=== PATIENT | female | born 1975 | race Two or more races ===

== ENCOUNTER 2020-07-28 12:56 | Emergency (ER) | payer MEDICAID, SELFPAY ==
[2020-07-28 13:28] VITALS: BP 125/67; PULSE 112; RESP 20; TEMP 37.7; O2SAT 98; BMI 23.3
[2020-07-28 13:36] VITALS: BP 125/67; PULSE 78; RESP 21; TEMP 37.7; O2SAT 98
--- NOTE | 2020-07-28 13:59 | ED_ITS ---
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 No vomiting, diarrhea, abdominal pain, cough, shortness of breath or chest pain Also c/o low back pain and voiding small amounts. Second COVID vaccine 3 days ago. Related Data Previous Rx's Medication Instructions Recorded nitrofurantoin monohyd/m-cryst 100 mg PO Q12H 7 Days #14 cap 07/28/20 [Macrobid] phenazopyridine [Pyridium] 200 mg PO TID #6 tab 07/28/20 Allergies Allergy/AdvReac Type Severity Reaction Status Date / Time Unable to Assess Allergy Verified 07/28/20 13:44 Review of Systems Review of Systems: Yes all other systems are reviewed and are negative Constitutional: Constitutional: Reports no additional constitutional complaints, Reports body ache(s), Denies chills, Reports fever(s), Denies headache(s) and Denies weakness Eyes: Eyes: Reports no additional eye complaints and Denies change in vision ENT: Reports system reviewed and no additional complaints, except as documented, Denies dizziness, Denies headache(s), Denies nasal congestion, Denies nasal discharge and Denies neck pain Cardiovascular: Cardiovascular: Reports no additional cardiovascular complaints, Denies chest pain, Denies leg edema and Denies dyspnea Respiratory: Respiratory: Reports no additional respiratory complaints, Denies cough and Denies dyspnea Gastrointestinal: Gastrointestinal: Reports no additional gastrointestinal complaints, Denies abdominal pain, Denies diarrhea, Denies nausea and Denies vomiting Genitourinary: Genitourinary: Reports no additional female genitourinary complaints and Denies urinary incontinence Musculoskeletal: Musculoskeletal: Reports no additional musculoskeletal complaints, Reports back pain, Denies arthralgias, Denies joint swelling, Denies neck pain, Denies numbness and Denies tingling Integumentary/Breasts: Skin/Breast: Reports system reviewed and no additional complaints, except as docu and Denies rash Neurologic: Reports system reviewed and no additional complaints, except as documented, Denies Abnormal speech present, Denies dizziness, Denies headache(s), Denies numbness, Denies tingling and Denies weakness PMFSH Past Medical History Attestation statement: The following information was validated with the patient. Source: old records reviewed and nursing notes reviewed Medical History No known health problems Social History Social History Alcohol intake: never Smoking Status: Never smoker Use of substances other than those prescribed or required for medical reasons: No Advance Directives: No Advance Directives Information Provided: No Physical Exam Vital Signs: Vital Signs: Last Vital Signs Temp 100 F 07/28/20 13:36 Pulse 78 07/28/20 13:36 Resp 21 H 07/28/20 13:36 BP 125/67 07/28/20 13:36 Pulse Ox 98 07/28/20 13:36 Body Mass Index 23.3 Const: General: cooperative, healthy appearing, comfortable and no acute distress Orientation/consciousness: patient oriented x3 Limitations: no limitations HENMT: Head: Yes normal to inspection Ears: hearing grossly normal bilatera lly and TM's normal bilaterally General nose exam: Normal external nose present Face and sinus: Yes normal facial exam Mouth: Normal oral and palatal mucosa present Throat: Yes posterior oropharynx normal, Yes tonsils normal and Yes uvula midline Eyes: General: appearance normal, both eyes and all related structures Pupils: Equal, round and reactive pupils present Neck: Neck: Yes normal visual inspection Chest: Chest palpation & inspection: normal inspection of the chest Resp: Effort & Inspection: normal respiratory effort Auscultation: clear to auscultation bilaterally Cardio: Rate: regular rate Rhythm: regular rhythm Peripheral pulses: Peripheral pulses 2+ throughout GI: Inspection: Yes normal to inspection Palpation (GI): Soft to palpation and nontender Auscultation: normal bowel sounds Back/Spine/Pelvis: Thoracic/Lumbar Spine: thoracic and lumbar spine normal to inspection Skin: General skin exam: no rashes or lesions noted Neuro: General: patient oriented x3, no focal motor deficits and normal sensation to monofilament Cranial nerves: Yes Equal, round and reactive pupils present Cognition (Neuro): normal cognition Speech: No Abnormal speech present Gait exam (Neuro): Normal gait present Motor exam (neuro): 5/5 motor strength present throughout Extrem: General: Yes normal to inspection Course Course Course Narrative: 45-year-old female here with subjective fevers, body aches, low back pain and voiding small amounts for several days. Of note, the patient did receive her 2nd COVID vaccine 3 days ago. Will need COVID screen, UA. 1500-COVID screen negative. UA consistent with UTI. No CVA tenderness, fever or systemic signs of infection. Will treat with course of antibiotics. Reviewed worrisome signs and symptoms when to return to the emergency department. Comfortable discharge home. Medical Decision Making Medical Records Medical records reviewed: Yes I reviewed the patient's medical records. Lab Data Lab results reviewed: Yes I reviewed the patient's lab results. Labs: Lab Results 07/28/20 07/28/20 07/28/20 Range/Units 14:15 14:15 14:15 Urine Color YELLOW Urine Appearance HAZY Urine pH 7.0 (5.0-8.0) Ur Specific [place] 1.010 (1.005-1.025) Urine Protein NEG (NEG-TRACE) MG/DL Urine Glucose (UA) NEG (NEG) MG/DL Urine Ketones NEG (NEG) MG/DL Urine Blood 2+ H (NEG) Urine Nitrite NEG (NEG) Ur Leukocyte Esterase 2+ H (NEG) Urine RBC 5-9 H (0) /HPF Urine WBC 30-49 H (0-4) /HPF Urine WBC Clumps NOTED Ur Squamous Epith Cells TRACE /LPF Urine Bacteria 1+ /LPF Urine Test NEGATIVE (NEGATIVE) COVID-19 (SHANNA) Negative (Negative) COVID-19 Clin Com See Note Discharge Plan Discharge Clinical Impression: UTI (urinary tract infection) Patient Disposition: Home, Self-Care Instructions: Urinary Tract Infection in Women (ED) Additional Instructions: Increase fluids, rest Your COVID screen was negative Prescriptions: New nitrofurantoin monohyd/m-cryst [Macrobid] 100 mg capsule 100 mg PO Q12H 7 Days Qty: 14 RF: 0 phenazopyridine [Pyridium] 200 mg tablet 200 mg PO TID Qty: 6 RF: 0 Referrals: Physician,Unknown [Primary Care Provider] - 2 days Interventions: ED Discharge Assessment Last Done: 07/28/20 15:41 Discharge Date/Time: 07/28/20 15:41 Print Language: Stateless
[2020-07-28 14:26] LABS: Glucose Urine UA NEG (NEG); Leukocyte Esterase Urine 2+ (NEG); Nitrite Urine NEG (NEG); UACC Culture Trigger YES; Urine Blood 2+ (NEG); Urine Ketones NEG (NEG); Urine Protein NEG (NEG-TRACE)
[2020-07-28 14:27] LABS: Appearance Urine HAZY; Color Urine YELLOW
[2020-07-28 14:28] LABS: UPreg QC Valid YES; Urine Pregnancy NEGATIVE (NEGATIVE)
[2020-07-28 14:34] LABS: Bacteria Urine 1+ /LPF; Squamous Epithelial Cell Urine TRACE /LPF; WBC Clumps Urine NOTED; WBC Urine 30-49 /HPF (0-4)
[2020-07-28 14:40] LABS: COVID-19 Test Negative (Negative)
== END 2020-07-28 15:41 | disposition home or self-care (01) ==
PROVIDERS: Nurse Practitioner Family; Emergency Provider Emergency Medicine Emergency Medical Services
DX: N39.0 Urinary tract infection, site not specified (principal); R50.9 Fever, unspecified; M79.10 Myalgia, unspecified site; R05 Cough; Z20.822 Contact with and (suspected) exposure to COVID-19; Z79.899 Other long term (current) drug therapy
CPT/HCPCS: 36415; 81001; 81003; 81025; 87086; 87088; 87186; 87635; 99284

== ENCOUNTER 2020-10-27 13:01 | Outpatient (REF) | payer MEDICAID, OTHER, SELFPAY ==
--- NOTE | ~2020-10-27 | MM_ITS ---
EXAMINATION: MM SCREENING DIGITAL BREAST TOMOSYNTHESIS, BILATERAL CLINICAL INFORMATION: Screening. Asymptomatic. Prior outside mammography from [facility] unavailable. Age 45. No known family history breast cancer. The lifetime risk of breast cancer based on the Tyrer-Cuzick Model is 10%. COMPARISON: None. TECHNIQUE: Digital breast tomosynthesis is performed in both the craniocaudal and mediolateral oblique views along with computer-aided detection (CAD). Synthesized 2D images are generated from the tomosynthesis. FINDINGS: The breasts are heterogeneously dense, which may obscure small masses (ACR BI-RADS breast composition Category c). There is a benign-appearing circumscribed nodule with smooth margins mid 12:30 o'clock right breast measuring 0.8 x 0.6 cm. As this exam represents new baseline, patient will be recalled for targeted ultrasound to further characterize. There are scattered bilateral benign-appearing punctate calcifications, greater in number on right. No focal grouping or pleomorphic types. There is no architectural abnormality. The axilla and skin contours are unremarkable. MM/MM tomosynthesis screening BI IMPRESSION: 1. Right: Circumscribed benign-appearing nodule mid 12:30 o'clock position. 2. Left: No mammographic evidence of malignancy. ASSESSMENT: BI-RADS 0: Incomplete - Need Additional Imaging Evaluation RECOMMENDATION: 1. Targeted ultrasound right breast. 2. Radiology department staff will contact the patient for additional imaging. This patient's information was entered into a reminder system with a target due date for their next mammogram.
== END 2020-10-27 13:02 | disposition home or self-care (01) ==
LOC: HO.MAMMO 13:01
PROVIDERS: PCP Family Medicine; Visit Provider Emergency Medicine
DX: Z12.31 Encounter for screening mammogram for malignant neoplasm of breast (principal)
CPT/HCPCS: 77063; 77067

== ENCOUNTER 2020-11-04 13:46 | Outpatient (REF) | payer MEDICAID, OTHER, SELFPAY ==
--- NOTE | ~2020-11-04 | US_ITS ---
EXAMINATION: US DIAGNOSTIC ULTRASOUND BREAST, RIGHT CLINICAL INFORMATION: Recall from screening for benign-appearing circumscribed nodule with smooth margins mid 12:30 o'clock right breast 0.8 x 0.6 cm. Prior outside mammography from [facility] unavailable. Age 45. TC score 10%. COMPARISON: Mammography 10/27/2020. TECHNIQUE: Ultrasound right breast is targeted to the upper breast using grayscale imaging and color Doppler without and with harmonics. FINDINGS: Targeted ultrasound fails to reveal an ultrasound correlate for the finding on mammography. There is no cystic or solid mass or architectural abnormality. No focal duct ectasia or abnormal color flow. Results are discussed with the patient at time of visit, using an pot holder binder. Patient recalls history of small cyst noted on outside exams. If patient is able to retrieve prior outside study, comparison will be made in an addendum report. Otherwise, will suggest short interval follow-up right mammography in 6 months to confirm stability of the probable benign circumscribed nodule. US/US breast RT limited IMPRESSION: No ultrasound correlate for benign-appearing circumscribed nodule on mammography. ASSESSMENT: BI-RADS 3: Probably Benign RECOMMENDATION: Diagnostic right mammography in 6 months. This patient's information was entered into a reminder system with a target due date for their next mammogram.
== END 2020-11-04 13:47 | disposition home or self-care (01) ==
LOC: HO.MAMMO 13:46
PROVIDERS: Visit Provider Emergency Medicine
DX: N63.15 Unspecified lump in the right breast, overlapping quadrants (principal)
CPT/HCPCS: 76642

== ENCOUNTER 2021-05-05 08:40 | Outpatient (REF) | payer MEDICAID, OTHER, SELFPAY ==
--- NOTE | ~2021-05-05 | XR_ITS ---
EXAMINATION: XR SHOULDER, LEFT CLINICAL INFORMATION: Left shoulder pain, swelling and mass. COMPARISON: None TECHNIQUE: AP external rotation, Grashey, scapular Y, and axillary views of the left shoulder. FINDINGS: The glenohumeral joint space and the AC joint space is maintained normal. No visible acute fracture, dislocation or subluxation seen. The soft tissues are normal. XR/XR shoulder LT min 2V IMPRESSION: Unremarkable left shoulder exam
== END 2021-05-05 08:41 | disposition home or self-care (01) ==
LOC: HO.XRAY 08:40
PROVIDERS: Absent Provider Nurse Practitioner Family; PCP Nurse Practitioner Family; Visit Provider Internal Medicine
DX: M25.512 Pain in left shoulder (principal); R22.32 Localized swelling, mass and lump, left upper limb
CPT/HCPCS: 73030

== ENCOUNTER 2021-05-09 10:15 | Outpatient (REF) | payer MEDICAID, OTHER, SELFPAY ==
--- NOTE | ~2021-05-09 | MM_ITS ---
EXAMINATION: MM DIAGNOSTIC DIGITAL BREAST TOMOSYNTHESIS, RIGHT CLINICAL INFORMATION: Short interval six-month follow-up probable benign circumscribed nodule mid 12:30 o'clock right breast. No ultrasound correlate. The lifetime risk of breast cancer based on the Tyrer-Cuzick Model is 10%. COMPARISON: Mammography: 10/27/2020, targeted right breast ultrasound 11/04/2020; Outside mammography copied on paper 12/15/2019 and outside ultrasound copied on paper 12/26/2019 ([facility] TECHNIQUE: Digital breast tomosynthesis is performed in both the craniocaudal and mediolateral oblique views along with computer-aided detection (CAD). Synthesized 2D images are generated from the tomosynthesis. FINDINGS: The breasts are heterogeneously dense, which may obscure small masses (ACR BI-RADS breast composition Category c). Parenchymal pattern is similar to prior mammography. There is no interval mass or architectural abnormality or abnormal calcifications. The circumscribed nodule mid 12:30 o'clock position is stable. In retrospect, the circumscribed nodule is also seen without apparent change on outside paper copy right [facility] mammography 12/15/2019. The right breast nodule with be reassessed again at time of annual bilateral exam, due in 6 months. Results are provided to the patient at time of visit by the technologist using an crew caller. MM/MM tomosynthesis diagnostic RT IMPRESSION: No significant changes from prior exam. Circumscribed nodule mid 12:30 o'clock position is stable from prior study and appears similar to outside copy mammography 12/15/2019. ASSESSMENT: BI-RADS 3: Probably Benign RECOMMENDATION: Diagnostic mammography at time of annual bilateral exam, due in 6 months. This patient's information was entered into a reminder system with a target due date for their next mammogram.
== END 2021-05-09 10:16 | disposition home or self-care (01) ==
LOC: HO.MAMMO 10:15
PROVIDERS: PCP Internal Medicine; Visit Provider Family Medicine
DX: N63.12 Unspecified lump in the right breast, upper inner quadrant (principal)
CPT/HCPCS: 77061; 77065

== ENCOUNTER 2021-11-08 13:09 | Outpatient (REF) | payer OTHER, SELFPAY ==
--- NOTE | ~2021-11-08 | MM_ITS ---
EXAMINATION: MM DIAGNOSTIC DIGITAL BREAST TOMOSYNTHESIS, BILATERAL CLINICAL INFORMATION: Due for yearly. Also follow-up probable benign circumscribed nodule mid 12:30 o'clock right breast. No ultrasound correlate. The lifetime risk of breast cancer based on the Tyrer-Cuzick Model is 11%. COMPARISON: Mammography: 05/09/2021, 10/27/2020 (BI-RADS 0); ultrasound right breast 11/04/2020 TECHNIQUE: Digital breast tomosynthesis is performed in both the craniocaudal and mediolateral oblique views along with computer-aided detection (CAD). Synthesized 2D images are generated from the tomosynthesis. FINDINGS: The breasts are heterogeneously dense, which may obscure small masses (ACR BI-RADS breast composition Category c). Parenchymal pattern is similar to prior studies. There is no interval mass or architectural abnormality or developing density. There are scattered punctate calcifications similar in number and distribution. Dermal lesion again seen overlying mid upper left breast, previously marked with skin marker. The smooth oval nodule mid 12:00 right breast is stable and will be reassessed again at next bilateral annual mammography, due in one year. Results are provided to the patient at time of visit by the technologist. MM/MM tomosynthesis diagnostic BI IMPRESSION: -No significant changes from prior studies. -Smooth oval nodule right breast, stable. ASSESSMENT: BI-RADS 3: Probably Benign RECOMMENDATION: Diagnostic mammography at time of next annual exam, due in 12 months. This patient's information was entered into a reminder system with a target due date for their next mammogram.
== END 2021-11-08 13:10 | disposition home or self-care (01) ==
LOC: HO.MAMMO 13:09
PROVIDERS: Visit Provider Family Medicine
DX: N63.15 Unspecified lump in the right breast, overlapping quadrants (principal)
CPT/HCPCS: 77062; 77066

== ENCOUNTER 2022-05-18 18:29 | Emergency (ER) | payer OTHER, SELFPAY ==
--- NOTE | ~2022-05-18 | XR_ITS ---
EXAMINATION: XR CHEST CLINICAL INFORMATION: Cough. COMPARISON: None TECHNIQUE: Frontal portable view of the chest was obtained. 9:02 PM FINDINGS: No significant abnormality is noted involving the heart, lungs, mediastinum, bony thorax or soft tissues. XR/XR chest 1V IMPRESSION: Unremarkable examination.
[2022-05-18 19:05] VITALS: BP 157/90; PULSE 106; O2SAT 98; BMI 26.2
[2022-05-18 19:11] VITALS: BP 141/84; PULSE 86; RESP 18; TEMP 37.2; O2SAT 98
--- NOTE | 2022-05-18 19:58 | ED_ITS ---
HPI - General Adult General Chief complaint: General Medical Stated complaint: TINLY/NUMB/WEAK ALL EXT X45 MIN PER EMS Time Seen by Provider: 05/18/22 19:33 Source: patient Mode of arrival: ambulatory Limitations: no limitations History of Present Illness HPI narrative: Patient been coughing for last 3 weeks with chills cough is mostly dry earlier today patient was coughing and had severe headache at 6 PM while coughing. 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 no urinary complaints does have chills no fever patient denies any urine symptoms no flank pain or abdominal pain Related Data Previous Rx's Medication Instructions Recorded nitrofurantoin 100 mg PO Q12H 7 days #14 caps 07/28/20 monohydrate/macrocrystals 100 mg capsule (Macrobid) phenazopyridine 200 mg tablet 200 mg PO TID 6 doses #6 tabs 07/28/20 (Pyridium) albuterol sulfate 90 mcg/actuation 2 puff inhalation Q4-6H PRN 05/18/22 aerosol inhaler (ProAir HFA) shortness of breath or wheezing #8.5 grams benzonatate 200 mg capsule 200 mg PO TID PRN cough #30 caps 05/18/22 cefuroxime axetil 500 mg tablet 500 mg PO BID #20 tabs 05/18/22 prednisone 20 mg tablet 40 mg PO DAILY #10 tabs 05/18/22 Allergies Allergy/AdvReac Type Severity Reaction Status Date / Time Unable to Assess Allergy Verified 07/28/20 13:44 Review of Systems Review of Systems: Constitutional : No Weight loss, No Fever, No Chills ENT/Mouth : No sore throat, No Rhinorrhea Eyes: No Eye Pain, No Swelling Cardiovascular : No Chest Pain, no palpitations Respiratory : ++Cough, No Sputum, no shortness of breath Gastrointestinal : no Nausea, No Vomiting, No Diarrhea, No abdominal Pain, no black stools Genitourinary : No Dysuria, No Urinary Frequency Musculoskeletal : No joint pain, No Myalgias, No Joint Swelling Skin : No Skin Lesions, No rash Neuro : No Weakness, No Numbness, No Dizziness, No Headache Psych : No Anxiety/Panic, No Depression Heme/Lymph: No Bruising, No Lymphadenopathy Endocrine : No Polyuria, No Polydipsia All other systems reviewed and are negative Yes all other systems are reviewed and are negative [facility] Past Medical History Medical History No known health problems Social History Social History Alcohol intake: never Advance Directives: No Advance Directives Information Provided: No Physical Exam ED Vital Signs: Vital Signs - 24 hr 05/18/22 19:11 05/18/22 21:05 05/18/22 21:15 Temperature 99.0 F Pulse Rate 86 90 85 Respiratory Rate 18 16 16 Blood Pressure 141/84 H 151/89 H Pulse Oximetry 98 96 Oxygen Delivery Method Room Air Room Air BMI result Body Mass Index 26.2 Appearance: Alert. Oriented X3. No acute distress. Eyes: PERRLA, No Nystagmus ENT: Pharynx normal. Oral Mucosa moist Neck: Normal inspection. Neck supple. CVS: Normal heart rate and rhythm. Pulses normal. Respiratory: No respiratory distress. Equal air entry bilateral, occasional rhonchi prolonged expiration with frequent dry cough Abdomen: Soft and nontender. Bowel sounds are present, no mass palpable, no CVA tenderness Skin: Skin warm and dry. Normal skin color. Normal skin turgor. Extremities: No lower extremity edema. No calf tenderness Neuro: Oriented X 3. No motor deficit. No sensory deficit.No cerebellar signs , cranial nerves II-XII intact Medications Administered Discontinued Medications Generic Name Dose Route Start Last Admin Trade Name Freq PRN Reason Stop Dose Admin Cefuroxime Axetil 500 mg 05/18/22 20:55 05/18/22 21:44 Cefuroxime Axetil 500 Mg Tablet PO 05/18/22 20:56 500 mg ONCE ONE Administration Albuterol Sulfate 5 mg/ 0 mg 05/18/22 20:55 05/18/22 21:05 Ipratropium [place] 0.5 mg INHALE 05/18/22 20:56 1 each ONCE ONE Administration Guaifenesin/Codeine Phosphate 10 ml 05/18/22 20:55 05/18/22 21:44 Guaifen/Codeine Sf 200/20/10ml 10 Ml Liquid PO 05/18/22 20:56 10 ml ONCE ONE Administration Prednisone 40 mg 05/18/22 20:55 05/18/22 21:44 Prednisone 20 Mg Tablet PO 05/18/22 20:56 40 mg ONCE ONE Administration Medical Decision Making Medical Decision Making [facility] Narrative: Patient with dry cough chest x-ray negative for any acute infiltrate urine shows nitrite positive with WBCs patient denied any urinary symptoms headache is improved likely from the post-tussive headache. Discharge patient home on p rednisone Ceftin and albuterol inhaler Differential Diagnosis Pneumonia/COVID/flu/influenza Lab Data [facility] Lab Attestation statement: I reviewed the patient's lab results. Labs: Lab Results 05/18/22 05/18/22 05/18/22 Range/Units 20:31 21:13 21:13 Urine Color Yellow Urine Appearance Clear Urine pH 6.0 (5.0-9.0) Ur Specific [place] <= 1.005 (1.005-1.025) Urine Protein Negative (Neg-Trace) mg/dL Urine Glucose (UA) Negative (Negative) mg/dL Urine Ketones Negative (Negative) mg/dL Urine Blood Large (3+) H (Negative) Urine Nitrite Positive H (Negative) Ur Leukocyte Esterase Negative (Negative) Urine RBC 0-2 (0-2) /HPF Urine WBC 0-5 (0-5) /HPF Ur Squamous Epith Cells 0-2 (0-2) /HPF Urine Bacteria 4+ (None Seen) Hyaline Casts 0-2 (0-2) /LPF COVID-19 (SHANNA) Negative (Negative) COVID-19 Clin Com See Note Influenza Type A (KRISTOPHER) Negative (Negative) Influenza Type B (KRISTOPHER) Negative (Negative) Influenza A & B Note See Note Discharge Plan Discharge Clinical Impression: Acute bronchitis, UTI (urinary tract infection) Patient Disposition: Home, Self-Care Instructions: Urinary Tract Infection in Women (ED), Acute Bronchitis (ED) Additional Instructions: Drink plenty of fluids Take antibiotics, prednisone, inhaler as prescribed Cough drops as prescribed Follow with PCP if not better Prescriptions: New benzonatate 200 mg capsule 200 mg PO TID PRN (Reason: cough) Qty: 30 0RF prednisone 20 mg tablet 40 mg PO DAILY Qty: 10 0RF cefuroxime axetil 500 mg tablet 500 mg PO BID Qty: 20 0RF albuterol sulfate [ProAir HFA] 90 mcg/actuation HFA aerosol inhaler 2 puff inhalation Q4-6H PRN (Reason: shortness of breath or wheezing) Qty: 8.5 0RF No Action nitrofurantoin monohyd/m-cryst [Macrobid] 100 mg capsule 100 mg PO Q12H 7 Days Qty: 14 0RF Rx Instructions: must administer with a meal/food phenazopyridine [Pyridium] 200 mg tablet 200 mg PO TID Qty: 6 0RF Interventions: ED Discharge Assessment Last Done: 05/18/22 22:45 Discharge Date/Time: 05/18/22 22:46
[2022-05-18 20:43] LABS: Appearance Urine Clear; Color Urine Yellow; Glucose Urine UA Negative (Negative); Leukocyte Esterase Urine Negative (Negative); Nitrite Urine Positive (Negative); Specific Gravity - Urine <= 1.005 (1.005-1.025); UMIC TRIGGER UACC YES; Urine Blood Large (3+) (Negative); Urine Ketones Negative (Negative); Urine Protein Negative (Neg-Trace)
[2022-05-18 20:56] LABS: Bacteria Urine 4+ (None Seen); Hyaline Casts Urine 0-2 /LPF (0-2); RBC Urine 0-2 /HPF (0-2); Squamous Epithelial Cell Urine 0-2 /HPF (0-2); UACC Culture Trigger YES; WBC Urine 0-5 /HPF (0-5)
[2022-05-18 21:05] VITALS: PULSE 90; RESP 16; O2SAT 98
[2022-05-18 21:15] VITALS: BP 151/89; PULSE 85; RESP 16; O2SAT 96
[2022-05-18 21:34] LABS: COVID-19 Test Negative (Negative); IDNOW Serial# 6674DD1D
[2022-05-18 21:37] LABS: IDNOW Serial# 55D5AD1C; Influenza A Negative (Negative); Influenza B2 Negative (Negative)
[2022-05-18] MEDS: predniSONE 20 MG TABLET 40 MG PO (21:44)
[2022-05-18] MEDS: guaiFEN/Codeine SF 200/20/10ML 10 ML LIQUID PO (21:44)
== END 2022-05-18 22:46 | disposition home or self-care (01) ==
PROVIDERS: Emergency Provider Internal Medicine; PCP Registered Nurse
DX: J20.9 Acute bronchitis, unspecified (principal); N39.0 Urinary tract infection, site not specified; R05.9 Cough, unspecified; R51.9 Headache, unspecified; Z20.828 Contact with and (suspected) exposure to other viral communicable diseases; Z20.822 Contact with and (suspected) exposure to COVID-19; Z79.899 Other long term (current) drug therapy
CPT/HCPCS: 71045; 81001; 87086; 87088; 87186; 87502; 87635; 94640; 99284

== ENCOUNTER 2022-05-23 16:26 | Emergency (ER) | payer OTHER, SELFPAY ==
--- NOTE | ~2022-05-23 | CT_ITS ---
EXAMINATION: CT HEAD WITHOUT CONTRAST CLINICAL INFORMATION: Headache. Hypertension. COMPARISON: None available. TECHNIQUE: Contiguous axial imaging was performed from the skull base to vertex without intravenous administration of contrast. This CT examination was performed using dose optimization techniques as appropriate, variously including the following: *Automated exposure control. *Adjustment of mA and/or kV according to patient size (this includes techniques or standardized protocols for targeted exams where dose is matched to indication/reason for exam; i.e. extremities or head). *Use of iterative reconstruction technique. DLP: 608 mGy-cm FINDINGS: There is no evidence of acute intracranial hemorrhage or edematous territorial infarction. Real-white matter differentiation is preserved. There is no abnormal attenuation within the brain parenchyma. The ventricles are normal in morphology and size. No evidence for obstructive hydrocephalus. No abnormal mass effect or midline shift. No extra-axial fluid collections. No acute soft tissue or osseous abnormalities. The mastoid air cells and visualized paranasal sinuses are clear. CT/CT head/brain wo IV con IMPRESSION: No evidence of acute intracranial hemorrhage or edematous territorial infarction.
--- NOTE | ~2022-05-23 | XR_ITS ---
EXAMINATION: XR CHEST CLINICAL INFORMATION: Cough. COMPARISON: 05/18/2022 chest radiograph. TECHNIQUE: Frontal view of the chest was obtained. FINDINGS: No significant abnormality is noted involving the heart, lungs, mediastinum, bony thorax or soft tissues. XR/XR chest 1V IMPRESSION: No acute cardiopulmonary process.
[2022-05-23 16:32] VITALS: BP 142/83; BP 172/90; PULSE 100; PULSE 95; RESP 18; TEMP 37.2; O2SAT 94; O2SAT 98; BMI 26.2
--- NOTE | 2022-05-23 16:32 | ED.GENADULT ---
HPI - General Adult General Chief complaint: Weakness <RUBY Gan - Last Filed: 05/23/22 16:40> Stated complaint: weakness <RUBY Gan - Last Filed: 05/23/22 16:40> Time Seen by Provider: 05/23/22 21:57 <RUBY Gan - Last Filed: 05/23/22 16:40> Source: patient <Darrick Childers MD - Last Filed: 05/23/22 23:21> Mode of arrival: ambulatory <Darrick Childers MD - Last Filed: 05/23/22 23:21> Limitations: no limitations <Darrick Childers MD - Last Filed: 05/23/22 23:21> History of Present Illness HPI narrative: Patient was seen here 4 days ago for cough bronchitis at the time patient's blood pressure was elevated comes here again as today when they checked the blood pressure was elevated to 200/90 , on arrival was 172/90 repeat blood pressure was 146/88 patient worried and having the headache patient's mother had aneurysm Patient is still coughing but is much better now <Darrick Childers MD - Last Filed: 05/23/22 23:21> Related Data Home medications: Previous Rx's Medication Instructions Recorded nitrofurantoin 100 mg PO Q12H 7 days #14 caps 07/28/20 monohydrate/macrocrystals 100 mg capsule (Macrobid) phenazopyridine 200 mg tablet 200 mg PO TID 6 doses #6 tabs 07/28/20 (Pyridium) albuterol sulfate 90 mcg/actuation 2 puff inhalation Q4-6H PRN 05/18/22 aerosol inhaler (ProAir HFA) shortness of breath or wheezing #8.5 grams benzonatate 200 mg capsule 200 mg PO TID PRN cough #30 caps 05/18/22 cefuroxime axetil 500 mg tablet 500 mg PO BID #20 tabs 05/18/22 prednisone 20 mg tablet 40 mg PO DAILY #10 tabs 05/18/22 amlodipine 2.5 mg tablet 2.5 mg PO DAILY #30 tabs 05/23/22 <RUBY Gan - Last Filed: 05/23/22 16:40> Allergies/adverse reactions: Allergies Allergy/AdvReac Type Severity Reaction Status Date / Time No Known Allergies Allergy Verified 05/23/22 16:37 <RUBY Gan - Last Filed: 05/23/22 16:40> Review of Systems Review of Systems: Constitutional : No Weight loss, No Fever, No Chills ENT/Mouth : No sore throat, No Rhinorrhea Eyes: No Eye Pain, No Swelling Cardiovascular : No Chest Pain, no palpitations Respiratory : ++ Cough, No Sputum, no shortness of breath Gastrointestinal : no Nausea, No Vomiting, No Diarrhea, No abdominal Pain, no black stools Genitourinary : No Dysuria, No Urinary Frequency Musculoskeletal : No joint pain, No Myalgias, No Joint Swelling Skin : No Skin Lesions, No rash Neuro : No Weakness, No Numbness, No Dizziness, + Headache Psych : No Anxiety/Panic, No Depression Heme/Lymph: No Bruising, No Lymphadenopathy Endocrine : No Polyuria, No Polydipsia All other systems reviewed and are negative <Darrick Childers MD - Last Filed: 05/23/22 23:21> Yes all other systems are reviewed and are negative <Darrick Childers MD - Last Filed: 05/23/22 23:21> ON LICENSE OF [facility] Past Medical History Medical History: Medical History No known health problems <RUBY Gan - Last Filed: 05/23/22 16:40> Social History Social History: Social History Alcohol intake: never Advance Directives: No Advance Directives Information Provided: Yes <RUBY Gan - Last Filed: 05/23/22 16:40> Physical Exam ED Vital Signs: Vital Signs - 24 hr 05/23/22 16:32 05/23/22 18:08 05/23/22 22:09 Temperature 98.9 F 97.3 F Pulse Rate 95 95 94 Respiratory Rate 18 18 16 Blood Pressure 172/90 H 146/88 H 151/68 H Pulse Oximetry 94 97 97 Oxygen Delivery Method Room Air Room Air Room Air 05/23/22 23:03 Temperature Pulse Rate 82 Respiratory Rate 16 Blood Pressure 156/81 H Pulse Oximetry 97 Oxygen Delivery Method Room Air BMI result Body Mass Index 26.2 <RUBY Gan - Last Filed: 05/23/22 16:40> Vital Signs - 24 hr 05/23/22 16:32 05/23/22 18:08 05/23/22 22:09 Temperature 98.9 F 97.3 F Pulse Rate 95 95 94 Respiratory Rate 18 18 16 Blood Pressure 172/90 H 146/88 H 151/68 H Pulse Oximetry 94 97 97 Oxygen Delivery Method Room Air Room Air Room Air 05/23/22 23:03 Temperature Pulse Rate 82 Respiratory Rate 16 Blood Pressure 156/81 H Pulse Oximetry 97 Oxygen Delivery Method Room Air BMI result Body Mass Index 26.2 <Darrick Childers MD - Last Filed: 05/23/22 23:21> Appearance: Alert. Oriented X3. No acute distress. Eyes: PERRLA, No Nystagmus ENT: Pharynx normal. Oral Mucosa moist Neck: Normal inspection. Neck supple. CVS: Normal heart rate and rhythm. Pulses normal. Respiratory: No respiratory distress. Equal air entry bilateral, no wheezing/rales/rhonchi Abdomen: Soft and nontender. Bowel sounds are present, no mass palpable, no CVA tenderness Skin: Skin warm and dry. Normal skin color. Normal skin turgor. Extremities: No lower extremity edema. No calf tenderness Neuro: Oriented X 3. No motor deficit. No sensory deficit.No cerebellar signs , cranial nerves II-XII intact <Darrick Childers MD - Last Filed: 05/23/22 23:21> Course Course Course Narrative: 47-year-old F w/no sig PMHx presenting to ED c/o cough, generalized fatigue/weakness x4 days & intermittent WILKINS x today. sating 97% on RA Recently seen our facility on 05/18 diagnosed bronchitis discharged on Prednisone, Ceftin, and Albuterol inhaler, presenting to the ED today EKG, Labs, UA, CXR, COVID/FLU ordered <RUBY Gan - Last Filed: 05/23/22 16:40> Medications Administered Discontinued Medications Generic Name Dose Route Start Last Admin Trade Name Freq PRN Reason Stop Dose Admin Amlodipine Besylate 2.5 mg 05/23/22 22:10 05/23/22 22:19 Amlodipine Besylate 2.5 Mg Tablet PO 05/23/22 22:11 2.5 mg ONCE ONE Administration Protocol <RUBY Gan - Last Filed: 05/23/22 16:40> Medications Administered Discontinued Medications Generic Name Dose Route Start Last Admin Trade Name Tommie PRN Reason Stop Dose Admin Amlodipine Besylate 2.5 mg 05/23/22 22:10 05/23/22 22:19 Amlodipine Besylate 2.5 Mg Tablet PO 05/23/22 22:11 2.5 mg ONCE ONE Administration Protocol <Darrick Childers MD - Last Filed: 05/23/22 23:21> Medical Decision Making Medical Decision Making MDM Narrative: Patient with fluctuation of blood pressure in the ER also patient broke which was between 160/90 and 140/88 patient worried about it would like to start on blood pressure medication will start her on amlodipine 2.5 mg which was good for the migraine headaches patient will be seeing her PCP next week CT scan of the head is negative for acute blood pressure 145/83 patient feeling better will discharge patient home advised to follow with PCP <Darrick Childers MD - Last Filed: 05/23/22 23:21> Lab Data [facility] Lab Attestation statement: I reviewed the patient's lab results. <Darrick Childers MD - Last Filed: 05/23/22 23:21> Result Diagrams: 05/23/22 17:55 05/23/22 17:55 <RUBY Gan - Last Filed: 05/23/22 16:40> Labs: Lab Results 05/23/22 05/23/22 05/23/22 Range/Units 17:55 17:55 17:55 WBC (4.8-10.8) X10*3/uL RBC (4.20-5.50) X10*6/uL Hgb (12.0-16.0) g/dl Hct (37.0-47.0) % MCV (80.0-98.0) fL MCH (27.0-33.0) pg MCHC (31.0-35.0) g/dl RDW (11.0-16.0) % Plt Count (160-400) X10*3/uL MPV (9.4-12.3) fL Immature Gran % (Auto) (0.0-0.4) % Neut % (Auto) (45-73) % Lymph % (Auto) (20-40) % Cache % (Auto) (2-11) % Eos % (Auto) (0-4) % Baso % (Auto) (0-2) % Lymph # (Auto) (1.2-4.9) X10*3/uL Cache # (Auto) (0.1-1.2) X10*3/uL Eos # (Auto) (0.0-0.4) X10*3/uL Baso # (Auto) (0.0-0.2) X10*3/uL Abs Immat Gran (auto) (0.00-0.03) X10*3/uL Absolute Neuts (auto) (2.0-8.3) x10*3/uL Absolute Nucleated RBC (0.0-0.012) X10*3/uL Nucleated RBC % (auto) (0.0-0.2) /100WBC Sodium 140 (135-145) mmol/L Potassium 4.2 (3.3-5.1) mmol/L Chloride 107 (96-108) mmol/L Carbon Dioxide 22 (22-29) mmol/L Anion Gap 15 (12-20) BUN 11 (9-16) mg/dL Creatinine 0.81 (0.5-1.4) mg/dL Estim Creat Clear Calc 86.1 Estimated GFR > 60 Random Glucose 181 H (60-115) mg/dL Calcium 9.0 (8.4-10.2) mg/dL Magnesium 2.1 (1.6-2.6) mg/dL Total Bilirubin 0.4 (0.0-1.0) mg/dL Direct Bilirubin < 0.2 (0.0-0.5) mg/dL AST 18 (5-31) U/L ALT 16 (0-31) U/L Alkaline Phosphatase 61 (39-117) U/L Troponin I High Sens (<3.5-17.0) ng/L Total Protein 7.6 (6.5-8.0) g/dL Albumin 4.1 (3.5-5.0) g/dL Urine Color Urine Appearance Urine pH (5.0-9.0) Ur Specific [place] (1.005-1.025) Urine Protein (Neg-Trace) mg/dL Urine Glucose (UA) (Negative) mg/dL Urine Ketones (Negative) mg/dL Urine Blood (Negative) Urine Nitrite (Negative) Ur Leukocyte Esterase (Negative) Urine RBC (0-2) /HPF Urine WBC (0-5) /HPF Ur Squamous Epith Cells (0-2) /HPF Urine Bacteria (None Seen) Hyaline Casts (0-2) /LPF COVID-19 (SHANNA) Negative (Negative) COVID-19 Clin Com See Note Influenza Type A (KRISTOPHER) Negative (Negative) Influenza Type B (KRISTOPHER) Negative (Negative) Influenza A & B Note See Note 05/23/22 05/23/22 05/23/22 Range/Units 17:55 17:55 18:18 WBC 7.2 (4.8-10.8) X10*3/uL RBC 4.36 (4.20-5.50) X10*6/uL Hgb 13.2 (12.0-16.0) g/dl Hct 37.4 (37.0-47.0) % MCV 85.8 (80.0-98.0) fL MCH 30.3 (27.0-33.0) pg MCHC 35.3 H (31.0-35.0) g/dl RDW 13.1 (11.0-16.0) % Plt Count 372 (160-400) X10*3/uL MPV 9.9 (9.4-12.3) fL Immature Gran % (Auto) 1.1 H (0.0-0.4) % Neut % (Auto) 85.1 H (45-73) % Lymph % (Auto) 11.6 L (20-40) % Cache % (Auto) 2.1 (2-11) % Eos % (Auto) 0.0 (0-4) % Baso % (Auto) 0.1 (0-2) % Lymph # (Auto) 0.8 L (1.2-4.9) X10*3/uL Cache # (Auto) 0.2 (0.1-1.2) X10*3/uL Eos # (Auto) 0.0 (0.0-0.4) X10*3/uL Baso # (Auto) 0.0 (0.0-0.2) X10*3/uL Abs Immat Gran (auto) 0.08 H (0.00-0.03) X10*3/uL Absolute Neuts (auto) 6.1 (2.0-8.3) x10*3/uL Absolute Nucleated RBC 0.000 (0.0-0.012) X10*3/uL Nucleated RBC % (auto) 0.0 (0.0-0.2) /100WBC Sodium (135-145) mmol/L Potassium (3.3-5.1) mmol/L Chloride (96-108) mmol/L Carbon Dioxide (22-29) mmol/L Anion Gap (12-20) BUN (9-16) mg/dL Creatinine (0.5-1.4) mg/dL Estim Creat Clear Calc Estimated GFR Random Glucose (60-115) mg/dL Calcium (8.4-10.2) mg/dL Magnesium (1.6-2.6) mg/dL Total Bilirubin (0.0-1.0) mg/dL Direct Bilirubin (0.0-0.5) mg/dL AST (5-31) U/L ALT (0-31) U/L Alkaline Phosphatase (39-117) U/L Troponin I High Sens < 3.5 (<3.5-17.0) ng/L Total Protein (6.5-8.0) g/dL Albumin (3.5-5.0) g/dL Urine Color Yellow Urine Appearance Clear Urine pH 8.5 (5.0-9.0) Ur Specific [place] 1.010 (1.005-1.025) Urine Protein Negative (Neg-Trace) mg/dL Urine Glucose (UA) 100 H (Negative) mg/dL Urine Ketones Negative (Negative) mg/dL Urine Blood Trace H (Negative) Urine Nitrite Negative (Negative) Ur Leukocyte Esterase Negative (Negative) Urine RBC 0-2 (0-2) /HPF Urine WBC 0-5 (0-5) /HPF Ur Squamous Epith Cells 0-2 (0-2) /HPF Urine Bacteria None Seen (None Seen) Hyaline Casts 0-2 (0-2) /LPF COVID-19 (SHANNA) (Negative) COVID-19 Clin Com Influenza Type A (KRISTOPHER) (Negative) Influenza Type B (KRISTOPHER) (Negative) Influenza A & B Note <RUBY Gan - Last Filed: 05/23/22 16:40> Lab Results 05/23/22 05/23/22 05/23/22 Range/Units 17:55 17:55 17:55 WBC (4.8-10.8) X10*3/uL RBC (4.20-5.50) X10*6/uL Hgb (12.0-16.0) g/dl Hct (37.0-47.0) % MCV (80.0-98.0) fL MCH (27.0-33.0) pg MCHC (31.0-35.0) g/dl RDW (11.0-16.0) % Plt Count (160-400) X10*3/uL MPV (9.4-12.3) fL Immature Gran % (Auto) (0.0-0.4) % Neut % (Auto) (45-73) % Lymph % (Auto) (20-40) % Cache % (Auto) (2-11) % Eos % (Auto) (0-4) % Baso % (Auto) (0-2) % Lymph # (Auto) (1.2-4.9) X10*3/uL Cache # (Auto) (0.1-1.2) X10*3/uL Eos # (Auto) (0.0-0.4) X10*3/uL Baso # (Auto) (0.0-0.2) X10*3/uL Abs Immat Gran (auto) (0.00-0.03) X10*3/uL Absolute Neuts (auto) (2.0-8.3) x10*3/uL Absolute Nucleated RBC (0.0-0.012) X10*3/uL Nucleated RBC % (auto) (0.0-0.2) /100WBC Sodium 140 (135-145) mmol/L Potassium 4.2 (3.3-5.1) mmol/L Chloride 107 (96-108) mmol/L Carbon Dioxide 22 (22-29) mmol/L Anion Gap 15 (12-20) BUN 11 (9-16) mg/dL Creatinine 0.81 (0.5-1.4) mg/dL Estim Creat Clear Calc 86.1 Estimated GFR > 60 Random Glucose 181 H (60-115) mg/dL Calcium 9.0 (8.4-10.2) mg/dL Magnesium 2.1 (1.6-2.6) mg/dL Total Bilirubin 0.4 (0.0-1.0) mg/dL Direct Bilirubin < 0.2 (0.0-0.5) mg/dL AST 18 (5-31) U/L ALT 16 (0-31) U/L Alkaline Phosphatase 61 (39-117) U/L Troponin I High Sens (<3.5-17.0) ng/L Total Protein 7.6 (6.5-8.0) g/dL Albumin 4.1 (3.5-5.0) g/dL Urine Color Urine Appearance Urine pH (5.0-9.0) Ur Specific [place] (1.005-1.025) Urine Protein (Neg-Trace) mg/dL Urine Glucose (UA) (Negative) mg/dL Urine Ketones (Negative) mg/dL Urine Blood (Negative) Urine Nitrite (Negative) Ur Leukocyte Esterase (Negative) Urine RBC (0-2) /HPF Urine WBC (0-5) /HPF Ur Squamous Epith Cells (0-2) /HPF Urine Bacteria (None Seen) Hyaline Casts (0-2) /LPF COVID-19 (SHANNA) Negative (Negative) COVID-19 Clin Com See Note Influenza Type A (KRISTOPHER) Negative (Negative) Influenza Type B (KRISTOPHER) Negative (Negative) Influenza A & B Note See Note 05/23/22 05/23/22 05/23/22 Range/Units 17:55 17:55 18:18 WBC 7.2 (4.8-10.8) X10*3/uL RBC 4.36 (4.20-5.50) X10*6/uL Hgb 13.2 (12.0-16.0) g/dl Hct 37.4 (37.0-47.0) % MCV 85.8 (80.0-98.0) fL MCH 30.3 (27.0-33.0) pg MCHC 35.3 H (31.0-35.0) g/dl RDW 13.1 (11.0-16.0) % Plt Count 372 (160-400) X10*3/uL MPV 9.9 (9.4-12.3) fL Immature Gran % (Auto) 1.1 H (0.0-0.4) % Neut % (Auto) 85.1 H (45-73) % Lymph % (Auto) 11.6 L (20-40) % Cache % (Auto) 2.1 (2-11) % Eos % (Auto) 0.0 (0-4) % Baso % (Auto) 0.1 (0-2) % Lymph # (Auto) 0.8 L (1.2-4.9) X10*3/uL Cache # (Auto) 0.2 (0.1-1.2) X10*3/uL Eos # (Auto) 0.0 (0.0-0.4) X10*3/uL Baso # (Auto) 0.0 (0.0-0.2) X10*3/uL Abs Immat Gran (auto) 0.08 H (0.00-0.03) X10*3/uL Absolute Neuts (auto) 6.1 (2.0-8.3) x10*3/uL Absolute Nucleated RBC 0.000 (0.0-0.012) X10*3/uL Nucleated RBC % (auto) 0.0 (0.0-0.2) /100WBC Sodium (135-145) mmol/L Potassium (3.3-5.1) mmol/L Chloride (96-108) mmol/L Carbon Dioxide (22-29) mmol/L Anion Gap (12-20) BUN (9-16) mg/dL Creatinine (0.5-1.4) mg/dL Estim Creat Clear Calc Estimated GFR Random Glucose (60-115) mg/dL Calcium (8.4-10.2) mg/dL Magnesium (1.6-2.6) mg/dL Total Bilirubin (0.0-1.0) mg/dL Direct Bilirubin (0.0-0.5) mg/dL AST (5-31) U/L ALT (0-31) U/L Alkaline Phosphatase (39-117) U/L Troponin I High Sens < 3.5 (<3.5-17.0) ng/L Total Protein (6.5-8.0) g/dL Albumin (3.5-5.0) g/dL Urine Color Yellow Urine Appearance Clear Urine pH 8.5 (5.0-9.0) Ur Specific [place] 1.010 (1.005-1.025) Urine Protein Negative (Neg-Trace) mg/dL Urine Glucose (UA) 100 H (Negative) mg/dL Urine Ketones Negative (Negative) mg/dL Urine Blood Trace H (Negative) Urine Nitrite Negative (Negative) Ur Leukocyte Esterase Negative (Negative) Urine RBC 0-2 (0-2) /HPF Urine WBC 0-5 (0-5) /HPF Ur Squamous Epith Cells 0-2 (0-2) /HPF Urine Bacteria None Seen (None Seen) Hyaline Casts 0-2 (0-2) /LPF COVID-19 (SHANNA) (Negative) COVID-19 Clin Com Influenza Type A (KRISTOPHER) (Negative) Influenza Type B (KRISTOPHER) (Negative) Influenza A & B Note <Darrick Childers MD - Last Filed: 05/23/22 23:21> Discharge Plan Discharge Clinical Impression: Hypertension <RUBY Gan - Last Filed: 05/23/22 16:40> Patient Disposition: Home, Self-Care <RUBY Gan - Last Filed: 05/23/22 16:40> Instructions: Hypertension (ED) <RUBY Gan - Last Filed: 05/23/22 16:40> Additional Instructions: Decrease salt intake Take blood pressure medication as prescribed Normal blood pressure should be less than 135/85 and you have mild hypertension Follow-up with your PCP Disminuir la ingesta de alex [place] los medicamentos para la presi?n arterial seg?n lo prescrito La presi?n arterial normal debe ser inferior a 135/85 y tiene hipertensi?n leve Seguimiento con nelson PCP <RUBY Gan - Last Filed: 05/23/22 16:40> Prescriptions: New amlodipine 2.5 mg tablet 2.5 mg PO DAILY Qty: 30 0RF No Action nitrofurantoin monohyd/m-cryst [Macrobid] 100 mg capsule 100 mg PO Q12H 7 Days Qty: 14 0RF Rx Instructions: must administer with a meal/food phenazopyridine [Pyridium] 200 mg tablet 200 mg PO TID Qty: 6 0RF benzonatate 200 mg capsule 200 mg PO TID PRN (Reason: cough) Qty: 30 0RF prednisone 20 mg tablet 40 mg PO DAILY Qty: 10 0RF cefuroxime axetil 500 mg tablet 500 mg PO BID Qty: 20 0RF albuterol sulfate [ProAir HFA] 90 mcg/actuation HFA aerosol inhaler 2 puff inhalation Q4-6H PRN (Reason: shortness of breath or wheezing) Qty: 8.5 0RF <RUBY Gan - Last Filed: 05/23/22 16:40> Print Language: Trinidadian <RUBY Gan - Last Filed: 05/23/22 16:40>
--- NOTE | 2022-05-23 16:37 | ECG_ITS ---
Test Reason : weakness Blood Pressure : / mmHG Vent. Rate : 098 BPM Atrial Rate : 098 BPM P-R Int : 118 ms QRS Dur : 092 ms QT Int : 342 ms P-R-T Axes : 065 043 061 degrees QTc Int : 436 ms Normal sinus rhythm Minimal voltage criteria for LVH, may be normal variant ( Sokolow-Alonso ) Borderline ECG No previous ECGs available Referred By: Tia Kuhn Electronically Signed By:Triston Greene
[2022-05-23 18:00] LABS: MANUAL DIFF FLAG NO
[2022-05-23 18:08] VITALS: BP 146/88; PULSE 95; RESP 18; TEMP 36.3; O2SAT 97
[2022-05-23 18:13] LABS: Basophils Percent Auto 0.1 % (0-2); Hematocrit 37.4 % (37.0-47.0); Hemoglobin 13.2 g/dl (12.0-16.0); Imm Gran Abs Auto 0.08 X10*3/uL (0.00-0.03); Imm Gran Pct Auto 1.1 % (0.0-0.4); Lymphocytes Absolute Auto 0.8 X10*3/uL (1.2-4.9); Lymphocytes Percent Auto 11.6 % (20-40); Mean Corpuscular HGB Conc 35.3 g/dl (31.0-35.0); Mean Corpuscular Hemoglobin 30.3 pg (27.0-33.0); Mean Corpuscular Volume 85.8 fL (80.0-98.0); Mean Platelet Volume 9.9 fL (9.4-12.3); Monocytes Absolute Auto 0.2 X10*3/uL (0.1-1.2); Monocytes Percent Auto 2.1 % (2-11); Neutrophils Absolute Auto 6.1 x10*3/uL (2.0-8.3); Neutrophils Percent Auto 85.1 % (45-73); Platelet Count 372 X10*3/uL (160-400); Red Blood Count 4.36 X10*6/uL (4.20-5.50); Red Cell Distribution Width 13.1 % (11.0-16.0); White Blood Count 7.2 X10*3/uL (4.8-10.8)
[2022-05-23 18:16] LABS: Alanine Aminotransferase 16 U/L (0-31); Albumin Level 4.1 g/dL (3.5-5.0); Alkaline Phosphatase 61 U/L (39-117); Anion Gap 15 (12-20); Aspartate Amino Transferase 18 U/L (5-31); Bilirubin Direct < 0.2 mg/dL (0.0-0.5); Bilirubin Total 0.4 mg/dL (0.0-1.0); Blood Urea Nitrogen 11 mg/dL (9-16); Carbon Dioxide 22 mmol/L (22-29); Chloride 107 mmol/L (96-108); Creatinine Clr Calc Pharmacy 86.1; Estimated Glomerular Filt Rate > 60; Glucose Random 181 mg/dL (60-115); Magnesium 2.1 mg/dL (1.6-2.6); Potassium 4.2 mmol/L (3.3-5.1); Sodium 140 mmol/L (135-145); Total Protein 7.6 g/dL (6.5-8.0)
[2022-05-23 18:25] LABS: COVID-19 Test Negative (Negative); IDNOW Serial# 55D5AD1C; IDNOW Serial# 9DB6401D; Influenza A Negative (Negative); Influenza B2 Negative (Negative); Troponin-I High Sensitivity < 3.5 ng/L (<3.5-17.0)
[2022-05-23 18:30] LABS: Appearance Urine Clear; Color Urine Yellow; Glucose Urine UA 100 mg/dL (Negative); Leukocyte Esterase Urine Negative (Negative); Nitrite Urine Negative (Negative); PH 8.5 (5.0-9.0); UMIC TRIGGER UACC YES; Urine Blood Trace (Negative); Urine Ketones Negative (Negative); Urine Protein Negative (Neg-Trace)
[2022-05-23 18:32] LABS: Bacteria Urine None Seen (None Seen); Hyaline Casts Urine 0-2 /LPF (0-2); RBC Urine 0-2 /HPF (0-2); Squamous Epithelial Cell Urine 0-2 /HPF (0-2); WBC Urine 0-5 /HPF (0-5)
[2022-05-23 22:09] VITALS: BP 151/68; PULSE 94; RESP 16; O2SAT 97
[2022-05-23] MEDS: amLODIPine Besylate 2.5 MG TABLET PO (22:19)
[2022-05-23 23:03] VITALS: BP 156/81; PULSE 82; RESP 16; O2SAT 97
== END 2022-05-23 23:37 | disposition home or self-care (01) ==
PROVIDERS: Physician Assistant; Emergency Provider Internal Medicine
DX: I10 Essential (primary) hypertension (principal); R53.1 Weakness; Z20.822 Contact with and (suspected) exposure to COVID-19; R51.9 Headache, unspecified
CPT/HCPCS: 36415; 70450; 71045; 80048; 80076; 81001; 83735; 84484; 85025; 87502; 87635; 93005; 99284

== ENCOUNTER 2022-08-10 11:16 | Outpatient (REF) | payer OTHER, SELFPAY ==
--- NOTE | ~2022-08-10 | US_ITS ---
EXAMINATION: US PELVIS CLINICAL INFORMATION: Bleeding COMPARISON: None available. TECHNIQUE: Ultrasound of the pelvis is performed using both transabdominal and transvaginal transducers along with Doppler. Transvaginal imaging is performed due to inadequate visualization transabdominally. Exam is limited. FINDINGS: The uterus is anteverted and measures 8.7 x 4.2 x 3.9 cm in dimension. Endometrium does not appear thickened. There is complex hypoechoic fluid seen within the endometrial cavity. No focal uterine lesion. The ovaries are not seen. No ascites in the pelvis. US/US pelvic and transvaginal IMPRESSION: Limited exam. The endometrium does not appear thickened. Hypoechoic complex fluid seen within the endometrial cavity. Ovaries not seen.
== END 2022-08-10 11:17 | disposition home or self-care (01) ==
LOC: HO.US 11:16
PROVIDERS: Visit Provider Advanced Practice Midwife
DX: N93.0 Postcoital and contact bleeding (principal)
CPT/HCPCS: 76830; 76856

== ENCOUNTER 2022-10-26 09:20 | Outpatient (AMB) | payer OTHER, SELFPAY ==
--- NOTE | 2022-10-26 09:24 | MHC.OFFVIS ---
Intake Vital Signs 10/26/22 09:28 Height 5 ft 5 in Weight 167 lb BMI 27.8 BP 120/80 Intake Visit Reasons: Postcoital Bleeding/PCP Referral Drafter [employer] Required: Yes Drafter [employer] Engineering Language: Manager Web Name: Jordyn Ellsworth KIA Information Interpreted: non-clinical & clinical Building Maintenance Repairer: Building Maintenance Repairer Present (Jordyn) Accompanied by: Significant Other Allergies No Known Allergies Allergy (Verified 10/26/22 09:31) Is last menstrual period known: No (No menses since July) HPI HPI Comments History of Present Illness Details Presenting referred from PCP regarding an episode of postcoital bleeding that occurred few months ago, since then it resolved. In addition the patient has been experiencing amenorrhea last 3 months associated with hot flashes. Pelvic ultrasound done in 09/01 showed the following: The uterus is anteverted and measures 8.7 x 4.2 x 3.9 cm in dimension. Endometrium does not appear thickened.? There is complex hypoechoic fluid seen within the endometrial cavity. No focal uterine lesion. The ovaries are not seen. No ascites in the pelvis. Last co testing was many years ago, last mammogram was in 12/01 583, the recommendation was to repeat in 12 months [facility] Medical History (Updated 10/26/22 @ 09:57 by Jovanni Byrd MD) No known health problems Surgical History (Updated 10/26/22 @ 09:32 by KIA Costa) Hx of section Social History Alcohol intake: never Female Reproductive History Menstrual Age of Menarche: 10 Duration of menses: 3-5 days control method: none Total pregnancies: 3 Full term: 2 Number of Living Children: 2 Ab spontaneous: 1 Date of last pap smear: 10/07/20 (negative) Date of Mammogram: 11/08/21 Review of Systems Const All systems reviewed & are unremarkable except as noted in HPI and below Card Reports as per HPI Resp Reports as per HPI GI Reports as per HPI and Reports no additional complaints Reports as per HPI Physical Exam Vital Signs: Last Vital Signs BP 120/80 10/26/22 09:28 BMI result Body Mass Index 27.8 Const General: cooperative, healthy appearing and comfortable Chest Chest palpation & inspection: normal inspection of the chest and normal palpation of entire chest wall Breast/axilla inspection: normal inspection of the breasts and normal inspection of the axillae Breast/axilla palpation: normal palpation of the breasts, normal palpation of the axillae and no axillary lymphadenopathy Resp Effort & Inspection: normal respiratory effort Auscultation: clear to auscultation bilaterally Percussion: percussion normal Cardio Palpation: normal PMI Rate: regular rate Rhythm: regular rhythm Heart sounds: no murmurs and no rubs Peripheral pulses: Peripheral pulses 2+ throughout GI Inspection: Yes normal to inspection Palpation (GI): Soft to palpation, nontender, no guarding, not rigid and No hepatosplenomegaly present Percussion: Yes normal to percussion Auscultation: normal bowel sounds Rectal Exam - Female: deferred General: Yes bladder normal to palpation External Female Exam: No lesion Speculum Exam - Vagina: normal appearance of the vagina, normal palpation, normal vaginal discharge and not erythematous Speculum Exam - Cervix: normal appearance of the cervix, normal palpation and Other cervical findings present (Small endocervical polyp) Bimanual exam- vagina & uterus: normal bimanual exam, normal palpation, uterine size normal, bladder normal to palpation, consistency normal and normal palpation Bimanual Exam- Adnexa, other: normal adnexae, no masses and no tenderness Office Procedures [employer] S[employer]IOR OFFICER Biopsy Before the procedure was started, discussed with the patient the procedure technique, alternatives & all the risks associated with the procedure including but not limited to: bleeding , infection, uterine perforation, injury to bladder, vessels, bowels, possible need for transfusion with all its risks, and others. All questions were answered, the patient verbalized understanding and signed the consent. Urine test done in the office was negative Using a long Allie Clamp the endocervical polyp was grasped and twisted around till it came off, hemostasis was secured using pressure. The patient tolerated the procedure well. Instructions were given to the patient to call if bleeding, temp>100.4 occur. The patient verbalized understanding and agreed with the plan. This note was generated with a voice recognition program. Some errors may have been overlooked during the review of this note. Sometimes these errors may affect the content or meaning of a given sentence. 53151-Tyoffs of Cervix Procedure code (CPT) selection complete Results AMB Test Urine AMB Test Urine Negative Last Edit by KIA Costa on 10/26/22 09:45 AMB Urinalysis, Automated UA Leukoctes 0 Soraida/uL Last Edit by Gonsalo Albarrandonald RMA on 10/26/22 09:59 UA Nitrite Negative Last Edit by Gonsalo Albarrandro, RMA on 10/26/22 09:59 UA Urobilinogen 0 mg/dL Last Edit by Gonsalo Albarrandro, RMA on 10/26/22 09:59 UA Protein 0 mg/dL Last Edit by Rupalbello Job, RMA on 10/26/22 09:59 UA pH 7.5 Last Edit by Gonsalo Albarrandro, RMA on 10/26/22 09:59 UA Blood 0 Mihai/uL Last Edit by Gonsalo Albarrandro, A on 10/26/22 09:59 UA Specific [place] 1.010 Last Edit by Gonsalo Albarrandonald A on 10/26/22 09:59 UA Ketone Negative Last Edit by Gonsalo Job, A on 10/26/22 09:59 UA Bilirubin 0 mg/dL Last Edit by Gonsalo Albarrandonald RMA on 10/26/22 09:59 UA Glucose 0 mg/dL Last Edit by Rupalbello Job, A on 10/26/22 09:59 Results Reviewed Results Reviewed: Laboratory Last Values Tst Clinic Negative 10/26/22 09:44 Assessment & Plan Assessment & Plan (1) Postcoital bleeding: Comment: With endometrial echogenic fluid by ultrasound Code(s): N93.0 - Postcoital and contact bleeding Plan: GC and chlamydia taken, co testing done, recommended ECC was EMB next visit rule out endometrial/endocervical pathology. Instruction given to patient to schedule a 2 week appointment for ECC/EMB (2) Amenorrhea: Code(s): N91.2 - Amenorrhea, unspecified Plan: UPT done in the office was negative, TSH, prolactin, hCG, FSH/LH ordered, instructions given the patient to schedule a follow-up appointment. (3) Endocervical polyp: Code(s): N84.1 - Polyp of cervix uteri Plan: Discussed with the patient the finding on pelvic exam small endocervical polyp, polypectomy done, see procedure note. Orders: Orders AMB HCG Urine Test Today Z32.02 - Encounter for test, result negative AMB Urinalysis Automated Today N91.2 - Amenorrhea, unspecified AMB [employer] S[employer]IOR OFFICER Biopsy Today N84.1 - Polyp of cervix uteri MM screening mammo BI Today Z12.31 - Encounter for screening mammogram for malignant neoplasm of breast Coding Level of Care Code New Pt Level 3 (30464) Diagnoses Postcoital bleeding N93.0 Amenorrhea N91.2 Endocervical polyp N84.1 CPT Codes AIR [employer]CE S[employer]IOR OFFICER Biopsy - CPT: 01740-Ogtqpd of Cervix ([id number])
[2022-10-26 09:28] VITALS: BP 120/80; BMI 27.8
== END 2022-10-26 10:01 | disposition home or self-care (01) ==
LOC: HO.HWS 09:21
PROVIDERS: PCP Registered Nurse; Visit Provider Obstetrics & Gynecology
DX: N93.0 Postcoital and contact bleeding (principal); N91.2 Amenorrhea, unspecified; N84.1 Polyp of cervix uteri; Z32.02 Encounter for pregnancy test, result negative
CPT/HCPCS: 57500; 99203

== ENCOUNTER 2022-10-26 09:20 | Outpatient (REF) | payer OTHER, SELFPAY ==
[2022-10-30 20:34] LABS: HPV mRNA E6/E7 rflx Not Detected (Not Detected)
== END 2022-10-26 09:21 | disposition home or self-care (01) ==
LOC: HO.LNP 09:20
PROVIDERS: PCP Registered Nurse; Visit Provider Obstetrics & Gynecology
DX: Z12.4 Encounter for screening for malignant neoplasm of cervix (principal); Z11.51 Encounter for screening for human papillomavirus (HPV); N93.0 Postcoital and contact bleeding; N92.1 Excessive and frequent menstruation with irregular cycle; N84.1 Polyp of cervix uteri
CPT/HCPCS: 57500; 81003; 81025; 87624; 88142; 88305; 99202

== ENCOUNTER 2022-10-26 10:20 | Outpatient (REF) | payer OTHER, SELFPAY ==
[2022-10-26 12:39] LABS: HCG Quantitative < 2 mIU/mL; TSH reflex Free T4 1.24 uIU/mL (0.32-4.0)
[2022-10-26 16:23] LABS: CT PCR NOT DETECTED (Not Detect.); NG PCR NOT DETECTED (Not Detect.)
[2022-10-27 08:08] LABS: Follicle Stimulating Hormone 9.4 mIU/mL; Lutenizing Hormone 6.3 mIU/mL; Prolactin 6.8 ng/mL
== END 2022-10-26 10:21 | disposition home or self-care (01) ==
LOC: HO.LAB 10:20
PROVIDERS: PCP Physician Assistant; Visit Provider Obstetrics & Gynecology
DX: N91.2 Amenorrhea, unspecified (principal); N84.1 Polyp of cervix uteri; N93.0 Postcoital and contact bleeding
CPT/HCPCS: 0353U; 36415; 83001; 83002; 84146; 84443; 84702

== ENCOUNTER → 2022-11-15 09:30 | Outpatient (BNV) | payer OTHER, SELFPAY | PROVIDERS: Absent Provider Obstetrics & Gynecology; PCP Registered Nurse; Visit Provider Radiology Diagnostic Radiology | DX: N63.12 Unspecified lump in the right breast, upper inner quadrant (principal) | CPT/HCPCS: 77062; 77066 ==

== ENCOUNTER 2022-11-15 09:40 | Outpatient (REF) | payer OTHER, SELFPAY ==
--- NOTE | ~2022-11-15 | MM_ITS ---
EXAMINATION: MM DIAGNOSTIC DIGITAL BREAST TOMOSYNTHESIS, BILATERAL CLINICAL INFORMATION: 6 month follow-up for right breast oval nodule, 12:30 axis, middle one third, seen on prior studies and probably benign. This has been followed since 10/27/2020, and today's exam will establish two-year stability. Patient also due for bilateral screening. COMPARISON: Mammography: 11/08/2021, 05/09/2021, 10/27/2020. TECHNIQUE: Digital breast tomosynthesis is performed in both the craniocaudal and mediolateral oblique views along with computer-aided detection (CAD). Synthesized 2D images are generated from the tomosynthesis. FINDINGS: The breasts are heterogeneously dense, which may obscure small masses (ACR BI-RADS breast composition Category c). In the 12:30 o'clock position right breast, seen both on the CC and MLO projections middle one third, is a circumscribed unchanged 7 mm nodule which previously did not have ultrasound correlate. This is unchanged from multiple prior exams and establishes two-year stability, indicating the lesion is benign. No further follow-up warranted. There are otherwise scattered bilateral parenchymal calcifications without suspicious grouping or pleomorphism. No developing mass, architectural distortion, or other suspicious abnormality. No skin abnormalities. No axillary pathology. MM/MM tomosynthesis diagnostic BI IMPRESSION: There are no significant changes from prior study. Stable 7 mm circumscribed nodule 12:30 o'clock axis right breast middle one third. This has been stable over 2 years and is considered benign. No further follow-up recommended. Otherwise, no additional findings suspicious for malignancy. Stable benign findings. Recommend the patient return to routine annual screening. ASSESSMENT: BI-RADS BI-RADS 2 - Benign Findings RECOMMENDATION: 1 year F/U Results were provided to the patient at time of visit by the technologist. This patient's information was entered into a reminder system with a target due date for their next mammogram.
== END 2022-11-15 09:41 | disposition home or self-care (01) ==
LOC: HO.MAMMO 09:40
PROVIDERS: Absent Provider Obstetrics & Gynecology; PCP Registered Nurse; Visit Provider Registered Nurse
DX: N63.12 Unspecified lump in the right breast, upper inner quadrant (principal)
CPT/HCPCS: 77062; 77066

== ENCOUNTER 2023-06-19 08:03 | Outpatient (REF) | payer OTHER, SELFPAY ==
--- NOTE | ~2023-06-19 | XR_ITS ---
EXAMINATION: XR HAND, RIGHT CLINICAL INFORMATION: Pain at distal third metacarpal of right hand after fall while COMPARISON: None available. TECHNIQUE: PA, lateral, and oblique views of the right hand. FINDINGS: The bones and soft tissues are normal. No fracture. Alignment is anatomic. Joint spaces are maintained. No erosions or soft tissue calcifications. XR/XR hand RT min 3V IMPRESSION: Normal right hand.
[2023-06-19 08:56] LABS: Basophils Percent Auto 0.7 % (0-2); Eosinophils Absolute Auto 0.1 X10*3/uL (0.0-0.4); Eosinophils Percent Auto 2.6 % (0-4); Hematocrit 34.4 % (37.0-47.0); Hemoglobin 11.5 g/dl (12.0-16.0); Lymphocytes Absolute Auto 1.4 X10*3/uL (1.2-4.9); Lymphocytes Percent Auto 50.9 % (20-40); MANUAL DIFF FLAG SCAN; Mean Corpuscular HGB Conc 33.4 g/dl (31.0-35.0); Mean Corpuscular Hemoglobin 29.3 pg (27.0-33.0); Mean Corpuscular Volume 87.8 fL (80.0-98.0); Mean Platelet Volume 9.8 fL (9.4-12.3); Monocytes Absolute Auto 0.4 X10*3/uL (0.1-1.2); Monocytes Percent Auto 13.1 % (2-11); Neutrophils Absolute Auto 0.9 x10*3/uL (2.0-8.3); Neutrophils Percent Auto 32.7 % (45-73); Platelet Count 290 X10*3/uL (160-400); Red Blood Count 3.92 X10*6/uL (4.20-5.50); Red Cell Distribution Width 14.3 % (11.0-16.0); SCAN SMEAR FLAG 1; White Blood Count 2.7 X10*3/uL (4.8-10.8)
[2023-06-19 09:00] LABS: Estimated Average Glucose 108 mg/dL; Hemoglobin A1c % 5.4 % (<6.0)
[2023-06-19 09:34] LABS: Creatinine Urine 74.85 mg/dL; Microalbum/Creatinine Ratio Ur 14.6 ug/mg cr (<30)
[2023-06-19 09:46] LABS: Alanine Aminotransferase 13 U/L (0-31); Albumin Level 3.9 g/dL (3.5-5.0); Alkaline Phosphatase 87 U/L (39-117); Anion Gap 10 (12-20); Aspartate Amino Transferase 16 U/L (5-31); Bilirubin Total 0.6 mg/dL (0.0-1.0); Blood Urea Nitrogen 14 mg/dL (9-16); Calcium 8.8 mg/dL (8.4-10.2); Carbon Dioxide 27 mmol/L (22-29); Chloride 112 mmol/L (96-108); Cholesterol 208 mg/dL (<200); Estimated Glomerular Filt Rate > 60; Glucose Random 97 mg/dL (60-115); HDL Cholesterol 67 mg/dL (>40); LDL Cholesterol Calculated 129 mg/dL (<100); Sodium 145 mmol/L (135-145); Triglycerides 60 mg/dL (<150)
[2023-06-19 10:03] LABS: HIV AB/AG Nonreactive (Nonreactive); HIV Num 1 0.04 S/CO (0.00-0.99)
[2023-06-19 11:08] LABS: SLIDE REVIEW VERIFIED
[2023-06-20 10:23] LABS: RPR Rapid Plasma Reagin NON-REACTIVE (NON-REACTIVE)
[2023-06-21 13:48] LABS: HCV Log PCR <1.18 NOT DETECTED Log IU/mL (NOT DETECTED); HepC Viral Load <15 NOT DETECTED IU/mL (NOT DETECTED)
== END 2023-06-19 08:04 | disposition home or self-care (01) ==
LOC: HO.XRAY 08:03
PROVIDERS: PCP Registered Nurse; Visit Provider Registered Nurse
DX: Z00.00 Encounter for general adult medical examination without abnormal findings (principal); M79.641 Pain in right hand; I10 Essential (primary) hypertension
CPT/HCPCS: 36415; 73130; 80053; 80061; 82043; 82570; 83036; 84443; 85025; 86592; 87389; 87522

== ENCOUNTER 2023-07-02 07:34 | Outpatient (REF) | payer OTHER, SELFPAY ==
[2023-07-02 07:40] LABS: MANUAL DIFF FLAG NO
[2023-07-02 08:01] LABS: Basophils Percent Auto 0.6 % (0-2); Eosinophils Absolute Auto 0.1 X10*3/uL (0.0-0.4); Eosinophils Percent Auto 2.3 % (0-4); Hematocrit 35.8 % (37.0-47.0); Hemoglobin 12.1 g/dl (12.0-16.0); Imm Gran Abs Auto 0.01 X10*3/uL (0.00-0.03); Imm Gran Pct Auto 0.3 % (0.0-0.4); Immature Retic Fraction 12.6 % (3.0-15.9); Lymphocytes Absolute Auto 1.5 X10*3/uL (1.2-4.9); Lymphocytes Percent Auto 41.7 % (20-40); Mean Corpuscular HGB Conc 33.8 g/dl (31.0-35.0); Mean Corpuscular Hemoglobin 29.5 pg (27.0-33.0); Mean Corpuscular Volume 87.3 fL (80.0-98.0); Mean Platelet Volume 9.7 fL (9.4-12.3); Monocytes Absolute Auto 0.5 X10*3/uL (0.1-1.2); Monocytes Percent Auto 14.1 % (2-11); Neutrophils Absolute Auto 1.4 x10*3/uL (2.0-8.3); Platelet Count 282 X10*3/uL (160-400); Red Cell Distribution Width 14.5 % (11.0-16.0); Retic HGB Equivalent 31.2 pg (30.0-35.0); Reticulocyte Percent 1.4 % (0.5-1.8); Reticulocytes Absolute 0.058 X10*6/uL (0.026-0.095); White Blood Count 3.5 X10*3/uL (4.8-10.8)
== END 2023-07-02 07:35 | disposition home or self-care (01) ==
LOC: HO.LAB 07:34
PROVIDERS: PCP Registered Nurse; Visit Provider Registered Nurse
DX: D72.819 Decreased white blood cell count, unspecified (principal)
CPT/HCPCS: 36415; 85025; 85045

== ENCOUNTER 2023-07-09 10:20 | Emergency (ER) | payer OTHER, SELFPAY ==
[2023-07-09 10:31] VITALS: BP 168/75; PULSE 81; RESP 16; TEMP 37; O2SAT 98; BMI 27.0
[2023-07-09 11:04] LABS: MANUAL DIFF FLAG NO
[2023-07-09 11:08] LABS: Basophils Percent Auto 0.4 % (0-2); Eosinophils Percent Auto 0.6 % (0-4); Hematocrit 36.1 % (37.0-47.0); Hemoglobin 12.4 g/dl (12.0-16.0); Imm Gran Abs Auto 0.01 X10*3/uL (0.00-0.03); Imm Gran Pct Auto 0.2 % (0.0-0.4); Lymphocytes Absolute Auto 1.4 X10*3/uL (1.2-4.9); Lymphocytes Percent Auto 26.6 % (20-40); Mean Corpuscular HGB Conc 34.3 g/dl (31.0-35.0); Mean Corpuscular Volume 87.4 fL (80.0-98.0); Mean Platelet Volume 9.4 fL (9.4-12.3); Monocytes Absolute Auto 0.6 X10*3/uL (0.1-1.2); Monocytes Percent Auto 11.4 % (2-11); Neutrophils Absolute Auto 3.2 x10*3/uL (2.0-8.3); Neutrophils Percent Auto 60.8 % (45-73); Platelet Count 266 X10*3/uL (160-400); Red Blood Count 4.13 X10*6/uL (4.20-5.50); Red Cell Distribution Width 14.6 % (11.0-16.0); White Blood Count 5.3 X10*3/uL (4.8-10.8)
[2023-07-09 11:31] LABS: Alanine Aminotransferase 14 U/L (0-31); Albumin Level 4.1 g/dL (3.5-5.0); Alkaline Phosphatase 106 U/L (39-117); Anion Gap 9 (12-20); Aspartate Amino Transferase 19 U/L (5-31); Bilirubin Total 0.8 mg/dL (0.0-1.0); Blood Urea Nitrogen 9 mg/dL (9-16); Calcium 9.4 mg/dL (8.4-10.2); Carbon Dioxide 30 mmol/L (22-29); Chloride 106 mmol/L (96-108); Creatinine Clr Calc Pharmacy 102.8; Estimated Glomerular Filt Rate > 60; Glucose Random 102 mg/dL (60-115); Potassium 4.5 mmol/L (3.3-5.1); Sodium 140 mmol/L (135-145); Total Protein 7.8 g/dL (6.5-8.0)
[2023-07-09 13:55] LABS: HCG Quantitative < 2 mIU/mL
[2023-07-09 14:21] VITALS: BP 156/76; PULSE 84; RESP 16; TEMP 36; O2SAT 99
--- NOTE | 2023-07-09 14:21 | ED_ITS ---
HPI - Female Genitourinary General Chief complaint: Urogenital-Female Stated complaint: Flank pain sent by urgent care Time Seen by Provider: 07/09/23 17:40 Source: patient Mode of arrival: ambulatory History of Present Illness HPI Narrative: 48-year-old female without significant past medical history reports that she has been having left flank pain with subjective fevers, chills and nausea for 2 days but denies any history of kidney stones and denies any urinary pain/burning/frequency. Related Data Previous Rx's ?Medication ?Instructions ?Recorded albuterol sulfate 90 mcg/actuation 2 puff inhalation Q4-6H PRN 05/18/22 aerosol inhaler (ProAir HFA) shortness of breath or wheezing #8.5 grams benzonatate 200 mg capsule 200 mg PO TID PRN cough #30 caps 05/18/22 cefuroxime axetil 500 mg tablet 500 mg PO BID #20 tabs 05/18/22 amlodipine 2.5 mg tablet 2.5 mg PO DAILY #30 tabs 05/23/22 cefdinir 300 mg capsule 300 mg PO BID 7 days #14 caps 07/09/23 ondansetron 4 mg disintegrating 4 mg PO Q8H PRN nausea and 07/09/23 tablet vomiting 4 days #7 tabs Allergies Allergy/AdvReac Type Severity Reaction Status Date / Time No Known Allergies Allergy Verified 07/09/23 10:34 Review of Systems 2 Review of Systems: Pertinent positives and negatives as stated in HPI [facility] Past Medical History Source: nursing notes reviewed Medical History No known health problems Surgical History Hx of section Social History Social History Alcohol intake: never Smoked in Last 30 Days: No Use of substances other than those prescribed or required for medical reasons: No Advance Directives: No Advance Directives Information Provided: Yes Do you have a plan to hurt others: No Plan Patient : No Physical Exam 2 Vital Signs: Vital Signs: Last Vital Signs Temp 98.5 F 07/09/23 19:02 Pulse 88 07/09/23 19:02 Resp 18 07/09/23 19:02 BP 180/75 H 07/09/23 19:02 Pulse Ox 98 07/09/23 19:02 O2 Del Method Room Air 07/09/23 19:02 BMI result Body Mass Index 27.0 VITAL SIGNS: Reviewed. GENERAL: Well developed, well nourished, in no acute distress. HEAD: Normocephalic/atraumatic EYES: PERRLA, EOMI LUNGS: Normal breath sounds. No adventitious sounds or accessory muscle use. SpO2<98> CARDIOVASCULAR: Regular rate and rhythm without noted murmurs ABDOMEN: Soft, non-tender, non-distended with bowel sounds, CVA tenderness on the left MUSCULOSKELETAL: No tenderness, deformities, or effusions noted on gross inspection. EXTREMITIES: No cyanosis, clubbing or edema. SKIN: Inspection of the skin reveals no rashes NEUROLOGIC: Alert and oriented x 4. Strength and sensation to light touch were grossly intact x 4. Course Course Course Narrative: This is an RME: Additional HPI, ROS, PE not included below will be deferred to primary provider. 48 year old female hx of amenorrhea, postcital bleeding, presents w/ left sided flank pain, fevers, chills, nausea and clooudy dark urine X 2 days. States last time this happened it was kidney inflammation . She does not have a history of kidney stones. No sick contacts. Denies diarrhea, cp, sob, headache, vision changes, dizizness, weakness. Plan- labs, UA Medications Administered Discontinued Medications Generic Name Dose Route Start Last Admin Trade Name Freq PRN Reason Stop Dose Admin Acetaminophen 975 mg 07/09/23 18:21 07/09/23 18:28 Acetaminophen 325 Mg Tablet PO 07/09/23 18:22 975 mg ONCE ONE Administration Cefuroxime Axetil 500 mg 07/09/23 18:37 07/09/23 18:53 Cefuroxime Axetil 500 Mg Tablet PO 07/09/23 18:38 500 mg ONCE ONE Administration Ibuprofen 400 mg 07/09/23 18:21 07/09/23 18:28 Ibuprofen 400 Mg Tablet PO 07/09/23 18:22 400 mg ONCE ONE Administration Ondansetron HCl 4 mg 07/09/23 18:21 07/09/23 18:29 Ondansetron Odt 4 Mg Tab.Rapdis TRANSLINGU 07/09/23 18:22 4 mg ONCE ONE Administration Medical Decision Making Medical Decision Making [facility] Narrative: 48-year-old female with history and clinical presentation, DDX: Pyelonephritis, renal colic, UTI, musculoskeletal. I reviewed all investigations and hematologic indices are negative for leukocytosis/left shift/anemia/thrombocytopenia. Chemistry indices negative for ZION/electrolyte or liver enzyme derangements. Urinalysis grossly positive for nitrites/leukocyte esterase and WBCs as well as bacteria. Beta hCG is undetectable. My interpretation is that patient has pyelonephritis but is tolerating oral intake, she received combination analgesics as well as initial antibiotics and is otherwise discharged home. Differential Diagnosis Differential Diagnoses: The differential diagnosis associated with the presentation includes Please see the discussion above Admission/Observation Consideration of admission/observation: Escalation of care including admission/observation considered Please see the discussion above Lab Data [facility] Lab Attestation statement: I reviewed the patient's lab results. Please see the discussion above 07/09/23 10:59 07/09/23 10:59 Labs: Lab Results 07/09/23 07/09/23 Range/Units 10:59 17:52 WBC 5.3 (4.8-10.8) X10*3/uL RBC 4.13 L (4.20-5.50) X10*6/uL Hgb 12.4 (12.0-16.0) g/dl Hct 36.1 L (37.0-47.0) % MCV 87.4 (80.0-98.0) fL MCH 30.0 (27.0-33.0) pg MCHC 34.3 (31.0-35.0) g/dl RDW 14.6 (11.0-16.0) % Plt Count 266 (160-400) X10*3/uL MPV 9.4 (9.4-12.3) fL Immature Gran % (Auto) 0.2 (0.0-0.4) % Neut % (Auto) 60.8 (45-73) % Lymph % (Auto) 26.6 (20-40) % [place] % (Auto) 11.4 H (2-11) % Eos % (Auto) 0.6 (0-4) % Baso % (Auto) 0.4 (0-2) % Lymph # (Auto) 1.4 (1.2-4.9) X10*3/uL [place] # (Auto) 0.6 (0.1-1.2) X10*3/uL Eos # (Auto) 0.0 (0.0-0.4) X10*3/uL Baso # (Auto) 0.0 (0.0-0.2) X10*3/uL Abs Immat Gran (auto) 0.01 (0.00-0.03) X10*3/uL Absolute Neuts (auto) 3.2 (2.0-8.3) x10*3/uL Absolute Nucleated RBC 0.000 (0.0-0.012) X10*3/uL Nucleated RBC % (auto) 0.0 (0.0-0.2) /100WBC Sodium 140 (135-145) mmol/L Potassium 4.5 (3.3-5.1) mmol/L Chloride 106 (96-108) mmol/L Carbon Dioxide 30 H (22-29) mmol/L Anion Gap 9 L (12-20) BUN 9 (9-16) mg/dL Creatinine 0.68 (0.5-1.4) mg/dL Estim Creat Clear Calc 102.8 Estimated GFR > 60 Random Glucose 102 (60-115) mg/dL Calcium 9.4 D (8.4-10.2) mg/dL Total Bilirubin 0.8 (0.0-1.0) mg/dL AST 19 (5-31) U/L ALT 14 (0-31) U/L Alkaline Phosphatase 106 (39-117) U/L Total Protein 7.8 (6.5-8.0) g/dL Albumin 4.1 (3.5-5.0) g/dL Beta HCG, Quant < 2 mIU/mL Urine Color Yellow Urine Appearance Clear Urine pH 7.5 (5.0-9.0) Ur Specific [place] 1.010 (1.005-1.025) Urine Protein Negative (Neg-Trace) mg/dL Urine Glucose (UA) Negative (Negative) mg/dL Urine Ketones Negative (Negative) mg/dL Urine Blood Trace H (Negative) Urine Nitrite Positive H (Negative) Ur Leukocyte Esterase Small (1+) H (Negative) Urine RBC 6-10 H (0-2) /HPF Urine WBC 11-20 H (0-5) /HPF Ur Squamous Epith Cells 0-2 (0-2) /HPF Urine Bacteria 4+ (None Seen) Hyaline Casts 0-2 (0-2) /LPF External Record Review External record reviewed: Outpatient record and Prior outpatient labs Critical Care Time Critical Care Time Critical Care Time: Yes Total Critical Care Time: 30 Attestation: I personally attest to this time spent taking care of the patient. Discharge Plan Discharge Clinical Impression: Pyelonephritis Patient Disposition: Home, Self-Care Instructions: Kidney Infection (ED) Additional Instructions: 1. Utilize Tylenol/ibuprofen as needed for pain control. 2. Complete the entire course of antibiotics. Return to the ER for any worsening symptoms. Prescriptions: New cefdinir 300 mg capsule 300 mg PO BID 7 Days Qty: 14 0RF ondansetron 4 mg tablet,disintegrating 4 mg PO Q8H PRN (Reason: nausea and vomiting) 4 Days Qty: 7 0RF No Action amlodipine 2.5 mg tablet 2.5 mg PO DAILY Qty: 30 0RF benzonatate 200 mg capsule 200 mg PO TID PRN (Reason: cough) Qty: 30 0RF cefuroxime axetil 500 mg tablet 500 mg PO BID Qty: 20 0RF albuterol sulfate [ProAir HFA] 90 mcg/actuation HFA aerosol inhaler 2 puff inhalation Q4-6H PRN (Reason: shortness of breath or wheezing) Qty: 8.5 0RF Referrals: Shu Hurtado FNP [Primary Care Provider] - Stand Alone Forms: Work/School Release Interventions: ED Discharge Assessment Last Done: 07/09/23 19:02 Discharge Date/Time: 07/09/23 19:03 Print Language: Dutch
[2023-07-09 17:57] VITALS: BP 180/75; PULSE 88; RESP 18; TEMP 36.9; O2SAT 96
[2023-07-09 18:23] LABS: Appearance Urine Clear; Color Urine Yellow; Glucose Urine UA Negative (Negative); Leukocyte Esterase Urine Small (1+) (Negative); Nitrite Urine Positive (Negative); PH 7.5 (5.0-9.0); UMIC TRIGGER UACC YES; Urine Blood Trace (Negative); Urine Ketones Negative (Negative); Urine Protein Negative (Neg-Trace)
[2023-07-09 18:28] LABS: Bacteria Urine 4+ (None Seen); Hyaline Casts Urine 0-2 /LPF (0-2); Squamous Epithelial Cell Urine 0-2 /HPF (0-2); UACC Culture Trigger YES
[2023-07-09] MEDS: Acetaminophen 325 MG TABLET 975 MG PO (18:28)
[2023-07-09] MEDS: Ibuprofen 400 MG TABLET PO (18:28)
[2023-07-09] MEDS: Ondansetron ODT 4 MG TAB.RAPDIS TRANSLINGU (18:29)
[2023-07-09] MEDS: cefuroxime axetiL 500 MG TABLET PO (18:53)
[2023-07-09 19:02] VITALS: BP 180/75; PULSE 88; RESP 18; TEMP 36.9; O2SAT 98
== END 2023-07-09 19:03 | disposition home or self-care (01) ==
PROVIDERS: Physician Assistant; Emergency Provider Student in an Organized Health Care Education/Training Program; PCP Registered Nurse
DX: N12 Tubulo-interstitial nephritis, not specified as acute or chronic (principal); R10.9 Unspecified abdominal pain; R50.9 Fever, unspecified; R11.0 Nausea; Z79.899 Other long term (current) drug therapy
CPT/HCPCS: 36415; 80053; 81001; 84702; 85025; 87086; 87088; 87186; 99283; 99284

== ENCOUNTER 2023-07-12 09:45 | Outpatient (REF) | payer OTHER, SELFPAY | END 2023-07-12 09:46 | disposition home or self-care (01) | LOC: HO.LAB 09:45 | PROVIDERS: PCP Registered Nurse; Visit Provider Registered Nurse | DX: D72.819 Decreased white blood cell count, unspecified (principal) | CPT/HCPCS: 36415 ==

== ENCOUNTER → 2023-08-15 07:54 | Outpatient (BNV) | payer OTHER, SELFPAY | PROVIDERS: PCP Registered Nurse; Visit Provider Internal Medicine | DX: D72.819 Decreased white blood cell count, unspecified (principal) | CPT/HCPCS: 99204 ==

== ENCOUNTER 2023-10-23 11:18 | Outpatient (REF) | payer OTHER, SELFPAY | END 2023-10-23 11:19 | disposition home or self-care (01) | LOC: HO.CHCLNP 11:18 | PROVIDERS: Visit Provider Registered Nurse | DX: R14.0 Abdominal distension (gaseous) (principal) | CPT/HCPCS: 87338 ==

== ENCOUNTER 2023-11-19 08:52 | Outpatient (REF) | payer OTHER, SELFPAY ==
--- NOTE | ~2023-11-19 | MM_ITS ---
EXAMINATION: MM SCREENING DIGITAL BREAST TOMOSYNTHESIS, BILATERAL CLINICAL INFORMATION: Screening. Asymptomatic. COMPARISON: Mammography: Comparison is made with available priors TECHNIQUE: Digital breast mammography with tomosynthesis is performed in both the craniocaudal and mediolateral oblique views along with computer-aided detection (CAD). FINDINGS: The breasts are heterogeneously dense, which may obscure small masses (ACR BI-RADS breast composition Category c). There are no significant masses, abnormal calcifications, or other abnormalities. MM/MM tomosynthesis screening BI IMPRESSION: No mammographic evidence of malignancy. ASSESSMENT: BI-RADS BI-RADS 1 - Negative RECOMMENDATION: Routine annual mammography screening. 1 year F/U This examination should not preclude the clinical evaluation of a suspicious palpable abnormality. This patient's information was entered into a reminder system with a target due date for their next mammogram. Electronically signed by: Bea Castellano DO 12/03/2023 05:52 PM EDT
== END 2023-11-19 08:53 | disposition home or self-care (01) ==
LOC: HO.MAMMO 08:52
PROVIDERS: PCP Registered Nurse; Visit Provider Registered Nurse
DX: Z12.31 Encounter for screening mammogram for malignant neoplasm of breast (principal)
CPT/HCPCS: 77063; 77067

== ENCOUNTER → 2023-11-19 09:15 | Outpatient (BNV) | payer OTHER, SELFPAY | PROVIDERS: PCP Registered Nurse; Visit Provider Internal Medicine | DX: Z12.31 Encounter for screening mammogram for malignant neoplasm of breast (principal) | CPT/HCPCS: 77063; 77067 ==

== ENCOUNTER 2023-12-20 08:58 | Outpatient (REF) | payer OTHER, SELFPAY | END 2023-12-20 08:59 | disposition home or self-care (01) | LOC: HO.CHCLNP 08:58 | PROVIDERS: Visit Provider Registered Nurse | DX: A04.8 Other specified bacterial intestinal infections (principal) | CPT/HCPCS: 87338 ==

== ENCOUNTER 2024-02-28 10:38 | Outpatient (REF) | payer OTHER, SELFPAY ==
[2024-02-28 14:26] LABS: MANUAL DIFF FLAG NO
[2024-02-28 14:38] LABS: Basophils Percent Auto 0.9 % (0-2); Eosinophils Absolute Auto 0.1 X10*3/uL (0.0-0.4); Eosinophils Percent Auto 2.2 % (0-4); Hematocrit 36.9 % (37.0-47.0); Hemoglobin 12.4 g/dl (12.0-16.0); Imm Gran Abs Auto 0.01 X10*3/uL (0.00-0.03); Imm Gran Pct Auto 0.3 % (0.0-0.4); Lymphocytes Absolute Auto 1.4 X10*3/uL (1.2-4.9); Lymphocytes Percent Auto 44.8 % (20-40); Mean Corpuscular HGB Conc 33.6 g/dl (31.0-35.0); Mean Corpuscular Volume 89.3 fL (80.0-98.0); Mean Platelet Volume 10.7 fL (9.4-12.3); Monocytes Absolute Auto 0.4 X10*3/uL (0.1-1.2); Monocytes Percent Auto 12.6 % (2-11); Neutrophils Absolute Auto 1.2 x10*3/uL (2.0-8.3); Neutrophils Percent Auto 39.2 % (45-73); Platelet Count 293 X10*3/uL (160-400); Red Blood Count 4.13 X10*6/uL (4.20-5.50); Red Cell Distribution Width 14.5 % (11.0-16.0); White Blood Count 3.2 X10*3/uL (4.8-10.8)
[2024-02-28 14:47] LABS: Estimated Average Glucose 105 mg/dL; Hemoglobin A1C 108.9756 umol/L; Hemoglobin A1c % 5.3 % (<6.0); Total Hemoglobin (HGBA1C) 3196.7103 umol/L
[2024-02-28 14:59] LABS: Alanine Aminotransferase 21 U/L (0-31); Albumin Level 4.1 g/dL (3.5-5.0); Alkaline Phosphatase 79 U/L (39-117); Anion Gap 7 (12-20); Aspartate Amino Transferase 24 U/L (5-31); Bilirubin Total 0.5 mg/dL (0.0-1.0); Blood Urea Nitrogen 12 mg/dL (9-16); Carbon Dioxide 28 mmol/L (22-29); Chloride 111 mmol/L (96-108); Cholesterol 234 mg/dL (<200); Estimated Glomerular Filt Rate > 60; Glucose Random 89 mg/dL (60-115); HDL Cholesterol 83 mg/dL (>40); LDL Cholesterol Calculated 137 mg/dL (<100); Potassium 4.3 mmol/L (3.3-5.1); Sodium 142 mmol/L (135-145); Total Protein 7.6 g/dL (6.5-8.0); Triglycerides 73 mg/dL (<150)
[2024-02-28 15:16] LABS: TSH reflex Free T4 1.18 uIU/mL (0.32-4.0)
[2024-02-28 17:31] LABS: CT PCR NOT DETECTED (Not Detect.); NG PCR NOT DETECTED (Not Detect.)
[2024-02-29 03:35] LABS: HIV AB/AG Nonreactive (Nonreactive); HIV Num 1 0.05 S/CO (0.00-0.99)
[2024-02-29 17:03] LABS: RPR Rapid Plasma Reagin NON-REACTIVE (NON-REACTIVE)
[2024-03-01 18:44] LABS: HCV Log PCR <1.18 NOT DETECTED Log IU/mL (NOT DETECTED); HepC Viral Load <15 NOT DETECTED IU/mL (NOT DETECTED)
== END 2024-02-28 10:39 | disposition home or self-care (01) ==
LOC: HO.CHCLDS 10:38
PROVIDERS: Visit Provider Registered Nurse
DX: Z00.00 Encounter for general adult medical examination without abnormal findings (principal)
CPT/HCPCS: 36415; 80053; 80061; 83036; 84443; 85025; 86592; 87389; 87491; 87522; 87591

== ENCOUNTER 2024-04-08 08:48 | Outpatient (REF) | payer OTHER, SELFPAY ==
--- NOTE | ~2024-04-08 | XR_ITS ---
CLINICAL HISTORY: M25.519 - Pain in unspecified shoulder 3 view left shoulder Comparison: CR/SR - XR SHOULDER LT MIN 2V - 05/05/21 09:06 EST Findings: Bones intact. No dislocations. Periarticular osteophyte formation at the acromioclavicular and glenohumeral joints, indicating osteoarthritis. No erosions. No radiopaque foreign body. IMPRESSION: 1. No acute findings This document has been electronically signed by: Luis Miguel Miranda MD on 04/08/2024 15:32:36
== END 2024-04-08 08:49 | disposition home or self-care (01) ==
LOC: HO.HOSX 08:48
PROVIDERS: Visit Provider Physician Assistant
DX: M25.512 Pain in left shoulder (principal); M54.12 Radiculopathy, cervical region; M75.52 Bursitis of left shoulder
CPT/HCPCS: 73030; 99202

== ENCOUNTER 2024-04-08 09:43 | Outpatient (AMB) | payer OTHER, SELFPAY ==
--- NOTE | 2024-04-08 09:57 | MHC.OFFVIS ---
Vital Signs 04/08/24 10:11 Height 5 ft 5 in Weight 166 lb BMI 27.6 Intake Visit Reasons: New Pt - left shoulder pain Intake Note: Nati is a 49 year old right hand dominant female who presents today as a new patient for a evaluation of her left shoulder pain. Patient reports ongoing pain for more than 3 years. No known injury. She states that her pain is located through out her shoulder that travels up her neck as well as to her shoulder blade. Patient mentions that her pain is worse when she is pushing, pulling, lifting/carrying objects. Limited ROM. Discomfort with sleeping. Finds little relief with acetaminophen. No other tx. Yardage Control Operator Forming Required: Yes Yardage Control Operator Forming Services: Yardage Control Operator Forming Present Yardage Control Operator Forming Name: Diya [id number], Adrian [id number] Allergies No Known Allergies Allergy (Verified 04/08/24 10:00) HPI HPI New Pt - left shoulder pain: Details: Ms. Fierro is a 49-year-old right-hand dominant female who presents to the office today for evaluation of left shoulder pain. She reports that she has had ongoing left shoulder pain for the past 3 years. No acute injury or trauma. She reports that the pain is located through the shoulder and radiates up to her neck and into her shoulder blade. She also reports numbness and tingling that goes from the shoulder to the digits in her left hand. She reports limited range of motion and difficulty with overhead motion. She has tried Tylenol with mild relief. [facility] Medical History No known health problems Surgical History Hx of section Social History (Updated 04/08/24 @ 10:00 by KIA Mccurdy) Alcohol intake: never Patient Tobacco Use Status: Never used Tobacco Current occupational status: employed Current occupation: [employer], right Female Reproductive History Menstrual Age of Menarche: 10 Review of Systems Const All systems reviewed & are unremarkable except as noted in HPI and below Physical Exam Vital Signs: BMI result Body Mass Index 27.6 Const General: cooperative, healthy appearing and no acute distress Resp Effort & Inspection: normal respiratory effort and able to speak in complete sentences Cardio Rate: regular rate Peripheral pulses: Peripheral pulses 2+ throughout Skin Lesions: no lesions Rashes: no rashes Extrem Other: Left shoulder inflammation over the lateral bursa. Able to perform 90 degrees of forward flexion and abduction. Able to perform external rotation to end range. Able to reach to back pocket. 4/5 strength with empty can. Increase in left shoulder pain with rotation of the head to the right. NVI. Assessment & Plan Assessment & Plan (1) Bursitis of shoulder, left: Code(s): M75.52 - Bursitis of left shoulder Category: Medical (2) Cervical radiculopathy: Code(s): M54.12 - Radiculopathy, cervical region Category: Medical Plan Ms. Fierro is a 49-year-old right-hand dominant female who presents to the office today for evaluation of left shoulder pain. She reports that she has had ongoing left shoulder pain for the past 3 years. No acute injury or trauma. She reports that the pain is located through the shoulder and radiates up to her neck and into her shoulder blade. She also reports numbness and tingling that goes from the shoulder to the digits in her left hand. She reports limited range of motion and difficulty with overhead motion. She has tried Tylenol with mild relief. On physical exam the patient does have swelling over the bursa. However, the majority of her symptoms appear to be related to cervical radiculopathy. I have recommended a follow-up with Dr. Conway and a referral to physical therapy. Follow up with Orthopedics will be p.r.n., sooner if needed. X-rays of the left shoulder were obtained in the office today and are available for review and are negative for any acute fracture dislocation. Orders: Orders XR shoulder LT min 2V Today M25.519 - Pain in unspecified shoulder Coding Level of Care Code New Pt Level 4 (26609) Diagnoses Bursitis of shoulder, left M75.52 Cervical radiculopathy M54.12
[2024-04-08 10:11] VITALS: BMI 27.6
--- OUTSIDE RECORDS SUMMARY | 2024-04-08 10:23 | XMS_ITS | Encounter Summary ---
Author Organization [employer] Address [address] [facility] [address] [place] [address] Care Team Providers Care Appraiser Land Name Role Phone AlyssaShu campbell BLOSSOM Primary Care Provider [phone] Hina Santos MD Unavailable Jovanni Byrd MD Unavailable Reason for Visit * Reason Onset Date Comments Results 03/14/2024 Encounter Details Date Type Department Care Team (Late st Contact Info) Description 03/14/2024 Telephone [facility] MED & PEDS [address] [place] [address] Quita Fontana, BRET Results Social History Tobacco Use Types Packs/Day Years Used Date Smoking Tobacco: Never Passive Smoke Exposure: Never Smokeless Tobacco: Never Alcohol Use Standard Drinks/Week Comments Defer 0 (1 standard drink = 0.6 oz pur e alcohol) Socially Depression Answer Date Recorded Patient Health Questionnaire-9 Score 5 02/25/2024 Patient Health Questionnaire-9 Score 5 02/25/2024 Last PHQ-9: Questionnaire Data Not on file 1 04/27/2023 Housing Stability Answer Date Recorded What is your housing situation today? I have lorrie garcia 02/19/[address] you li ve. Do you have problems with any of the following? None of the above 02/19/2024 Food Insecurity Answer Date Recorded Within the past 12 months, y ou worried that your food would run out before you got money to buy more: Never True 02/19/2024 Within the past 12 months,th e food you bought just didn't last and you didn't have enough money to get more: Never True 12/2023 Transportation Answer Date Recorded In the past 12 months, has l ack of transportation kept you from medical appts, meetings, work or from getting things needed for daily living? No 02/19/2024 Utilities Answer Date Recorded In the past 12 months, has t he electric, gas, oil or water company threatened to shut off services in your home? No 02/19/2024 Depression Answer Date Recorded Patient Health Questionnaire-2 Score 2 02/25/2024 Internet Access Answer Date Recorded Internet Access Q1 Yes 02/19/2024 Internet Access Q2 Not on file 02/19/2024 Comments No Sex and Gender Information Value Date Recorded Sex Assigned at Female 01/09/2022 10:38 AM EDT Legal Sex Female 10:38 AM EDT Gender Identity Female 01/09/2022 10:38 AM EDT Sexual Orientation Straight 09/25/2023 11 :12 AM EDT documented as of this encounter Miscellaneous Notes * Telephone Encounter - Quita Fontana RN - 03/14/2024 9:32 AM EST TC placed to pt with BLS slasher Caroline #[id number] to inform of most recent blood work results below. Pt agreeable to this information and the recommendations given to improve cholesterol levels. Pt advised about the process and procedure for dropping off nail clippings at [facility]. Pt agreeable to thisplan and will call back as needed. ----- Message from Shu Hurtado sent at 03/13/2024 9:59 AM EST ----- Please call to review labs & ask about toe nail sample: Labs: - Kidney and liver function normal. Thyroid and blood sugar testing normal. - WBC count low, chronic, stable. Recommend continue to follow with Heme/Onc specialist at [facility]. - LDL bad cholesterol levels cont to be elevated. Goal less than 100, and her level as 137. Please advise continued lifestyle interventions including goal physical activity 150 mins per week, nutritious food with good fiber and vegetable intake. - STI testing negative Please also ask if she has had a chance to drop off sample of toe nail clipping to [facility]? (She originally brought to the [facility] in [facility] and they did not accept. Sample should go to the [facility] Mas (Jimy if available) to be sent to [facility]. Order form pre-filled out. Thanks!) Thank you! documented in this encounter Plan of Treatment Not on file documented as of this encounter Visit Diagnoses Not on filedocumented in this encounter Additional Health Concerns Assessment Noted Time PHQ-9 Depression Total Score: 5 02/25/20 24 3:31 PM EST documented as of this encounter Care Teams Appraiser Land Relationship Specialty Start Date End Date Shu Hurtado FNP [address] [place] [id number] PCP - General Family Medicine 11/05/21 Hina Santos MD [address] [place] [phone] Hematology and Oncology 03/09/24 Jovanni Byrd MD [address] [place] [phone] Obstetrics and Gynecology 03/09/24 documented as of this encounter
--- OUTSIDE RECORDS SUMMARY | 2024-04-08 10:23 | XMS_ITS | Encounter Summary ---
Author Organization [employer] Address [address] [facility] [address] [place] [address] Care Team Providers Care Emergency Room Technician Name Role Phone Shu Hurtado Primary Care Provider [phone] Hina Santos MD Unavailable [phone] Jovanni Byrd MD Unavailable Reason for Visit * Reason Comments Med Change Request Encounter Details Date Type Department Care Team ([facility] Contact Info) Description 02/25/2024 Refill [facility] CHC MED & PEDS [address] [place], [place] [id number] Shu Hurtado FNP [address] [place], [place] [phone] Social History Tobacco Use Types Packs/Day Years [...] AM EDT documented as of this encounter Plan of Treatment Not on file documented as of this encounter Visit Diagnoses Not on filedocumented in this encounter Additional Health Concerns Assessment Noted Time PHQ-9 Depression Total Score: 5 02/25/20 24 3:31 PM EST documented as of this encounter Care Teams Emergency Room Technician Relationship Specialty Start Date End Date Shu Hurtado FNP [address] [place] [address] PCP - General Family Medicine 11/05/21 Hina Santos MD [address] [place] [phone] Hematology and Oncology 03/09/24 Jovanni Byrd MD [address] [place] [phone] Obstetrics and Gynecology 03/09/24 documented as of this encounter
--- OUTSIDE RECORDS SUMMARY | 2024-04-08 10:23 | XMS_ITS | Clinical Summary ---
Author Organization [employer] Address [address] [place] [address] Care Team Providers Care Title One Teacher Name Role Phone AlyssaShu campbell BLOSSOM Primary Care Provider [phone] Hina Santos MD Unavailable [phone] Jovanni Byrd MD Unavailable Allergies Active Allergy Reactions Criticality Noted Date Comments Calcium Channel Blockers Swelling 09/01/2022 Pedal Edema Medications ibuprofen 600 MG tabletIndication s:Routine health maintenance Take 1 tablet (600 mg) by mouth every 8 (eight) hours if needed for headaches or moderate pain. 100 tablet 3 4 02/25/20 25 Active magnesium oxide (Mag-Ox) 400 mg tabletIndication s:Sleep difficulties Take 1 tablet (400 mg) by mouth at bedtime. 90 tablet 1 4 Active Menthol-Methyl Salicylate (Muscle Rub) 10-15 % creamIndications :Pain and swelling of left shoulder Apply thin layer by topical route 2-3 times daily as needed for muscle pain. 85 g 4 Active Ciclopirox 8 % kitIndications:O nychauxis Apply to affected toenail(s) in combination with weekly nail trimming and periodic nail debridement. Remove with alcohol every 7 days; continue therapy until nail clearance (maximum duration: 48 weeks) 35 mL 2 4 Active Active Problems Problem Noted Date Diagnosed Date Other neutropenia 09/21/2023 Overview (09/21/2023): Lab Results Component Value Date WBC 5.3 07/09/2023 WBC 3.5 (L) 07/02/2023 WBC 2.7 (L) 06/19/2023 NEUTABSAUTO 3.2 07/09/2023 NEUTABSAUTO 1.4 (L) 07/02/2023 NEUTABSAUTO 0.9 (L) 06/19/2023 Assessment & Plan (03/09/2024 10:25 PM EST): -Initial referral after two low readings. Following with [facility] Heme/Onc. Consult in August 2023 with suspicion of leukopenia r/t UTI or viral infection. Plan to monitor in 6 months. Assessment & Plan (09/21/2023 3:33 PM EDT): -Initial referral after two low readings. Following with [facility] Heme/Onc. Consult in August 2023 with suspicion of leukopenia r/t UTI or viral infection. Plan to monitor in 6 months. PCB (post coital bleeding) 03/16/2023 Overview (06/17/2023): 10/26/22: [facility] [employer]. Byrd - visit for post-coital bleeding. Biopsy of the endocervical polyp. Pathology: Cervix, polyp, biopsy: Small fragment of squamous mucosa within normal limits; negative for a squamous intraepithelial lesion. Assessment & Plan (03/09/2024 10:24 PM EST): Denies PCB since, follow up with [facility] [employer] as scheduled Assessment & Plan (06/17/2023 10:54 AM EDT): Denies PCB since, follow up with [facility] [employer] as scheduled Primary hypertension 07/19/2022 Assessment & Plan (03/09/2024 10:25 PM EST): Well controlled Currently off medication Previous tx - amlodipine lead to lower extremity edema Continue with low salt diet and daily physical activity ED precautions reviewed Assessment & Plan (06/17/2023 10:53 AM EDT): Currently off medication Previous tx - amlodipine lead to lower extremity edema Experiencing flare of stress in life, as well as intermittent WILKINS over the past week, which may be contributing to increased BP in office Initial BP: 154/92, repeat 146/90 Plan: record home BP x 2 weeks, follow up for RN visit for BP check. Plan to start olmesartan 5mg daily if BP above goal Continue with low salt diet and daily physical activity ED precautions reviewed Assessment & Plan (11/09/2022 2:12 PM EDT): ?? Currently well controlled off medication (Previous tx - amlodipine lead to lower extremity edema) ?? Continue with low salt diet and daily physical activity ?? ED precautions reviewed Assessment & Plan (07/20/2022 7:36 AM EDT): ?? BP well controlled on current regimen, asymptomatic ?? Continue amlodipine 5mg daily ?? Continue with low salt diet and daily physical activity ?? ED precautions reviewed Routine health maintenance 05/29/2022 Overview (03/09/2024): Last PE: 02/25/24 Pap: 10/30 nilm hpv-, repeat 11/04 Mammo: 11/19/23: Mammo BIRADS 1 Colon cancer: Cologuard (per records, received Oct 2021, pt reports sent back to company (Last year ?2022) and was told results were normal. Referral to GI for colonoscopy placed 09/21/23 Assessment & Plan (06/17/2023 11:16 AM EDT): Lab work due July 2023, ordered now to be completed next month Breast lump 10/18/2021 Overview (06/17/2023): Diagnotic mammo on 11/15/22: no significant changes from prior study. Stable 7 mm circumscribed nodule 12:30 o'clock axis right breast middle one third. Stable over 2 years and is considered benign. Return to routine annual screening. Hyperlipidemia 05/23/2021 Encounters Date Type Department Care Team Description 03/14/2024 Telephone [facility] [address] [place] [address] Shu Hurtado FNP 03/14/2024 Telephone [facility] [address] [place] [address] Quita Fontana, RN Results 02/25/2024 1:15 PM EST Office Visit [facility] [address] [place] [address] Shu Hurtado FNP Physical exam (Primary Dx); Routine health maintenance; Pain and swelling of left shoulder; Onychauxis; PCB (post coital bleeding); Primary hypertension; Other neutropenia (CMS/HCC); Sleep difficulties 02/25/2024 Refill [facility] [address] [place] [address] Shu Hurtado FNP 02/25/2024 Travel 02/21/2024 Telephone [facility] [address] [place] [address] Gucci German [place] Chart Prep 02/19/2024 Patient Outreach [facility] [address] [place] [address] Shu Hurtado FNP Pre-visit Planning (SDOH negative, Tobacco screening negative. ) 02/14/2024 11:00 AM EST Office Visit [facility] AD[facility] [address] [place] [address] Samara Corrales DDS from Last 3 Months Immunizations Name Administration Dates Next Due DTaP 03/30/2020 Influenza Injectable Quadriv alant Preservative Free IIV4 MDCK 02/02/2021 Influenza injectable quadrivalent preservative f ree 12/30/2021,03/30/2020 MMR 03/30/2020 Tdap 02/07/2021 Varicella 03/30/2020 Family History Medical History Relation Name Comments Hypertension Father Cerebral aneurysm Mother Hypertension Mother Kidney failure Mother diabetes mellitus Mother Hypertension Sister Relation Name Status Comments Father Mother Sister Social History Tobacco Use Types Packs/Day Years Used Date Smoking Tobacco: Never Passive Smoke Exposure: Never Smokeless Tobacco: Never Tobacco Cessation:Counseling Given: Not Answered Alcohol Use Standard Drinks/Week Comments Defer 0 [...] Orientation Straight 09/25/2023 11 :12 AM EDT Last Filed Vital Signs Vital Sign Reading Time Taken Comments Blood Pressure 133/80 02/25/2024 1:27 PM EST Pulse 73 02/25/2024 1:27 PM EST Temperature 36.7 ??C (98 ??F) 02/25/2024 1:27 PM EST Respiratory Rate 20 02/25/2024 1:27 PM EST Oxygen Saturation 96% 02/25/2024 1:27 PM EST Inhaled Oxygen Concentration - - Weight 73 kg (161 lb) 02/25/2024 1:27 PM EST Height 165.1 cm (5' 5 ) 02/25/2024 1:27 PM EST Body Mass Index 26.79 02/25/2024 1:27 PM EST Plan of Treatment Health Maintenance Due Date Last Done Comments CT Colonography 1975 Colonoscopy 1975 Colorectal Cancer Screening 1975 FIT DNA/Cologuard 1975 FIT 1975 FOBT 1975 Sigmoidoscopy 1975 Pneumococcal Vaccine: Pediatrics (0 to 5 Years) and At-Risk Patients (6 to 64 Years) (1 of 2 - PCV) 01/20/1982 Family Planning (PISQ) 01/20/1991 Hepatitis B Vaccines (1 of 3 - 19+ 3-dose series) 01/20/1995 Zoster Vaccines (1 of 2) 05/25/2020 COVID-19 Vaccine ( - season) 2023 02/07/2021, 07/25/2020, 07/04/2020 Influenza Vaccine (#1) 2023 , 02/02/2021, 03/30/2020 Dental Oral Exam 06/20/2024 12/20/2023 Dental Prophylaxis 06/20/2024 12/20/2023 Mammogram 11/18/2024 11/19/2023, 09/0 08/2022, 11/08/2021, Additional history exists Tobacco Screening 12/19/2024 12/20/2023 Dental X-Ray: Bitewings 12/20/2024 12/20/2023 Alcohol/Substance Use Screening 02/24/2025 02/25/2024 Depression Screening 02/24/2025 02/25/2024, 02/25/20 24 SDOH Screening 02/24/2025 02/25/2024 Dental X-Ray: Full Mouth 12/20/2026 12/20/2023 Cervical Cancer Screening 10/27/2027 HPV/Cotest 10/27/2027 10/07/2020 Pap Smear 10/27/2027 10/26/2022, 10/07/2020 Lipid Panel 02/27/2029 02/28/2024, 04/0 11/2023, 07/14/2022, Additional history exists DTaP/Tdap/Td Vaccines (3 - Td or Tdap) 02/07/2031 02/07/2021, 03/30/2020 RSV Patients and Patients Aged 60 years or older (1 - 1-dose 75+ series) 01/20/2051 HIV Screening Completed 02/28/2024, 04/0 11/2023, 07/14/2022, Additional history exists Hepatitis C Screening Completed 02/28/2024 , 06/19/2023, 07/14/2022, Additional history exists HIB Vaccines Aged Out No longer eligi ble based on patient's age to complete this topic HPV Vaccines Aged Out No longer eligi ble based on patient's age to complete this topic Hepatitis A Vaccines Aged Out No long er eligible based on patient's age to complete this topic IPV Vaccines Aged Out No longer eligi ble based on patient's age to complete this topic Meningococcal Vaccine Aged Out No eunice shirley eligible based on patient's age to complete this topic RSV under 20 months Aged Out No longe r eligible based on patient's age to complete this topic Rotavirus Vaccines Aged Out No longer eligible based on patient's age to complete this topic Procedures Procedure Name Priority Date/Time Associated Diagnosis Comments CHLAMYDIA/N. GONORRHOEAE RNA, TMA, UROGENITAL Routine 02/28/2024 10:46 AM EST Routine health maintenance HIV 1/2 ANTIGEN/ANTIBODY, FOURTH GENERATION W/RFL Routine 02/28/2024 10:40 AM EST Routine health maintenance RPR (MONITOR) W/REFL TITER Routine 02/28/2024 10:40 AM EST Routine health maintenance HEPATITIS C VIRAL RNA, QUANTITATIVE, REAL-TIME PCR Routine 02/28/2024 10:40 AM EST Routine health maintenance CBC WITH AUTO DIFFERENTIAL Routine 02/28/2024 10:40 AM EST Routine health maintenance COMPREHENSIVE METABOLIC PANEL Routine 02/28/2024 10:40 AM EST Routine health maintenance TSH W/REFLEX TO FT4 Routine 02/28/2024 1 0:40 AM EST Routine health maintenance HEMOGLOBIN A1C Routine 02/28/2024 10:40 AM EST Routine health maintenance LIPID PANEL, STANDARD Routine 02/28/2024 10:40 AM EST Routine health maintenance 31 O RESTORATIVE - RESIN-BASED COMPOSITE RESTORATIONS - DIRECT - RESIN-BASED COMPOSITE - ONE SURFACE, POSTERIOR Routine 02/14/2024 11:00 AM EST 18 O RESTORATIVE - RESIN-BASED COMPOSITE RESTORATIONS - DIRECT - RESIN-BASED COMPOSITE - ONE SURFACE, POSTERIOR Routine 02/14/2024 11:00 AM EST PROPHYLAXIS - ADULT Routine 12/20/2023 9 :00 AM EDT DIAGNOSTIC - DIAGNOSTIC IMAGING - INTRAORAL - COMPREHENSIVE SERIES OF RADIOGRAPHIC IMAGES Routine 12/20/2023 9:00 AM EDT COMPREHENSIVE ORAL EVALUATION - NEW OR ESTABLISHED PATIENT Routine 12/20/2023 9:00 AM EDT BI MAMMOGRAM SCREENING TOMOSYNTHESIS BILATERAL Routine 11/19/2023 8:55 AM EDT PAP SMEAR Routine 10/26/2022 10:10 AM EDT HPV MRNA E6/E7 Routine 10/07/2020 9:23 AM EDT from Last 3 Months or Most Recently Relevant to Health Maintenance Results * Chlamydia/N. Gonorrhoeae RNA, TMA, Urogenitial (02/28/2024 10:46 AM EST) CT PCR NOT DETECTED Not Detect. [facility] Comment:A not detected test result does not exclude the possibilityof infection because test results can be affected byimproper specimen collection, concurrent antibiotic therapy,or the number of organisms in the specimen which may bebelow the sensitivity of the test. As with many diagnostictests, results from the Xpert CT/NG assay should beinterpreted in conjunction with other laboratory andclinical data available to the clinician.Xpert CT/NG performance has not been evaluated in patientsless than 14 years of age. The assay should not be used forthe evaluationof suspected sexual abuse or for other medico-legalindications. Additional testing is recommended in anycircumstance when false positive or false negative resultscould lead to adverse medical, social or psychologicalconsequences. NG PCR NOT DETECTED Not Detect. [facility] Comment:A not detected test result does not exclude the possibilityof infection because test results can be affected byimproper specimen collection, concurrent antibiotic therapy,or the number of organisms in the specimen which may bebelow the sensitivity of the test. As with many diagnostictests, results from the Xpert CT/NG assay should beinterpreted in conjunction with other laboratory andclinical data available to the clinician.Xpert CT/NG performance has not been evaluated in patientsless than 14 years of age. The assay should not be used forthe evaluationof suspected sexual abuse or for other medico-legalindications. Additional testing is recommended in anycircumstance when false positive or false negative resultscould lead to adverse medical, social or psychologicalconsequences. Urine, Random 02/28/2024 10: 46 AM EST 02/28/2024 2:14 PM EST Narrative [facility] - 02/28/2024 5:32 PM EST Urine Shu [employer] [facility] MICROBIOLOGY - GENERAL ORD ERABLES Final Result Performing Organization Address [facility] Co de Phone Number [facility] [address] [place] [phone] * TSH with Reflex to Free T4 (02/28/2024 10:40 AM EST) Pathologist [facility] TSH reflex Free T4 1.18 0.32 - 4.0 uIU/mL [facility] Blood 02/28/2024 10:4 0 AM EST 02/28/2024 2:28 PM EST [facility] BLOOD ORDERABLES Final Res ult Performing Organization Address [facility] Co de Phone Number [facility] [address] [place] [phone] * Hepatitis C Viral RNA, Quantitative, Real-Time PCR (02/28/2024 10:40 AM EST) Pathologist [facility] Hepatitis C Viral Load <15 NOT DETECTED NOT DETECTED IU/mL [facility] HCV Log PCR <1.18 NOT DETECTED NOT DETECTED Log IU/mL [facility] Comment:For additional infor mation, please refer [email or web address]/[email or web address](This link is being provided for informational/educational purposes only.)THIS TEST WAS PERFORMED AT:[facility] [place] [phone] JUAN MD Blood 02/28/2024 10:4 0 AM EST 02/28/2024 2:22 PM EST Shu Hurtado MACHINE TOOL OPERATOR LAB BLOOD ORDERABLES Final Res ult [facility] [address] [place] [phone] * (ABNORMAL) CBC auto differential (02/28/2024 10:40 AM EST) White Blood Count 3.2(L) 4.8 - 10.8 X10*3/uL [facility] Red Blood Count 4.13(L) 4.20 - 5.50 X10*6/uL [facility] Hemoglobin 12.4 12.0 - 16.0 g/dl [facility] Hematocrit 36.9(L) 37.0 - 47.0 % [facility] Mean Corpuscular Volume 89.3 80.0 - 98.0 fL [facility] Mean Corpuscular Hemoglobin 30.0 27.0 - 33.0 pg [facility] Mean Corpuscular HGB Conc 33.6 31.0 - 35.0 g/dl [facility] Red Cell Distribution Width 14.5 11.0 - 16.0 % [facility] Platelet Count 293 160 - 400 X10*3/uL [facility] Mean Platelet Volume 10.7 9.4 - 12.3 fL [facility] Neutrophils Percent Auto 39.2(L) 45 - 73 % [facility] Imm Gran Pct Auto 0.3 0.0 - 0.4 % [facility] Lymphocytes Percent Auto 44.8(H) 20 - 40 % [facility] Monocytes Percent Auto 12.6(H) 2 - 11 % [facility] Eosinophils Percent Auto 2.2 0 - 4 % [facility] Basophils Percent Auto 0.9 0 - 2 % [facility] NRBC Pct Auto 0.0 0.0 - 0.2 /100WBC [facility] Neutrophils Absolute Auto 1.2(L) 2.0 - 8.3 x10*3/uL [facility] Imm Gran Abs Auto 0.01 0.00 - 0.03 X10*3/uL [facility] Lymphocytes Absolute Auto 1.4 1.2 - 4.9 X10*3/uL [facility] Monocytes Absolute Auto 0.4 0.1 - 1.2 X10*3/uL [facility] Eosinophils Absolute Auto 0.1 0.0 - 0.4 X10*3/uL [facility] Basophils Absolute Auto 0.0 0.0 - 0.2 X10*3/uL [facility] NRBC Abs Auto 0.000 0.0 - 0.012 X10*3/uL [facility] Blood Venous blood specimen / Unknown 02/28/2024 10:40 AM EST 02/28/2024 2:22 PM EST us Shu Hurtado [facility] BLOOD ORDERABLES Final Res ult [facility] [address] [place] [phone] * RPR (Monitor) with Reflex to??Titer (02/28/2024 10:40 AM EST) RPR (Monitor) w/Refl Titer NON-REACTI VE NON-REACT RICCARDO [facility] Comment:THIS TEST WAS PERFOR MED AT:[facility] [place] [phone] JUAN MD Rapid Plasma Reagin Ab Titer TNP [facility] Blood Venous blood specimen / Unknown 02/28/2024 10:40 AM EST 02/28/2024 2:22 PM EST Shu Hurtado [facility] BLOOD ORDERABLES Final Res ult Performing Organization Address [facility] Co de Phone Number [facility] [address] [place] [phone] * HIV-1/2 Antigen and Antibodies, Fourth Generation, with Reflexes (02/28/2024 10:40 AM EST) HIV AB/AG Nonreactive Nonreactive [facility] Comment:HIV-1 p24 Ag and/or HIV-1/HIV-2 Ab not detected.A test result that is nonreactive does not exclude thepossibility of exposure to or infection with HIV-1 and/orHIV-2. Nonreactive results in this assay for individualswith prior exposure to HIV-1 and/or HIV-2 may be due toantigen and antibody levels that are below the limit ofdetection of this assay.[employer] HIV Ag/Ab Combo assay result andsupplemental assay results should be interpreted inconjunction with the patient's clinical presentation,history and other laboratory results. If the results areinconsistent with clinical evidence, additional testing issuggested to confirm the result. Blood Venous blood specimen / Unknown 02/28/2024 10:40 AM EST 02/28/2024 2:28 PM EST us Shu Hurtado [facility] BLOOD ORDERABLES Final Res ult Performing Organization Address [facility] Co de Phone Number [facility] [address] [place] [phone] * Hemoglobin A1c (02/28/2024 10:40 AM EST) Hemoglobin A1c 5.3 <6.0 % [facility] Comment:Hemoglobin A1C Refer ence Range Adults: 4.8 - 6.0 % Non diabetic: < 6.0 % Goal: < 7.0 %Additional Action Suggested: > 8.0 %Note: Hemoglobin A1c results are invalid for patients with abnormal amounts of HbF. Blood transfusions may impact the HbA1c concentration in the patient sample. Estimated Average Glucose 105 mg/dL [facility] Comment:eAG = Estimated ave rage glucose which is %A1C expressed asaverage glucose, using the formula of the P3Q-RimawhqPmkplqv Glucose study (ADAG), Diabetes Care, Vol.31,#8,Oct. 2007 Blood Venous blood specimen / Unknown 02/28/2024 10:40 AM EST 02/28/2024 2:22 PM EST Shu Bryant [facility] BLOOD ORDERABLES Final Res ult [facility] [address] [place] [address] [phone] * (ABNORMAL) Lipid Panel, Standard (02/28/2024 10:40 AM EST) Triglycerides 73 <150 mg/dL [facility] Comment:Desirable Triglyceri de: less than 150 mg/dLBorderline High Triglyceride 150-199 mg/dLHigh Triglyceride: 200-499 mg/dLVery High Triglyceride: greater than or equal to 5OO mg/dL Cholesterol 234(H) <200 mg/dL [facility] Comment:Desirable Cholestero l: less than 200 mg/dLBorderline High Cholesterol: 200-239 mg/dLHigh Cholesterol: greater than 239 mg/dL LDL Cholesterol Calculated 137(H) <100 mg/dL [facility] Comment:Desirable LDL: less than 100 mg/dLNear Optimal/Above Optimal LDL: 110- 129 mg/dLBorderline High LDL: 130-159 mg/dLHigh LDL: 160-189 mg/dLVery High LDL: greater than or equal to 190 mg/dL HDL Cholesterol 83 >40 mg/dL [facility] Comment:Desirable HDL: great er than 40 mg/dL Note: This HDL assay may give artificially low results in patients with liver disease. Blood Venous blood specimen / Unknown 02/28/2024 10:40 AM EST 02/28/2024 2:28 PM EST Shu Hurtado [facility] BLOOD ORDERABLES Final Res ult Performing Organization Address City/[facility]/ZIP Co de Phone Number [facility] [address] [place] [phone] * (ABNORMAL) Comprehensive Metabolic Panel (02/28/2024 10:40 AM EST) Sodium 142 135 - 145 mmol/L [facility] Potassium 4.3 3.3 - 5.1 mmol/L [facility] Chloride 111(H) 96 - 108 mmol/L [facility] Carbon Dioxide 28 22 - 29 mmol/L [facility] Anion Gap 7(L) 12 - 20 [facility] Urea Nitrogen (BUN) 12 9 - 16 mg/dL [facility] Creatinine, Serum 0.71 0.5 - 1.4 mg/dL [facility] Estimated Glomerular Filt Rate >60 [facility] Comment:Chronic Kidney Disea se: Estimated GFR < 60 mL/min/1.97t8Xxddix Kidney Disease: Estimated GFR < 15 mL/min/1.73m2 Glucose 89 60 - 115 mg/dL [facility] Calcium 9.0 8.4 - 10.2 mg/dL [facility] Bilirubin, Total 0.5 0.0 - 1.0 mg/dL [facility] Aspartate Amino Transferase 24 5 - 31 U/L [facility] Alanine Aminotransferase 21 0 - 31 U/L [facility] Total Protein 7.6 6.5 - 8.0 g/dL [facility] Albumin Level 4.1 3.5 - 5.0 g/dL [facility] Alkaline Phosphatase 79 39 - 117 U/L [facility] Blood Venous blood specimen / Unknown 02/28/2024 10:40 AM EST 02/28/2024 2:28 PM EST Shu Hurtado MACHINE TOOL OPERATOR LAB BLOOD ORDERABLES Final Res ult Performing Organization Address [facility]/ZIP Co de Phone Number [facility] [address] [place] [phone] * BI Mammogram Screening Tomosynthesis Bilateral (11/19/2023 8:55 AM EDT) Anatomical Region Laterality Modality Breast Bilateral Mammography 11/19/2023 8:55 AM EDT Narrative 12/03/2023 5:55 PM EDT ? [facility] ? [address] ?[place], [place] [id number] ? Mammography Report ? Signed ? Patient: Vadim,Nati ?MR#: [id number] ?? 003 ? : 1975 ?Acct:[id number] ? Age/Sex: 48 / F ?ADM Date: 11/19/23 ? Loc: HO.MAMMO ? Attending Dr: Shu Hurtado MACHINE TOOL OPERATOR ? Ordering Physician: Shu Hurtado MACHINE TOOL OPERATOR ?Results: 1Negat ?? riccardo ? Date of Service: 11/19/23 ?Follow Up: 1 Year From Orig ?? inal Mammogram ? Procedure(s): MM tomosynthesis screening BI ?? Accession Number(s): [id number] ? cc: Shu Hurtado MACHINE TOOL OPERATOR ? EXAMINATION: ?? MM SCREENING DIGITAL BREAST TOMOSYNTHESIS, BILATERAL ? CLINICAL INFORMATION: ? Screening. Asymptomatic. ? COMPARISON: ?? Mammography: Comparison is made with available priors ? TECHNIQUE: ?? Digital breast mammography with tomosynthesis is performed in both the ?? craniocaudal and mediolateral oblique views along with computer-aided ?? detection (CAD). ? FINDINGS: ?? The breasts are heterogeneously dense, which may obscure small masses ?? (ACR BI-RADS breast composition Category c). ? There are no significant masses, abnormal calcifications, or other ?? abnormalities. ? MM/MM tomosynthesis screening BI ?? IMPRESSION: ?? No mammographic evidence of malignancy. ? ASSESSMENT: ? BI-RADS BI-RADS 1 - Negative ? RECOMMENDATION: ?? Routine annual mammography screening. ? 1 year F/U ? This examination should not preclude the clinical evaluation of a ?? suspicious palpable abnormality. ? This patient's information was entered into a reminder system with a ?? target due date for their next mammogram. ? Electronically signed by: ??Bea Castellano DO ??12/03/2023 05:52 PM EDT ? Dictated By: ?Bea Castellano DO ? Signed By: ?<Electronically signed by Bea Castellano, DO in OV> ? 12/03/23 1752 ? DD/ 0855 ? TD/TT: 11/19/23 0915 ? Grease And Tallow Pumper: ? Procedure Note David Gonzales - 12/03/2023 [facility] [address] [place] [address] Mammography Report Signed Patient: Suzanne Fierro#: [id number] 003 : 1975Acct:[id number] Age/Sex: 48 / FADM Date: 11/19/23 Loc: HO.MAMMO Attending Dr: Shu Hurtado MACHINE TOOL OPERATOR Ordering Physician: Shu Hurtado FNPResults: 1Negat riccardo Date of Service: 11/19/23Follow Up: 1 Year From Orig inal Mammogram Procedure(s): MM tomosynthesis screening BI Accession Number(s): [id number] cc: Shu Hurtado EXAMINATION: MM SCREENING DIGITAL BREAST TOMOSYNTHESIS, BILATERAL CLINICAL INFORMATION: Screening. Asymptomatic. COMPARISON: Mammography: Comparison is made with available priors TECHNIQUE: Digital breast mammography with tomosynthesis is performed in both the craniocaudal and mediolateral oblique views along with computer-aided detection (CAD). FINDINGS: The breasts are heterogeneously dense, which may obscure small masses (ACR BI-RADS breast composition Category c). There are no significant masses, abnormal calcifications, or other abnormalities. MM/MM tomosynthesis screening BI IMPRESSION: No mammographic evidence of malignancy. ASSESSMENT: BI-RADS BI-RADS 1 - Negative RECOMMENDATION: Routine annual mammography screening. 1 year F/U This examination should not preclude the clinical evaluation of a suspicious palpable abnormality. This patient's information was entered into a reminder system with a target due date for their next mammogram. Electronically signed by: Bea Castellano DO 12/03/2023 05:52 PM EDT Dictated By: Bea Castellano DO Signed By: <Electronically signed by Bea Castellano DO in OV> 12/03/23 1752 DD/ 0855 TD/TT: 11/19/23 0915 Grease And Tallow Pumper: Shu Hurtado MACHINE TOOL OPERATOR IMG BI PROCEDURES Final Result * Pap Smear (10/26/2022 10:10 AM EDT) 10/26/2022 10:1 0 AM EDT 10/27/2022 9:00 AM EDT [facility] - 11/14/2022 9:40 AM EDT ----- ------- Name: Nati Fierro ?Age/Sex: 47/F ? : 1975 Unit#: [id number] ?? Attend Dr: Jovanni Byrd MD ?Re10/26/22 ?Status: DEP REF ? Location: HO.LNP ?Disch: ? ----- ------- SPEC : [id number] ?RECD: 10/27/22 ? STATUS: ??SOUT ? REQ NUM: [id number] ? CHET: 10/26/22-1010 ? SUBM DR: Jovanni Byrd MD ? ENTERED: ??10/27/22 ?SP TYPE: Pap Smr ?OTHR DR: Shu Hurtado MACHINE TOOL OPERATOR ? ORDERED: ??Pap Smear ? Interpretation ?? Satisfactory for evaluation. ?? Negative for intraepithelial lesion or malignancy. ?HPV mRNA E6/E7: ?NOT DETECTED ? This assay detects E6/E7 viral messenger RNA (mRNA) from 14 high-risk HPV types (16, 18, ?? 31, 33, 35, 39, 45, 51, 52, 56, 58, 59, 66, 68) ?? HPV testing performed by [facility], [place], [place]. ??See reference laboratory ?? pion of the EMR for entire report. ?Clinical Information LMP:Postmenopausal Previous PAP test:Unknown date/findings Other history:Polyp of the cervix uteri, amenorrhea unspecified, postcoital and contact bleeding ? Material Received ?? ThinPrep-Cervical Copies To: ?? Shu Hurtado MACHINE TOOL OPERATOR ?? [address] ?? [place] [address] ?? [phone] ?? Jovanni Byrd MD ?? [address] [facility] [address] [facility] ?? [place] [address] ?? [phone] ----- ------- Signed (signature on file) MARIA LUISA Cee ([facility]) 11/14/22 0940 ? ----- ------- ? END OF REPORT ? [facility] External Provider LAB CYT OLOGY ORDERABLES Final Result [facility] [address] [facility] [place] [phone] [phone] * HPV mRNA E6/E7 (10/07/2020 9:23 AM EDT) HPV nRNA E6/E7 Not Detected Not Detected [facility] Comment: Methodology: Hat Parts Cutter Machine-Mediated Amplification This assay detects E6/E7 viral messenger RNA (mRNA) from 14 high-risk HPV types (16,18,31,33,35,39,45,51,52,56,58,59,66,68). ? The analytical performance characteristics of this assay have been determined by [facility]. The modifications have not been cleared or approved by the FDA. This assay has been validated pursuant to the CLIA regulations and is used for clinical purposes. ?? For additional information, please refer to http://education.[employer]/faq/AUZ455p4 (This link if provided for information/ educational purposes only.) 10/07/2020 9:23 AM EDT us Susy Espinoza MD LAB BLOOD ORDERABLES Final Re sult [facility] [address] from Last 3 Months or Most Recently Relevant to Health Maintenance Insurance [facility] [place] [id number] [place] AD[place] DENTAL - HSN FULL (MEDICAID) Care Teams Title One Teacher Relationship Specialty Start Date End Date Shu Hurtado FNP [address] [place] [address] PCP - General Family Medicine 11/05/21 Hina Santos MD [address] [place] [address] Hematology and Oncology 03/09/24 Jovanni Byrd MD [address] [place] [address] Obstetrics and Gynecology 03/09/24
--- OUTSIDE RECORDS SUMMARY | 2024-04-08 10:23 | XMS_ITS | Encounter Summary ---
Author Organization [employer] Address [address] [facility] [address] [place] [address] Care Team Providers Care Fishing Tackle Repairer Name Role Phone Shu Hurtado Primary Care Provider [phone] Hina Santos MD Unavailable [phone] Jovanni Byrd MD Unavailable Encounter Details Date Type Department Care Team ([facility] st Contact Info) Description 03/14/2024 Telephone [facility] [address] [place] [address] Shu Hurtado FNP [address] [place], [place] [id number] Social History Tobacco Use Types Packs/Day Years [...] documented as of this encounter Care Teams Fishing Tackle Repairer Relationship Specialty Start Date End Date Shu Hurtado FNP [address] [place] [address] PCP - General Family Medicine 11/05/21 Hina Santos MD [address] [place] [address] Hematology and Oncology 03/09/24 Jovanni Byrd MD [address] [place] [address] Obstetrics and Gynecology 03/09/24 documented as of this encounter
--- OUTSIDE RECORDS SUMMARY | 2024-04-08 10:23 | XMS_ITS | Encounter Summary ---
Author Organization [employer] Address [address] [place] [address] [place] [address] Care Team Providers Care Manager Export Name Role Phone Shu Hurtado Primary Care Provider Hina Santos MD Unavailable [phone] Jovanni Byrd MD Unavailable Encounter Details Date Type Department Care Team (Late st Contact Info) Description 02/14/2022 Abstract [facility] [address] [place] [address] ProviderSamanta MD Social History Tobacco Use Types Packs/Day Years Used Date Smoking Tobacco: Never Assessed Comments Unknown Sex and Gender Information Value Date Recorded Sex Assigned at Female 01/09/2022 10:38 AM EDT Legal Sex Female 10:38 AM EDT Gender Identity Female 01/09/2022 10:38 AM EDT Sexual Orientation Straight 09/25/2023 11 :12 AM EDT documented as of this encounter Plan of Treatment Not on file documented as of this encounter Visit Diagnoses Not on filedocumented in this encounter Care Teams Manager Export Relationship Specialty Start Date End Date Shu Hurtado FNP [address] [place] [address] PCP - General Family Medicine 11/05/21 Hina Santos MD [address] [place] [address] Hematology and Oncology 03/09/24 Jovanni Byrd MD [address] [place] [address] Obstetrics and Gynecology 03/09/24 documented as of this encounter
== END 2024-04-08 10:27 | disposition home or self-care (01) ==
PROVIDERS: PCP Registered Nurse; Visit Provider Physician Assistant
DX: M75.52 Bursitis of left shoulder (principal); M54.12 Radiculopathy, cervical region
CPT/HCPCS: 99204

== ENCOUNTER → 2024-04-08 09:48 | Outpatient (BNV) | payer OTHER, SELFPAY | PROVIDERS: Visit Provider Radiology Diagnostic Radiology | DX: M25.512 Pain in left shoulder (principal) | CPT/HCPCS: 73030 ==

== ENCOUNTER → 2024-04-10 10:48 | Outpatient (BNVA) | payer OTHER, SELFPAY | PROVIDERS: PCP Registered Nurse; Visit Provider Physical Medicine & Rehabilitation | DX: G56.22 Lesion of ulnar nerve, left upper limb (principal); M75.52 Bursitis of left shoulder; M19.012 Primary osteoarthritis, left shoulder; D17.22 Benign lipomatous neoplasm of skin and subcutaneous tissue of left arm | CPT/HCPCS: 99202 ==

== ENCOUNTER 2024-04-24 09:33 | Outpatient (AMB) | payer OTHER, SELFPAY ==
--- NOTE | 2024-04-24 09:44 | A.OFFVIS_ITS ---
Vital Signs 3 04/24/24 09:46 Height 5 ft 5 in Weight 162 lb 8 oz BMI 27.0 BP 135/68 Blood Pressure Location Lt brachial Position Sitting Pulse 72 Intake Visit Reasons: Lipoma~ Lt shoulder Intake Note: Patient is seen in office for evaluation of a mass of the left shoulder. Pt c/o: onset 2 yrs ago, has increase in size, denies redness, discharge, or any concerns regarding the lump ref. Dr Watts:04/10/24 Planer Chain Offbearer Required: Yes Planer Chain Offbearer Language: Automobile Assembly Supervisor Services: Planer Chain Offbearer Present Planer Chain Offbearer Name: Ernestina ADAM Information Interpreted: non-clinical & clinical Sprinkler Installer: Sprinkler Installer Present Accompanied by: Family/Other Allergies No Known Allergies Allergy (Verified 04/24/24 09:45) Medication List - Last Reconciled 04/24/24 by Kwadwo Ortiz MD ibuprofen mg PO BID PRN HPI Comments Details: 49-year-old female patient presenting for evaluation of a soft tissue mass located on the left shoulder. This has been present for several years and has gradually increased in size. She denies any pain associated with the lump but does have some shoulder pain medial to this as well as pain extending down the left arm. She denies previous surgery or trauma in this location. She would like to have the lump removed if possible. [facility] Medical History No known health problems Surgical History Hx of section Social History Alcohol intake: never Patient Tobacco Use Status: Never used Tobacco Current occupational status: employed Current occupation: [employer] right Female Reproductive History Menstrual Age of Menarche: 10 Review of Systems Const All systems reviewed & are unremarkable except as noted in HPI and below Denies chills, Denies fever(s), Denies headache(s), Denies poor appetite and Denies weakness ENT Denies headache(s) Card Denies chest pain, Denies irregular heart rhythm, Denies palpitations and Denies dyspnea Resp Denies cough, Denies excessive phlegm production and Denies dyspnea GI Denies abdominal pain, Denies bloating, Denies change in bowel habits, Denies constipation, Denies heartburn, Denies diarrhea, Denies nausea and Denies vomiting Denies urinary frequency Musc Denies back pain, Denies muscle weakness and Denies numbness Skin/Breast Denies changing lesions and Denies unusual bruising Neuro Denies headache(s), Denies numbness, Denies paresthesias and Denies weakness Psych Denies anxiety and Denies depression Endo Denies palpitations Efe/Lymph Denies lymphadenopathy Physical Exam Const General: cooperative and no acute distress Nutritional Appearance: well nourished Orientation/consciousness: patient oriented x3 Limitations: no limitations HEENT Head: Yes normocephalic and Yes atraumatic Ears: hearing grossly normal bilaterally Resp Effort & Inspection: normal respiratory effort, no audible wheezes, no cough and no respiratory distress Cardio Jugular venous distension: no JVD GI Inspection: Yes normal to inspection Skin Other: Warm, dry, no rash Neuro General: patient oriented x3 Extrem General: Yes no clubbing, cyanosis or edema Shoulder/upper arm images: 2 1. 7 cm soft tissue mass located over the deltoid left shoulder, mobile within the subcutaneous tissue suggestive of a subcutaneous lipoma. Assessment & Plan Assessment & Plan (1) Lipoma of left shoulder: Code(s): D17.22 - Benign lipomatous neoplasm of skin and subcutaneous tissue of left arm Category: Medical Plan 49-year-old female patient with a soft tissue mass located over the left shoulder suggestive of a lipoma. The lesion measures approximately 7 cm in diameter in his mobile within the subcutaneous tissue. I recommended an excision of this lipoma under anesthesia as a short-stay surgery and after discussion of the procedure, risks, and alternatives, she consents to excision of the left shoulder lipoma. Coding Level of Care Code New Pt Level 4 (16368) Diagnoses Lipoma of left shoulder D17.22
[2024-04-24 09:46] VITALS: BP 135/68; PULSE 72; BMI 27.0
--- OUTSIDE RECORDS SUMMARY | 2024-04-24 10:03 | XMS_ITS | Clinical Summary ---
Author Organization [employer] Address [address] [facility] 7t [place] [address] Care Team Providers Care Manager [place] Name Role Phone AlyssaShu campbell [place] Primary Care Provider [phone] Hina Santos MD Unavailable [phone] Jovanni Byrd MD Unavailable Allergies Active [...] referral after two low readings. Following with [facility] Heme/Onc. Consult in August 2023 with suspicion of leukopenia r/t UTI or viral infection. Plan to monitor in 6 months. Assessment & Plan (09/21/2023 3:33 PM EDT): -Initial referral after two low readings. Following with [facility] Heme/Onc. Consult in August 2023 with suspicion of leukopenia r/t UTI or viral infection. Plan to monitor in 6 months. PCB (post coital bleeding) 03/16/2023 Overview (06/17/2023): 10/26/22: [facility] AFTER SCHOOL PROGRAM ASSISTANT Dr. Byrd - visit for post-coital bleeding. Biopsy of the endocervical polyp. Pathology: Cervix, polyp, biopsy: Small fragment of squamous mucosa within normal limits; negative for a squamous intraepithelial lesion. Assessment & Plan (03/09/2024 10:24 PM EST): Denies PCB since, follow up with [facility] AFTER [employer] PROGRAM ASSISTANT as scheduled Assessment & Plan (06/17/2023 10:54 AM EDT): Denies PCB since, follow up with [facility] AFTER [employer] PROGRAM ASSISTANT as scheduled Primary hypertension 07/19/2022 Assessment & [...] Type Department Care Team Description 03/14/2024 Telephone [employer] [facility] [address] [place] [address] Shu Hurtado FNP 03/14/2024 Telephone [facility] MED & PEDS [address] [place] [address] Quita Fontana, RN Results 02/25/2024 1:15 PM EST Office Visit [facility] MED & PEDS [address] [place] [address] Shu Hurtado FNP Physical exam (Primary Dx); Routine health maintenance; Pain and swelling of left shoulder; Onychauxis; PCB (post coital bleeding); Primary hypertension; Other neutropenia (CMS/HCC); Sleep difficulties 02/25/2024 Refill [facility] MED & PEDS [address] [place] [address] Shu Hurtado FNP 02/25/2024 Travel 02/21/2024 Telephone [facility] MED & PEDS [address] [place] [address] Gucci German MA Chart Prep 02/19/2024 Patient Outreach [facility] MED & PEDS [address] [place] [address] Shu Hurtado FNP Pre-visit Planning (SDOH negative, Tobacco screening negative. ) 02/14/2024 11:00 AM EST Office Visit [facility] ADULT DENTAL [address] [place] [address] Samara oCrrales DDS from Last 3 Months Immunizations Name [...] 02/25/2024 1:27 PM EST Plan of Treatment Upcoming Encounters Date Type Department Care Team (Late st Contact Info) Description 05/14/2024 2:00 PM EST Office Visit [facility] ADULT DENTAL [address] [place] [address] Samara Corrales, MARSHAL [address] [place] [address] Health Maintenance Due Date Last Done Comments CT Colonography 1975 Colonoscopy 1975 Colorectal Cancer Screening 1975 FIT DNA/Cologuard 1975 FIT 1975 FOBT 1975 Sigmoidoscopy 1975 Family Planning (PISQ) 01/20/1991 Hepatitis B Vaccines (1 of 3 - 19+ 3-dose series) 01/20/1995 Pneumococcal Vaccine: Pediatrics (0 to 5 Years) and At-Risk Patients (6 to 49) Years) (1 of 2 - PCV) 01/20/1995 Zoster Vaccines (1 of 2) 05/25/2020 [...] 10/27/2027 10/26/2022, 10/07/2020 Lipid Panel 02/27/2029 02/28/2024, 0 11/2023, 07/14/2022, Additional history exists DTaP/Tdap/Td Vaccines (3 - Td or Tdap) 02/07/2031 02/07/2021, 03/30/2020 RSV Patients and Patients Aged 60 years or older (1 - 1-dose 75+ series) 01/20/2051 HIV Screening Completed 02/28/2024, 0 11/2023, 07/14/2022, Additional history exists Hepatitis C [...] AM EST Routine health maintenance 31 O RESIN-BASED COMPOSITE - 1 SURF, POSTERIOR Routine 02/14/2024 11:00 AM EST 18 O RESIN-BASED COMPOSITE - 1 SURF, POSTERIOR Routine 02/14/2024 11:00 AM EST PROPHYLAXIS - ADULT Routine 12/20/2023 9 :00 AM EDT INTRAORAL - COMPLETE SERIES OF RADIOGRAPHIC IMAGES Routine 12/20/2023 9:00 [...] RNA, TMA, Urogenitial (02/28/2024 10:46 AM EST) Pathologist [facility] CT PCR NOT DETECTED Not Detect. [facility] Comment:A not detected test result [...] psychologicalconsequences. NG PCR NOT DETECTED Not Detect. [facility] Comment:A not detected test result [...] AM EST 02/28/2024 2:14 PM EST Narrative [facility] - 02/28/2024 5:32 PM EST Urine Shu C$ cMoneyadrian [facility] MICROBIOLOGY - GENERAL ORD ERABLES Final Result Performing Organization Address [facility]/ZIP Co de Phone Number [facility] [address] [place] [phone] * TSH with Reflex to Free T4 (02/28/2024 10:40 AM EST) TSH reflex Free T4 1.18 0.32 - 4.0 uIU/mL [facility] Blood 02/28/2024 10:4 0 AM EST 02/28/2024 2:28 PM EST Shu C$ cMoneyadrian [facility] BLOOD ORDERABLES Final Res ult Performing Organization Address City/[facility] Care [facility]/ZIP Co de Phone Number [facility] [address] [place] [phone] * Hepatitis C Viral RNA, Quantitative, Real-Time PCR (02/28/2024 10:40 AM EST) Pathologist [facility] Hepatitis C Viral Load <15 NOT DETECTED NOT DETECTED IU/mL [facility] HCV Log PCR <1.18 NOT DETECTED NOT DETECTED Log IU/mL [facility] Comment:For additional infor mation, please refer tohttp://education.[employer]/faq/XVU77l2(This link is being provided for informational/educational purposes only.)THIS TEST WAS PERFORMED AT:[facility] [place] [phone] JUAN MD Blood 02/28/2024 10:4 0 AM EST 02/28/2024 2:22 PM EST Shu Hurtado [employer]ER[employer] LAB BLOOD ORDERABLES Final Res ult [facility] [address] [place] [phone] * (ABNORMAL) CBC auto differential (02/28/2024 10:40 AM EST) Pathologist [facility] White Blood Count 3.2(L) 4.8 - 10.8 X10*3/uL [facility] Red Blood Count 4.13(L) 4.20 - 5.50 X10*6/uL [facility] Hemoglobin 12.4 12.0 - 16.0 g/dl [facility] Hematocrit 36.9(L) 37.0 - 47.0 % [facility] Mean Corpuscular Volume 89.3 80.0 - 98.0 fL [facility] Mean Corpuscular Hemoglobin 30.0 27.0 - 33.0 pg [facility] Mean Corpuscular HGB Conc 33.6 31.0 - 35.0 g/dl [facility] Red Cell Distribution Width 14.5 11.0 - 16.0 % [facility] Platelet Count 293 160 - 400 X10*3/uL [facility] Mean Platelet Volume 10.7 9.4 - 12.3 fL [facility] Neutrophils Percent Auto 39.2(L) 45 - 73 % [facility] Imm Gran Pct Auto 0.3 0.0 - 0.4 % [facility] Lymphocytes Percent Auto 44.8(H) 20 - 40 % [facility] Monocytes Percent Auto 12.6(H) 2 - 11 % [facility] Eosinophils Percent Auto 2.2 0 - 4 % [facility] Basophils Percent Auto 0.9 0 - 2 % [facility] NRBC Pct Auto 0.0 0.0 - 0.2 /100WBC [facility] Neutrophils Absolute Auto 1.2(L) 2.0 - 8.3 x10*3/uL [facility] Imm Gran Abs Auto 0.01 0.00 - 0.03 X10*3/uL [facility] Lymphocytes Absolute Auto 1.4 1.2 - 4.9 X10*3/uL [facility] Monocytes Absolute Auto 0.4 0.1 - 1.2 X10*3/uL [facility] Eosinophils Absolute Auto 0.1 0.0 - 0.4 X10*3/uL [facility] Basophils Absolute Auto 0.0 0.0 - 0.2 X10*3/uL [facility] NRBC Abs Auto 0.000 0.0 - 0.012 X10*3/uL [facility] Blood Venous blood specimen / Unknown 02/28/2024 10:40 AM EST 02/28/2024 2:22 PM EST us Shu Hurtado [employer] THER[employer] LAB BLOOD ORDERABLES Final Res ult [facility] [address] [place], [place] [phone] * RPR (Monitor) with Reflex to??Titer (02/28/2024 10:40 AM EST) RPR (Monitor) w/Refl Titer NON-REACTI VE NON-REACT RICCARDO [facility] Comment:THIS TEST WAS PERFOR MED AT:[facility] [place] [phone] JUAN MD Rapid Plasma Reagin Ab Titer TNP [facility] Blood Venous blood specimen / Unknown 02/28/2024 10:40 AM EST 02/28/2024 2:22 PM EST us Shu Hurtado [facility] BLOOD ORDERABLES Final Res ult Performing Organization Address City/Special Care Hospital/ZIP Co de Phone Number [facility] [address] [place] [phone] * HIV-1/2 Antigen and Antibodies, Fourth Generation, with Reflexes (02/28/2024 10:40 AM EST) HIV AB/AG Nonreactive Nonreactive [facility] Comment:HIV-1 p24 Ag and/or HIV-1/HIV-2 Ab not detected.A test result that is nonreactive does not exclude thepossibility of exposure to or infection with HIV-1 and/orHIV-2. Nonreactive results in this assay for individualswith prior exposure to HIV-1 and/or HIV-2 may be due toantigen and antibody levels that are below the limit ofdetection of this assay.The [employer]ions - Eye Tracking HIV Ag/Ab Combo assay result andsupplemental assay results should be interpreted inconjunction with the patient's clinical presentation,history and other laboratory results. If the results areinconsistent with clinical evidence, additional testing issuggested to confirm the result. Blood Venous blood specimen / Unknown 02/28/2024 10:40 AM EST 02/28/2024 2:28 PM EST us Shu Hurtado [facility] BLOOD ORDERABLES Final Res ult Performing Organization Address City/[facility] Care Hospital/ZIP Co de Phone Number [facility] [address] [place] [phone] * Hemoglobin A1c (02/28/2024 10:40 AM EST) Hemoglobin A1c 5.3 <6.0 % [facility] Comment:Hemoglobin A1C Refer ence Range Adults: 4.8 - 6.0 % Non diabetic: < 6.0 % Goal: < 7.0 %Additional Action Suggested: > 8.0 %Note: Hemoglobin A1c results are invalid for patients with abnormal amounts of HbF. Blood transfusions may impact the HbA1c concentration in the patient sample. Estimated Average Glucose 105 mg/dL [facility] Comment:eAG = Estimated ave rage glucose which is %A1C expressed asaverage glucose, using the formula of the O5V-FfghdpaNhnturj Glucose study (ADAG), Diabetes Care, Vol.31,#8,Oct. 2007 Blood Venous blood specimen / Unknown 02/28/2024 10:40 AM EST 02/28/2024 2:22 PM EST us Shu Hurtado [facility] BLOOD ORDERABLES Final Res ult [facility] [address] [place] [phone] * (ABNORMAL) Lipid Panel, Standard (02/28/2024 10:40 AM EST) Triglycerides 73 <150 mg/dL [facility] Comment:Desirable Triglyceri de: less than 150 mg/dLBorderline High Triglyceride 150-199 mg/dLHigh Triglyceride: 200-499 mg/dLVery High Triglyceride: greater than or equal to 5OO mg/dL Cholesterol 234(H) <200 mg/dL [facility] Comment:Desirable Cholestero l: less than 200 mg/dLBorderline High Cholesterol: 200-239 mg/dLHigh Cholesterol: greater than 239 mg/dL LDL Cholesterol Calculated 137(H) <100 mg/dL [facility] Comment:Desirable LDL: less than 100 mg/dLNear Optimal/Above Optimal LDL: 110- 129 mg/dLBorderline High LDL: 130-159 mg/dLHigh LDL: 160-189 mg/dLVery High LDL: greater than or equal to 190 mg/dL HDL Cholesterol 83 >40 mg/dL [facility] Comment:Desirable HDL: great er than 40 mg/dL Note: This HDL assay may give artificially low results in patients with liver disease. Blood Venous blood specimen / Unknown 02/28/2024 10:40 AM EST 02/28/2024 2:28 PM EST Shu Hurtado [employer] THER[employer] LAB BLOOD ORDERABLES Final Res ult [facility] [address] [place], [place] [phone] * (ABNORMAL) Comprehensive Metabolic Panel (02/28/2024 10:40 AM EST) Sodium 142 135 - 145 mmol/L [facility] Potassium 4.3 3.3 - 5.1 mmol/L [facility] Chloride 111(H) 96 - 108 mmol/L [facility] Carbon Dioxide 28 22 - 29 mmol/L [facility] Anion Gap 7(L) 12 - 20 [facility] Urea Nitrogen (BUN) 12 9 - 16 mg/dL [facility] Creatinine, Serum 0.71 0.5 - 1.4 mg/dL [facility] Estimated Glomerular Filt Rate >60 [facility] Comment:Chronic Kidney Disea se: Estimated GFR < 60 mL/min/1.62a2Hpqdab Kidney Disease: Estimated GFR < 15 mL/min/1.73m2 Glucose 89 60 - 115 mg/dL [facility] Calcium 9.0 8.4 - 10.2 mg/dL [facility] Bilirubin, Total 0.5 0.0 - 1.0 mg/dL [facility] Aspartate Amino Transferase 24 5 - 31 U/L [facility] Alanine Aminotransferase 21 0 - 31 U/L [facility] Total Protein 7.6 6.5 - 8.0 g/dL [facility] Albumin Level 4.1 3.5 - 5.0 g/dL [facility] Alkaline Phosphatase 79 39 - 117 U/L [facility] Blood Venous blood specimen / Unknown 02/28/2024 10:40 AM EST 02/28/2024 2:28 PM EST us Shu Hurtado [employer] THERAPIST [employer] LAB BLOOD ORDERABLES Final Res ult [facility] [address] [place] [address] [phone] * BI Mammogram Screening Tomosynthesis Bilateral (11/19/2023 8:55 AM EDT) Anatomical Region Laterality Modality Breast Bilateral Mammography 11/19/2023 8:55 AM EDT Narrative 12/03/2023 5:55 PM EDT ? [facility] ? [address] ?[place] [address] ? Mammography Report ? Signed ? Patient: Vadim,Nati ?MR#: [id number] ?? [id number] ? : 1975 ?Acct:[id number] ? Age/Sex: 48 / F ?ADM Date: 11/19/23 ? Loc: HO.MAMMO ? Attending Dr: Shu Hurtado [employer]ER[employer]IST [employer]IST[employer] ? Ordering Physician: Shu Hurtado [employer] ?Results: 1Negat ?? riccardo ? Date of Service: 11/19/23 ?Follow Up: 1 Year From Orig ?? inal Mammogram ? Procedure(s): MM tomosynthesis screening BI ?? Accession Number(s): [id number] ? cc: Shu Hurtado [employer] THER[employer]IST [employer]IST[employer] ? EXAMINATION: ?? MM SCREENING DIGITAL BREAST [...] 12/03/23 1752 ? DD/ 0855 ? TD/TT: 11/19/2315 ? Knife Blade Polisher: ? Procedure Note David Gonzales - 12/03/2023 [facility] [address] [place] [address] Mammography Report Signed Patient: Suzanne Fierro#: [id number] 003 : 1975Acct:[id number] Age/Sex: 48 / FADM Date: 11/19/23 Loc: [facility] Attending Dr: Shu Hurtado [employer] THER[employer] ASSIST[employer] Ordering Physician: Shu Hurtado FNPResults: 1Negat riccardo Date of Service: 11/19/23Follow Up: 1 Year From Orig inal Mammogram Procedure(s): MM tomosynthesis screening BI Accession Number(s): [id number] cc: Shu Hurtado EXAMINATION: MM SCREENING DIGITAL [...] 12/03/23 1752 DD/ 0855 TD/TT: 11/19/23 0915 Knife Blade Polisher: Shu CERRATO IMG BI PROCEDURES Final Result * Pap Smear (10/26/2022 10:10 AM EDT) 10/26/2022 10:1 0 AM EDT 10/27/2022 9:00 AM EDT [facility] - 11/14/2022 9:40 AM EDT ----- ------- Name: Vadim,Nati ?Age/Sex: 47/F ? : 1975 Unit#: [id number] ?? Attend Dr: Jovanni Byrd MD ?Re10/26/22 ?Status: DEP REF ? Location: HO.LNP ?Disch: ? ----- ------- SPEC : [id number] ?RECD: 10/27/22 ? STATUS: ??SOUT ? REQ NUM: [id number] ? CHET: 10/26/22-0 ? SUBM DR: Jovanni Byrd MD ? ENTERED: ??10/27/22 ?SP TYPE: Pap Smr ?OTHR DR: Shu Hurtado [employer]ER[employer] ? ORDERED: ??Pap Smear ? Interpretation ?? Satisfactory for evaluation. ?? Negative for intraepithelial lesion or malignancy. ?HPV mRNA E6/E7: ?NOT DETECTED ? This assay detects E6/E7 viral messenger RNA (mRNA) from 14 high-risk HPV types (16, 18, ?? 31, 33, 35, 39, 45, 51, 52, 56, 58, 59, 66, 68) ?? HPV testing performed by [facility], [place], [place]. ??See reference laboratory ?? pion of the EMR for entire report. ?Clinical Information LMP:Postmenopausal Previous PAP test:Unknown date/findings Other history:Polyp of the cervix uteri, amenorrhea unspecified, postcoital and contact bleeding ? Material Received ?? ThinPrep-Cervical Copies To: ?? Shu Hurtado [employer]ER[employer] ?? [address] [facility] ?? [place] [address] ?? [phone] ?? Jovanni Byrd MD ?? [address] [facility] [facility] ?? [place] [address] ?? [phone] ----- ------- Signed (signature on file) MARIA LUISA Cee (ASCP) 11/14/22 8497 ? ----- ------- ? END OF REPORT ? [facility] External Provider LAB CYT OLOGY ORDERABLES Final Result Performing Organization Address City/[facility] Care [facility]/ZIP Co de Phone Number [facility] [address] [place] [address] [phone] * HPV mRNA E6/E7 (10/07/2020 9:23 AM EDT) HPV nRNA E6/E7 Not Detected Not Detected [facility] Comment: Methodology: Paper And Pulp Mill Operator-Mediated Amplification This assay detects E6/E7 viral messenger RNA (mRNA) from 14 high-risk HPV types (16,18,31,33,35,39,45,51,52,56,58,59,66,68). ? The analytical performance characteristics of this assay have been determined by [facility]. The modifications have not been cleared or approved by the FDA. This assay has been validated pursuant to the CLIA regulations and is used for clinical purposes. ?? For additional information, please refer to http://education.[employer] Work[employer]/faq/JMR940f9 (This link if provided for information/ educational purposes only.) 10/07/2020 9:23 AM EDT Susy Espinoza MD LAB BLOOD ORDERABLES Final Re sult Performing Organization Address City/[facility] Care [facility] Co de Phone Number [facility] [address] from Last 3 Months or Most Recently Relevant to Health Maintenance Insurance [facility] MEDICAID LIMITED ADULT DENTAL - HSN FULL (MEDICAID) Care Teams Manager [place] Relationship Specialty Start Date End Date Shu Hurtado FNP [address] [place] [address] [place] [address] PCP - General Family Medicine 11/05/21 Hina Santos MD [address] [place] [address] Hematology and Oncology 03/09/24 Jovanni Byrd MD [address] [place] [address] [place] [phone] Obstetrics and Gynecology 03/09/24
--- OUTSIDE RECORDS SUMMARY | 2024-04-24 10:03 | XMS_ITS | Encounter Summary ---
Author Organization [employer] Address [address] [place] [address] 7 [place] [address] Care Team Providers Care Informatics Specialist Name Role Phone Shu Hurtado Primary Care Provider Hina Santos MD Unavailable [phone] Jovanni Byrd MD Unavailable Encounter Details Date Type Department Care Team (Late st Contact Info) Description 02/14/2022 Abstract [facility] [address] [place] [address] Provider, MD Samanta Social History Tobacco Use Types Packs/Day Years Used Date Smoking Tobacco: Never Assessed Comments Unknown Sex and Gender Information Value Date Recorded Sex Assigned at Female 01/09/2022 10:38 AM EDT Legal Sex Female 10:38 AM EDT Gender Identity Female 01/09/2022 10:38 AM EDT Sexual Orientation Straight 09/25/2023 11 :12 AM EDT documented as of this encounter Plan of Treatment Upcoming Encounters Date Type Department Care Team (Late st Contact Info) Description 05/14/2024 2:00 PM EST Office Visit [facility] ADULT DENTAL [address] [place] [address] Samara Corrales, DDS [address] [place] [address] documented as of this encounter Visit Diagnoses Not on filedocumented in this encounter Care Teams Informatics Specialist Relationship Specialty Start Date End Date Shu Hurtado FNP [address] [place] [address] PCP - General Family Medicine 11/05/21 Hina Santos MD [address] [place] [address] Hematology and Oncology 03/09/24 Jovanni Byrd MD [address] [place] [address] [place] [phone] Obstetrics and Gynecology 03/09/24 documented as of this encounter
--- OUTSIDE RECORDS SUMMARY | 2024-04-24 10:03 | XMS_ITS | Encounter Summary ---
Author Organization [employer] Address [address] [facility] 7t [place] [address] Care Team Providers Care X Ray Equipment Tester Name Role Phone Shu Hurtado Primary Care Provider [phone] Hina Santos MD Unavailable [phone] Jovanni Byrd MD Unavailable Reason for Visit * Reason Comments Med Change Request Encounter Details Date Type Department Care Team ([facility] Contact Info) Description 02/25/2024 Refill [facility] MED & PEDS [address] [place], [place] [phone] Shu Hurtado FNP [address] [place], [place] [phone] Social History Tobacco Use Types Packs/Day Years [...] Description 05/14/2024 2:00 PM EST Office Visit [facility] ADULT D[facility]AL [address] [place] [address] Samara Corrales DDS [address] [place] [address] documented as of this encounter Visit Diagnoses Not on filedocumented in this encounter Additional Health Concerns Assessment Noted Time PHQ-9 Depression Total Score: 5 02/25/20 24 3:31 PM EST documented as of this encounter Care Teams X Ray Equipment Tester Relationship Specialty Start Date End Date Shu Hurtado FNP [address] [place] [address] PCP - General Family Medicine 11/05/21 Hina Santos MD [address] [place] [address] Hematology and Oncology 03/09/24 Jovanni Byrd MD [address] [place] [phone] Obstetrics and Gynecology 03/09/24 documented as of this encounter
== END 2024-04-24 10:12 | disposition home or self-care (01) ==
PROVIDERS: PCP Registered Nurse; Referring Provider Registered Nurse; Visit Provider Surgery
DX: D17.22 Benign lipomatous neoplasm of skin and subcutaneous tissue of left arm (principal)
CPT/HCPCS: 99204

== ENCOUNTER → 2024-04-24 09:33 | Outpatient (BNVA) | payer OTHER, SELFPAY | PROVIDERS: PCP Registered Nurse; Referring Provider Registered Nurse; Visit Provider Surgery | DX: D17.22 Benign lipomatous neoplasm of skin and subcutaneous tissue of left arm (principal) | CPT/HCPCS: 99202 ==

== ENCOUNTER 2024-05-08 08:46 | Outpatient (RCR) | payer OTHER, SELFPAY ==
--- NOTE | 2024-04-23 13:06 | MHC.PT.EP ---
[facility] [place] Office [place] [facility] [place] [facility] [address] [phone] F: [phone] F: [phone] F: [phone] F: [phone] Physical Therapy Plan of Care Date of Evaluation: 04/23/24 Date of Surgery: Diagnosis: bursitis of left shoulder radiculopathy of cervical region Assessment: 49 y/o R-hand dominant female referred to PT with L shoulder bursitis and cervical radiculopathy. Reports pain and difficulty with reaching, lifting, cleaning, sleeping, and grooming. Examination shows pain, decreased L shoulder ROM, decreased L scapular strength, lipoma, cervical ROM WFL, and impaired postural awareness. Pt has MD appointment regarding potential lipoma removal tomorrow. Recommend PT 2x/week for 5 weeks to address impairments, implement HEP, and optimize functional mobility. She can only come 1x/week d/t work [employer] Frequency and Duration: The patient will be seen 1x/week for 6 weeks Short Term Goals: 3 weeks I with HEP Jail Goals: 6 weeks I with HEp and self management of sx Pt will be able to reach into overhead cabinets with pain < 3/10 Pt will be able to reach behind back with pain < 3/10 Treatment Plan: Modalities to reduce pain, spasms and effusion. Manual therapy to restore motion and function. Therapeutic exercise to improve strength and flexibility. Neuromuscular re-education for posture and balance. Therapeutic activities to return to functional activities of daily living. Electronically signed by: Valencia Singletary PT Please sign and return to therapist. Thank you for your referral.
--- NOTE | 2024-09-29 14:39 | MHC.PT.DC ---
[facility] [place] Office [place] Office [place] [facility] [address] [place] [address] [phone] F: [phone] F: [phone] F: [phone] F: [phone] Physical Therapy Discharge Report Diagnosis: bursitis of left shoulder radiculopathy of cervical region Date of Surgery: Date of Evaluation: 04/23/24 Date of Discharge: 09/29/24 Treatments to Date: 3 Cancellations to Date: 2 No Shows to Date: 1 Discharge Status: Independent with HEP Visit Non-compliance Discharge Summary: Pt did not f/u with further visits and is at this time d/c to I HEp Electronically signed by: Valencia Singletary PT Please sign and return to therapist. Thank you for your referral.
== END 2024-09-29 14:39 | disposition home or self-care (01) ==
LOC: HO.PT 08:46
PROVIDERS: PCP Registered Nurse; Visit Provider Physician Assistant
DX: M75.52 Bursitis of left shoulder (principal); M54.12 Radiculopathy, cervical region
CPT/HCPCS: 97110; 97161

== ENCOUNTER 2024-05-23 12:47 | Outpatient (REF) | payer OTHER, SELFPAY ==
--- NOTE | 2024-05-23 12:50 | EMG_ITS ---
Chief complaint: Left shoulder pain and numbness in ulnar distribution Reason for referral: Evaluate for ulnar neuropathy Procedure done: Left upper extremity NCS/EMG Precautions and/or limitations: None The limb temperature was monitored continuously and remained between 32-36 degrees C during the performance of the NCS. Nerve Conduction Studies Anti Sensory Summary Table ?Stim Site NR Onset (ms) Norm Onset (ms) Peak (ms) Norm Peak (ms) O-P Amp (?V) Norm O-P Amp Site1 Site2 Delta-0 (ms) Dist (cm) Allen (m/s) Norm Allen (m/s) Left Median Anti Sensory (2nd Digit) Wrist ? 2.3 2.9 <3.6 61.6 >10 Wrist 2nd Digit 2.3 14.0 61 Left Radial Anti Sensory (Thumb) Forearm ? 1.4 2.0 <3.1 29.5 Forearm Thumb 1.4 0.0 Left Ulnar Anti Sensory (5th Digit) Wrist ? 2.2 2.9 <3.7 43.5 >15.0 Wrist 5th Digit 2.2 14.0 64 Motor Summary Table ?Stim Site NR Onset (ms) Norm Onset (ms) O-P Amp (mV) Norm O-P Amp iAmp (mV) Amp (1st) (%) Site1 Site2 Delta-0 (ms) Dist (cm) Allen (m/s) Norm Allen (m/s) Left Median Motor (Abd Poll Brev) Wrist ? 2.7 <3.9 11.6 >4.5 14.0 100.0 Elbow Wrist 3.2 17.5 55 >45 Elbow ? 5.9 10.1 12.1 87.1 Left Ulnar Motor (Abd Dig Minimi) Wrist ? 2.0 <3.0 7.0 >5 8.3 100.0 B Elbow Wrist 3.1 17.0 55 >45 B Elbow ? 5.1 7.0 8.1 100.0 A Elbow B Elbow 1.4 10.0 71 >45 A Elbow ? 6.5 7.0 8.1 100.0 EMG ?Side Muscle Nerve Root Ins Act Fibs Psw Amp Dur Poly Recrt Int Pat Comment Left 1stDorInt Ulnar C8-T1 Nml Nml Nml Nml Nml 0 Nml Complete Left FlexCarRad Median C6-7 Nml Nml Nml Nml Nml 0 Nml Complete Left Biceps Musculocut C5-6 Nml Nml Nml Nml Nml 0 Nml Complete Left Triceps Radial C6-7-8 Nml Nml Nml Nml Nml 0 Nml Complete Left Deltoid Axillary C5-6 Nml Nml Nml Nml Nml 0 Nml Complete FINDINGS: All motor and sensory nerves tested showed normal latencies, amplitudes and conduction velocities. Concentric needle EMG was performed in selected muscles of the left upper extremity. Study did not reveal signs of electric abnormalities as shown in the table above. IMPRESSION: 1. This is a normal study. 2. There is no electrodiagnostic evidence for median neuropathy, ulnar neuropathy, brachial plexopathy, or cervical radiculopathy. Thank you for your kind referral. Radha Watts MD, ROSELINE Board Certified, [place] Board [employer] Physical Medicine and Rehabilitation (ABPMR) Board Certified, [place] Board of Electrodiagnostic Medicine (ABEM) CODIN [id number] MTDD
--- OUTSIDE RECORDS SUMMARY | 2024-05-23 14:20 | XMS_ITS | Encounter Summary ---
Author Organization [employer] Address [address] [facility] [address] [place] [address] Care Team Providers Care Tile Machine Operator Name Role Phone Shu Hurtado Primary Care Provider [phone] Hina Santos MD Unavailable Jovanni Byrd MD Unavailable Reason for Visit * Reason Comments Med Change Request Encounter Details Date Type Department Care Team ([facility] Contact Info) Description 02/25/2024 Refill [facility] MED & PEDS [address] [place], [place] [phone] Shu Hurtado FNP [address] [place], [place] [phone] Social History Tobacco Use Types Packs/Day Years [...] documented as of this encounter Care Teams Tile Machine Operator Relationship Specialty Start Date End Date Shu Hurtado FNP [address] [place] [address] PCP - General Family Medicine 11/05/21 Hina Santos MD [address] [place] [address] Hematology and Oncology 03/09/24 Jovanni Byrd MD [address] [place] [address] Obstetrics and Gynecology 03/09/24 documented as of this encounter
--- OUTSIDE RECORDS SUMMARY | 2024-05-23 14:20 | XMS_ITS | Encounter Summary ---
Author Organization [employer] Address [address] [place] [address] [place] [address] Care Team Providers Care Management Tech Name Role Phone Shu Hurtado Primary Care Provider [phone] Hina Santos MD Unavailable [phone] Jovanni Byrd MD Unavailable Encounter Details Date Type Department Care Team (Late st Contact Info) Description 02/14/2022 Abstract [facility] [address] [place] [address] ProviderSamanta MD Social History Tobacco Use Types [...] on filedocumented in this encounter Care Teams Management Tech Relationship Specialty Start Date End Date Shu Hurtado FNP [address] [place] [address] PCP - General Family Medicine 11/05/21 Hina Santos MD [address] [place] [address] Hematology and Oncology 03/09/24 Jovanni Byrd MD [address] [place] [address] Obstetrics and Gynecology 03/09/24 documented as of this encounter
--- OUTSIDE RECORDS SUMMARY | 2024-05-23 14:20 | XMS_ITS | Clinical Summary ---
Author Organization [employer] Address [address] [facility] [address] [place] [address] Care Team Providers Care Plastic Sewer Name Role Phone AlyssaShu campbell BLOSSOM Primary Care Provider [phone] Hina Santos MD Unavailable Jovanni Byrd MD Unavailable Allergies Active Allergy [...] referral after two low readings. Following with [facility] Heme/Onc. Consult in August 2023 with suspicion of leukopenia r/t UTI or viral infection. Plan to monitor in 6 months. Assessment & Plan (09/21/2023 3:33 PM EDT): -Initial referral after two low readings. Following with [facility] Heme/Onc. Consult in August 2023 with suspicion of leukopenia r/t UTI or viral infection. Plan to monitor in 6 months. PCB (post coital bleeding) 03/16/2023 Overview (06/17/2023): 10/26/22: [facility] BOOK OR SCRIPT EDITOR Dr. Byrd - visit for post-coital bleeding. Biopsy of the endocervical polyp. Pathology: Cervix, polyp, biopsy: Small fragment of squamous mucosa within normal limits; negative for a squamous intraepithelial lesion. Assessment & Plan (03/09/2024 10:24 PM EST): Denies PCB since, follow up with [facility] BOOK OR SCRIPT EDITOR as scheduled Assessment & Plan (06/17/2023 10:54 AM EDT): Denies PCB since, follow up with [facility] BOOK OR SCRIPT EDITOR as scheduled Primary hypertension 07/19/2022 Assessment & [...] Type Department Care Team Description 03/14/2024 Telephone [facility] [address] [place] [address] Shu Hurtado FNP 03/14/2024 Telephone [facility] [address] [place] [address] Quita Fontana, RN Results 02/25/2024 1:15 PM EST Office Visit [facility] [address] [place] [address] Shu Hurtado FNP Physical exam (Primary Dx); Routine health maintenance; Pain and swelling of left shoulder; Onychauxis; PCB (post coital bleeding); Primary hypertension; Other neutropenia (CMS/HCC); Sleep difficulties 02/25/2024 Refill [facility] [address] [place] [address] Shu Hurtado FNP 02/25/2024 Travel from Last 3 Months Immunizations Name Administration [...] Dental Prophylaxis 06/20/2024 12/20/2023 Mammogram 11/18/2024 11/19/2023, 0 08/2022, 11/08/2021, Additional history exists Tobacco Screening [...] 02/28/2024 10:40 AM EST Routine health maintenance PROPHYLAXIS - ADULT Routine 12/20/2023 9 :00 [...] EST) CT PCR NOT DETECTED Not Detect. [facility] Comment:A not detected test result [...] psychologicalconsequences. NG PCR NOT DETECTED Not Detect. [facility] Comment:A not detected test result [...] AM EST 02/28/2024 2:14 PM EST Narrative [facility] - 02/28/2024 5:32 PM EST Urine Shu Hurtado [facility] MICROBIOLOGY - GENERAL ORD ERABLES Final Result Performing Organization Address [facility] Co de Phone Number [facility] [address] [place] [phone] * TSH with Reflex to Free T4 (02/28/2024 10:40 AM EST) Pathologist [facility] TSH reflex Free T4 1.18 0.32 - 4.0 uIU/mL [facility] Blood 02/28/2024 10:4 0 AM EST 02/28/2024 2:28 PM EST Shu Hurtado [facility] BLOOD ORDERABLES Final Res ult Performing Organization Address [facility] Co de Phone Number [facility] [address] [place] [phone] * Hepatitis C Viral RNA, Quantitative, Real-Time PCR (02/28/2024 10:40 AM EST) [facility] Hepatitis C Viral Load <15 NOT DETECTED NOT DETECTED IU/mL [facility] HCV Log PCR <1.18 NOT DETECTED NOT DETECTED Log IU/mL [facility] Comment:For additional infor caron, please refer tohttp://education.[employer]/faq/WDT04s0(This link is being provided for informational/educational purposes only.)THIS TEST WAS PERFORMED AT:[facility] [place] [phone] JUAN MD Blood 02/28/2024 10:4 0 AM EST 02/28/2024 2:22 PM EST Shu Hurtado [facility] BLOOD ORDERABLES Final Res ult Performing Organization Address [facility] Co de Phone Number [facility] [address] [place] [phone] * (ABNORMAL) CBC auto differential (02/28/2024 10:40 AM EST) White Blood Count 3.2(L) 4.8 - 10.8 X10*3/uL [facility] Red Blood Count 4.13(L) 4.20 - 5.50 X10*6/uL [facility] Hemoglobin 12.4 12.0 - 16.0 g/dl [facility] Hematocrit 36.9(L) 37.0 - 47.0 % [facility] Mean Corpuscular Volume 89.3 80.0 - 98.0 fL [facility] Mean Corpuscular Hemoglobin 30.0 27.0 - 33.0 pg [facility] Mean Corpuscular HGB Conc 33.6 31.0 - 35.0 g/dl [facility] Red Cell Distribution Width 14.5 11.0 - 16.0 % [facility] Platelet Count 293 160 - 400 X10*3/uL [facility] Mean Platelet Volume 10.7 9.4 - 12.3 fL [facility] Neutrophils Percent Auto 39.2(L) 45 - 73 % [facility] Imm Gran Pct Auto 0.3 0.0 - 0.4 % [facility] Lymphocytes Percent Auto 44.8(H) 20 - 40 % [facility] Monocytes Percent Auto 12.6(H) 2 - 11 % [facility] Eosinophils Percent Auto 2.2 0 - 4 % [facility] Basophils Percent Auto 0.9 0 - 2 % [facility] NRBC Pct Auto 0.0 0.0 - 0.2 /100WBC [facility] Neutrophils Absolute Auto 1.2(L) 2.0 - 8.3 x10*3/uL [facility] Imm Gran Abs Auto 0.01 0.00 - 0.03 X10*3/uL [facility] Lymphocytes Absolute Auto 1.4 1.2 - 4.9 X10*3/uL [facility] Monocytes Absolute Auto 0.4 0.1 - 1.2 X10*3/uL [facility] Eosinophils Absolute Auto 0.1 0.0 - 0.4 X10*3/uL [facility] Basophils Absolute Auto 0.0 0.0 - 0.2 X10*3/uL [facility] NRBC Abs Auto 0.000 0.0 - 0.012 X10*3/uL [facility] Blood Venous blood specimen / Unknown 02/28/2024 10:40 AM EST 02/28/2024 2:22 PM EST us Shu Hurtado TELEVISION TUBE INSPECTOR LAB BLOOD ORDERABLES Final Res ult Performing Organization Address [facility] Co de Phone Number [facility] [address] [place] [phone] * RPR (Monitor) with Reflex to??Titer (02/28/2024 10:40 AM EST) RPR (Monitor) w/Refl Titer NON-REACTI VE NON-REACT RICCARDO [facility] Comment:THIS TEST WAS PERFOR MED AT:[facility] [place] [phone] JUAN MD Rapid Plasma Reagin Ab Titer TNP [facility] Blood Venous blood specimen / Unknown 02/28/2024 10:40 AM EST 02/28/2024 2:22 PM EST us Shu Hurtado [facility] BLOOD ORDERABLES Final Res ult Performing Organization Address [facility] de Phone Number [facility] [address] [place] [phone] * HIV-1/2 Antigen and Antibodies, Fourth Generation, with Reflexes (02/28/2024 10:40 AM EST) HIV AB/AG Nonreactive Nonreactive [facility] Comment:HIV-1 p24 Ag and/or HIV-1/HIV-2 Ab not detected.A test result that is nonreactive does not exclude thepossibility of exposure to or infection with HIV-1 and/orHIV-2. Nonreactive results in this assay for individualswith prior exposure to HIV-1 and/or HIV-2 may be due toantigen and antibody levels that are below the limit ofdetection of this assay.The [employer] HIV Ag/Ab Combo assay result andsupplemental assay results should be interpreted inconjunction with the patient's clinical presentation,history and other laboratory results. If the results areinconsistent with clinical evidence, additional testing issuggested to confirm the result. Blood Venous blood specimen / Unknown 02/28/2024 10:40 AM EST 02/28/2024 2:28 PM EST Shu Hurtado [facility] BLOOD ORDERABLES Final Res ult Performing Organization Address [facility] Co de Phone Number [facility] [address] [place] [address] [phone] * Hemoglobin A1c (02/28/2024 10:40 AM EST) Hemoglobin A1c 5.3 <6.0 % [facility] Comment:Hemoglobin A1C Refer ence Range Adults: 4.8 - 6.0 % Non diabetic: < 6.0 % Goal: < 7.0 %Additional Action Suggested: > 8.0 %Note: Hemoglobin A1c results are invalid for patients with abnormal amounts of HbF. Blood transfusions may impact the HbA1c concentration in the patient sample. Estimated Average Glucose 105 mg/dL [facility] Comment:eAG = Estimated ave rage glucose which is %A1C expressed asaverage glucose, using the formula of the U4M-LtdzyesFibwcck Glucose study (ADAG), Diabetes Care, Vol.31,#8,Oct. 2007 Blood Venous blood specimen / Unknown 02/28/2024 10:40 AM EST 02/28/2024 2:22 PM EST Shu Hurtado [facility] BLOOD ORDERABLES Final Res ult Performing Organization Address [facility] Co de Phone Number [facility] [address] [place] [phone] * (ABNORMAL) Lipid Panel, Standard (02/28/2024 10:40 AM EST) Triglycerides 73 <150 mg/dL [facility] Comment:Desirable Triglyceri de: less than 150 mg/dLBorderline High Triglyceride 150-199 mg/dLHigh Triglyceride: 200-499 mg/dLVery High Triglyceride: greater than or equal to 5OO mg/dL Cholesterol 234(H) <200 mg/dL [facility] Comment:Desirable Cholestero l: less than 200 mg/dLBorderline High Cholesterol: 200-239 mg/dLHigh Cholesterol: greater than 239 mg/dL LDL Cholesterol Calculated 137(H) <100 mg/dL [facility] Comment:Desirable LDL: less than 100 mg/dLNear Optimal/Above Optimal LDL: 110- 129 mg/dLBorderline High LDL: 130-159 mg/dLHigh LDL: 160-189 mg/dLVery High LDL: greater than or equal to 190 mg/dL HDL Cholesterol 83 >40 mg/dL [facility] Comment:Desirable HDL: great er than 40 mg/dL Note: This HDL assay may give artificially low results in patients with liver disease. Blood Venous blood specimen / Unknown 02/28/2024 10:40 AM EST 02/28/2024 2:28 PM EST us Shu Hurtado TELEVISION TUBE INSPECTOR LAB BLOOD ORDERABLES Final Res ult [facility] [address] [place] [phone] * (ABNORMAL) Comprehensive Metabolic Panel (02/28/2024 10:40 AM EST) Sodium 142 135 - 145 mmol/L [facility] Potassium 4.3 3.3 - 5.1 mmol/L [facility] Chloride 111(H) 96 - 108 mmol/L [facility] Carbon Dioxide 28 22 - 29 mmol/L [facility] Anion Gap 7(L) 12 - 20 [facility] Urea Nitrogen (BUN) 12 9 - 16 mg/dL [facility] Creatinine, Serum 0.71 0.5 - 1.4 mg/dL [facility] Estimated Glomerular Filt Rate >60 [facility] Comment:Chronic Kidney Disea se: Estimated GFR < 60 mL/min/1.93q4Qyaaxi Kidney Disease: Estimated GFR < 15 mL/min/1.73m2 Glucose 89 60 - 115 mg/dL [facility] Calcium 9.0 8.4 - 10.2 mg/dL [facility] Bilirubin, Total 0.5 0.0 - 1.0 mg/dL [facility] Aspartate Amino Transferase 24 5 - 31 U/L [facility] Alanine Aminotransferase 21 0 - 31 U/L [facility] Total Protein 7.6 6.5 - 8.0 g/dL [facility] Albumin Level 4.1 3.5 - 5.0 g/dL [facility] Alkaline Phosphatase 79 39 - 117 U/L [facility] Blood Venous blood specimen / Unknown 02/28/2024 10:40 AM EST 02/28/2024 2:28 PM EST Shu Hurtado TELEVISION TUBE INSPECTOR LAB BLOOD ORDERABLES Final Res ult [facility] [address] [place] [phone] * BI Mammogram Screening Tomosynthesis Bilateral (11/19/2023 8:55 AM EDT) Anatomical Region Laterality Modality Breast Bilateral Mammography 11/19/2023 8:55 AM EDT Narrative 12/03/2023 5:55 PM EDT ? [facility] [place] ? [address] ?[place] [address] ? Mammography Report ? Signed ? Patient: Vadim,Nati ?MR#: [id number] ?? 003 ? : 1975 ?Acct:[id number] ? Age/Sex: 48 / F ?ADM Date: 09/09/24 ? Loc: HO.MAMMO ? Attending Dr: Shu Hurtado TELEVISION TUBE INSPECTOR ? Ordering Physician: Shu Hurtado ?Results: 1Negat ?? riccardo ? Date of Service: 11/19/23 ?Follow Up: 1 Year From Orig ?? inal Mammogram ? Procedure(s): MM tomosynthesis screening BI ?? Accession Number(s): [id number] ? cc: Shu Hurtado TELEVISION TUBE INSPECTOR ? EXAMINATION: ?? MM SCREENING DIGITAL BREAST [...] ??Bea Castellano DO ??12/03/2023 05:52 PM EDT ?? RP ? Dictated By: ?Bea Castellano DO ? Signed By: ?<Electronically signed by Bae Castellano, DO in OV> ? 12/03/23 1752 ? DD/ 0855 ? TD/TT: 11/19/23 0915 ? Mobile Service Rv Technician: ? Procedure Note Christian, Image - 12/03/2023 [facility] [address] [place] [address] Mammography Report Signed Patient: Suzanne Fierro#: [id number] 003 : 1975Acct:[id number] Age/Sex: 48 / FADM Date: 11/19/23 Loc: HO.MAMMO Attending Dr: Shu Hurtado TELEVISION TUBE INSPECTOR Ordering Physician: Shu HurtadoPResults: 1Negat riccardo Date of Service: 11/19/23Follow Up: 1 Year From Orig inal Mammogram Procedure(s): MM tomosynthesis screening BI Accession Number(s): [id number] cc: Shu Hurtado TELEVISION TUBE INSPECTOR EXAMINATION: MM SCREENING DIGITAL BREAST TOMOSYNTHESIS, BILATERAL [...] DO Signed By: <Electronically signed by Bea Csatellano DO in OV> 12/03/23 1752 DD/ 4 TD/TT: 11/19/23914 Mobile Service Rv Technician: us Shu Hurtado TELEVISION TUBE INSPECTOR IMG BI PROCEDURES Final Result * Pap Smear (10/26/2022 10:10 AM EDT) 10/26/2022 10:1 0 AM EDT 10/27/2022 9:00 AM EDT [facility] - 11/14/2022 9:40 AM EDT ----- ------- Name: Nati Fierro ?Age/Sex: 47/F ? : 1975 Unit#: [id number] ?? Attend Dr: Jovanni Byrd MD ?Re10/26/22 ?Status: DEP REF ? Location: HO.LNP ?Disch: ? ----- ------- SPEC : [id number] ?RECD: 10/27/22-899 ? STATUS: ??SOUT ? REQ NUM: [id number] ? CHET: 10/26/22-1010 ? SUBM DR: Jovanni Byrd MD ? ENTERED: ??10/27/22 ?SP TYPE: Pap Smr ?OTHR DR: Shu HurtadoP ? ORDERED: ??Pap Smear ? Interpretation ?? Satisfactory for evaluation. ?? Negative for intraepithelial lesion or malignancy. ?HPV mRNA E6/E7: ?NOT DETECTED ? This assay detects E6/E7 viral messenger RNA (mRNA) from 14 high-risk HPV types (16, 18, ?? 31, 33, 35, 39, 45, 51, 52, 56, 58, 59, 66, 68) ?? HPV testing performed by [facility], [place], [place]. ??See reference laboratory ?? pion of the EMR for entire report. ?Clinical Information LMP:Postmenopausal Previous PAP test:Unknown date/findings Other history:Polyp of the cervix uteri, amenorrhea unspecified, postcoital and contact bleeding ? Material Received ?? ThinPrep-Cervical Copies To: ?? Shu Hurtado ?? [address] ?? [place] [address] ?? [phone] ?? Jovanni Byrd MD ?? [address] ?? [place] [address] ?? [phone] ----- ------- Signed (signature on file) MARIA LUISA Cee ([facility]) 11/14/22 0940 ? ----- ------- ? END OF REPORT ? [facility] External Provider LAB [facility] ORDERABLES Final Result [facility] [address] [place] [phone] * HPV mRNA E6/E7 (10/07/2020 9:23 AM EDT) HPV nRNA E6/E7 Not Detected Not Detected [facility] Comment: Methodology: Wealth Management Director-Mediated Amplification This assay detects E6/E7 viral messenger RNA (mRNA) from 14 high-risk HPV types (16,18,31,33,35,39,45,51,52,56,58,59,66,68). ? The analytical performance characteristics of this assay have been determined by [facility]. The modifications have not been cleared or approved by the FDA. This assay has been validated pursuant to the CLIA regulations and is used for clinical purposes. ?? For additional information, please refer to http://education.[employer]/faq/RLZ865m2 (This link if provided for information/ educational purposes only.) 10/07/2020 9:23 AM EDT us Susy Espinoza MD LAB BLOOD ORDERABLES Final Re sult [facility] [address] [place] [phone], from Last 3 Months or Most Recently Relevant to Health Maintenance Insurance [facility] MEDICAID LIMITED ADULT DENTAL - N FULL (MEDICAID) * Guarantor: Nati Fierro Account Type Relation to Patient Date of Phone Billing Address Personal/Family Self [address] [place] Care Teams Plastic Sewer Relationship Specialty Start Date End Date Shu Hurtado FNP [address] [place] [phone] PCP - General Family Medicine 11/05/21 Hina Santos MD [address] [place] [phone] Hematology and Oncology 03/09/24 Jovanni Byrd MD [address] [place] [phone] Obstetrics and Gynecology 03/09/24
== END 2024-05-23 12:48 | disposition home or self-care (01) ==
LOC: HO.NEURO 12:47
PROVIDERS: PCP Registered Nurse; Visit Provider Physical Medicine & Rehabilitation
DX: G56.22 Lesion of ulnar nerve, left upper limb (principal)
CPT/HCPCS: 95886; 95909

== ENCOUNTER → 2024-05-23 12:50 | Outpatient (BNV) | payer OTHER, SELFPAY | PROVIDERS: PCP Registered Nurse; Visit Provider Physical Medicine & Rehabilitation | DX: R20.0 Anesthesia of skin (principal); R20.2 Paresthesia of skin; M25.512 Pain in left shoulder | CPT/HCPCS: 95886; 95909 ==

== ENCOUNTER 2024-06-04 07:28 | Day surgery (SDC) | payer OTHER, SELFPAY ==
--- OUTSIDE RECORDS SUMMARY | 2024-05-01 12:18 | XMS_ITS | Encounter Summary ---
Author Organization [employer] Address [address] [facility] 7t [place] [address] Care Team Providers Care Water Tanker Driver Name Role Phone Shu Hurtado Primary Care Provider [phone] Hina Santos MD Unavailable [phone] Jovanni Byrd MD Unavailable Reason for Visit * Reason Comments Med Change Request Encounter Details Date Type Department Care Team ([facility] Contact Info) Description 02/25/2024 Refill [facility] MED & PEDS [address] [place], [place] [phone] Shu Hurtado FNP [address] [place], [place] [phone] Social History Tobacco Use Types Packs/Day Years [...] 05/14/2024 2:00 PM EST Office Visit [facility] ADULT DENT[facility] [address] [place] [address] Samara Corrales DDS [address] [place] [address] documented as of this encounter Visit Diagnoses Not on filedocumented in this encounter Additional Health Concerns Assessment Noted Time PHQ-9 Depression Total Score: 5 02/25/20 24 3:31 PM EST documented as of this encounter Care Teams Water Tanker Driver Relationship Specialty Start Date End Date Shu Hurtado FNP [address] [place] [address] PCP - General Family Medicine 11/05/21 Hina Santos MD [address] [place] [address] Hematology and Oncology 03/09/24 Jovanni Byrd MD [address] [place] [address] Obstetrics and Gynecology 03/09/24 documented as of this encounter
--- OUTSIDE RECORDS SUMMARY | 2024-05-01 12:19 | XMS_ITS | Encounter Summary ---
Author Organization [employer] Address [address] [place] [address] 7 [place] [address] Care Team Providers Care Stock Feeder Name Role Phone Shu Hurtado Primary Care Provider Hina Santos MD Unavailable [phone] Jovanni Byrd MD Unavailable Encounter Details Date Type Department Care Team (Late st Contact Info) Description 02/14/2022 Abstract [facility] MEDICINE [address] [place] [address] Provider, MD Samanta Social History Tobacco Use [...] Description 05/14/2024 2:00 PM EST Office Visit [facility] ADULT DENTAL [address] [place] [address] Samara Corrales, DDS [address] [place] [address] documented as of this encounter Visit Diagnoses Not on filedocumented in this encounter Care Teams Stock Feeder Relationship Specialty Start Date End Date Shu Hurtado FNP [address] [place] [address] PCP - General Family Medicine 11/05/21 Hina Santos MD [address] [place] [phone] Hematology and Oncology 03/09/24 Jovanni Byrd MD [address] [place] [address] [place] [phone] Obstetrics and Gynecology 03/09/24 documented as of this encounter
--- OUTSIDE RECORDS SUMMARY | 2024-05-01 12:19 | XMS_ITS | Clinical Summary ---
Author Organization [employer] Address [address] [facility] 7t [place] [address] Care Team Providers Care Case Briefer Name Role Phone AlyssaShu campbell BLOSSOM Primary Care Provider [phone] Hina Santos MD Unavailable [phone] Jovanni Byrd MD Unavailable Allergies Active [...] referral after two low readings. Following with [facility] Heme/Onc. Consult in August 2023 with suspicion of leukopenia r/t UTI or viral infection. Plan to monitor in 6 months. Assessment & Plan (09/21/2023 3:33 PM EDT): -Initial referral after two low readings. Following with [facility] Heme/Onc. Consult in August 2023 with suspicion of leukopenia r/t UTI or viral infection. Plan to monitor in 6 months. PCB (post coital bleeding) 03/16/2023 Overview (06/17/2023): 10/26/22: [facility] OPERATING ROOM ASSISTANT Dr. Byrd - visit for post-coital bleeding. Biopsy of the endocervical polyp. Pathology: Cervix, polyp, biopsy: Small fragment of squamous mucosa within normal limits; negative for a squamous intraepithelial lesion. Assessment & Plan (03/09/2024 10:24 PM EST): Denies PCB since, follow up with [facility] OPERATING ROOM ASSISTANT as scheduled Assessment & Plan (06/17/2023 10:54 AM EDT): Denies PCB since, follow up with [facility] OPERATING ROOM ASSISTANT as scheduled Primary hypertension 07/19/2022 Assessment [...] Type Department Care Team Description 03/14/2024 Telephone [facility] [address] [place] [address] Shu Hurtado FNP 03/14/2024 Telephone [facility] MED & PEDS [address] [place] [address] Quita Fontana, RN Results 02/25/2024 1:15 PM EST Office Visit [facility] MED & PEDS [address] [place] [address] Shu Hurtado FNP Physical exam (Primary Dx); Routine health maintenance; Pain and swelling of left shoulder; Onychauxis; PCB (post coital bleeding); Primary hypertension; Other neutropenia (CMS/HCC); Sleep difficulties 02/25/2024 Refill [facility] MED & PEDS [address] [place] [address] Shu Hurtado FNP 02/25/2024 Travel 02/21/2024 Telephone [facility] MED & PEDS [address] [place] [address] Gucci German [place] Chart Prep 02/19/2024 Patient Outreach [facility] MED & PEDS [address] [place] [address] Shu Hurtado FNP Pre-visit Planning (SDOH negative, Tobacco screening negative. ) 02/14/2024 11:00 AM EST Office Visit [facility] ADULT DENTAL [address] [place] [address] Samara Corrales DDS from Last 3 Months [...] Description 05/14/2024 2:00 PM EST Office Visit [facility] ADULT DENTAL [address] [place] [address] Samara Corrales, MARSHAL [address] [place] [address] Health Maintenance Due Date Last Done Comments [...] TMA, Urogenitial (02/28/2024 10:46 AM EST) Pathologist [facility] CT PCR NOT DETECTED Not Detect. [facility] Comment:A not detected test result [...] psychologicalconsequences. NG PCR NOT DETECTED Not Detect. [facility] Comment:A not detected test result [...] AM EST 02/28/2024 2:14 PM EST Narrative [facility] - 02/28/2024 5:32 PM EST Urine Shu JobSlotadrian [facility] MICROBIOLOGY - GENERAL ORD ERABLES Final Result Performing Organization Address [facility]/ZIP Co de Phone Number [facility] [address] [place] [phone] * TSH with Reflex to Free T4 (02/28/2024 10:40 AM EST) TSH reflex Free T4 1.18 0.32 - 4.0 uIU/mL [facility] Blood 02/28/2024 10:4 0 AM EST 02/28/2024 2:28 PM EST Shu JobSlotadrian [facility] BLOOD ORDERABLES Final Res ult Performing Organization Address City/[facility]/ZIP Co de Phone Number [facility] [address] [place] [phone] * Hepatitis C Viral RNA, Quantitative, Real-Time PCR (02/28/2024 10:40 AM EST) Pathologist [facility] Emergency Department Hepatitis C Viral Load <15 NOT DETECTED NOT DETECTED IU/mL [facility] HCV Log PCR <1.18 NOT DETECTED NOT DETECTED Log IU/mL [facility] Comment:For additional infor mation, please refer tohttp://education.[employer]/faq/PLK58o4(This link is being provided for informational/educational purposes only.)THIS TEST WAS PERFORMED AT:[facility] [place] [phone] JUAN MD Blood 02/28/2024 10:4 0 AM EST 02/28/2024 2:22 PM EST Shu Hurtado COMMERCIAL LOAN SPECIALIST LAB BLOOD ORDERABLES Final Res ult [facility] [address] [place] [phone] * (ABNORMAL) CBC auto differential (02/28/2024 10:40 AM EST) Pathologist [facility] Emergency Department White Blood Count 3.2(L) 4.8 - 10.8 X10*3/uL [facility] Red Blood Count 4.13(L) 4.20 - 5.50 X10*6/uL [facility] Hemoglobin 12.4 12.0 - 16.0 g/dl [facility] Hematocrit 36.9(L) 37.0 - 47.0 % [facility] Mean Corpuscular Volume 89.3 80.0 - 98.0 fL [facility] Mean Corpuscular Hemoglobin 30.0 27.0 - 33.0 pg [facility] Mean Corpuscular HGB Conc 33.6 31.0 - 35.0 g/dl [facility] Red Cell Distribution Width 14.5 11.0 - 16.0 % [facility] Platelet Count 293 160 - 400 X10*3/uL [facility] Mean Platelet Volume 10.7 9.4 - 12.3 fL [facility] Neutrophils Percent Auto 39.2(L) 45 - 73 % [facility] Imm Gran Pct Auto 0.3 0.0 - 0.4 % [facility] Lymphocytes Percent Auto 44.8(H) 20 - 40 % [facility] Monocytes Percent Auto 12.6(H) 2 - 11 % [facility] Eosinophils Percent Auto 2.2 0 - 4 % [facility] Basophils Percent Auto 0.9 0 - 2 % [facility] NRBC Pct Auto 0.0 0.0 - 0.2 /100WBC [facility] Neutrophils Absolute Auto 1.2(L) 2.0 - 8.3 x10*3/uL [facility] Imm Gran Abs Auto 0.01 0.00 - 0.03 X10*3/uL [facility] Lymphocytes Absolute Auto 1.4 1.2 - 4.9 X10*3/uL [facility] Monocytes Absolute Auto 0.4 0.1 - 1.2 X10*3/uL [facility] Eosinophils Absolute Auto 0.1 0.0 - 0.4 X10*3/uL [facility] Basophils Absolute Auto 0.0 0.0 - 0.2 X10*3/uL [facility] NRBC Abs Auto 0.000 0.0 - 0.012 X10*3/uL [facility] Blood Venous blood specimen / Unknown 02/28/2024 10:40 AM EST 02/28/2024 2:22 PM EST us Shu Hurtado COMMERCIAL LOAN SPECIALIST LAB BLOOD ORDERABLES Final Res ult [facility] [address] [place], [place] [phone] * RPR (Monitor) with Reflex to??Titer (02/28/2024 10:40 AM EST) RPR (Monitor) w/Refl Titer NON-REACTI VE NON-REACT RICCARDO [facility] Comment:THIS TEST WAS PERFOR MED AT:[facility] [place] [phone] JUAN MD Rapid Plasma Reagin Ab Titer TNP [facility] Blood Venous blood specimen / Unknown 02/28/2024 10:40 AM EST 02/28/2024 2:22 PM EST us Shu Hurtado [facility] BLOOD ORDERABLES Final Res ult Performing Organization Address City/[facility]/ZIP Co de Phone Number [facility] [address] [place] [phone] * HIV-1/2 Antigen and Antibodies, Fourth Generation, with Reflexes (02/28/2024 10:40 AM EST) HIV AB/AG Nonreactive Nonreactive [facility] Comment:HIV-1 p24 Ag and/or HIV-1/HIV-2 Ab not detected.A test result that is nonreactive does not exclude thepossibility of exposure to or infection with HIV-1 and/orHIV-2. Nonreactive results in this assay for individualswith prior exposure to HIV-1 and/or HIV-2 may be due toantigen and antibody levels that are below the limit ofdetection of this assay.The [employer] HIV Ag/Ab Combo assay result andsupplemental assay results should be interpreted inconjunction with the patient's clinical presentation,history and other laboratory results. If the results areinconsistent with clinical evidence, additional testing issuggested to confirm the result. Blood Venous blood specimen / Unknown 02/28/2024 10:40 AM EST 02/28/2024 2:28 PM EST us Shu Hurtado [facility] BLOOD ORDERABLES Final Res ult Performing Organization Address City/[facility]/ZIP Co de Phone Number [facility] [address] [place] [phone] * Hemoglobin A1c (02/28/2024 10:40 AM EST) Hemoglobin A1c 5.3 <6.0 % [facility] Comment:Hemoglobin A1C Refer ence Range Adults: 4.8 - 6.0 % Non diabetic: < 6.0 % Goal: < 7.0 %Additional Action Suggested: > 8.0 %Note: Hemoglobin A1c results are invalid for patients with abnormal amounts of HbF. Blood transfusions may impact the HbA1c concentration in the patient sample. Estimated Average Glucose 105 mg/dL [facility] Comment:eAG = Estimated ave rage glucose which is %A1C expressed asaverage glucose, using the formula of the E8L-GblixbcQmneina Glucose study (ADAG), Diabetes Care, Vol.31,#8,Oct. 2007 Blood Venous blood specimen / Unknown 02/28/2024 10:40 AM EST 02/28/2024 2:22 PM EST us Shu Hurtado [facility] BLOOD ORDERABLES Final Res ult [facility] [address] [place] [phone] * (ABNORMAL) Lipid Panel, Standard (02/28/2024 10:40 AM EST) Triglycerides 73 <150 mg/dL [facility] Comment:Desirable Triglyceri de: less than 150 mg/dLBorderline High Triglyceride 150-199 mg/dLHigh Triglyceride: 200-499 mg/dLVery High Triglyceride: greater than or equal to 5OO mg/dL Cholesterol 234(H) <200 mg/dL [facility] Comment:Desirable Cholestero l: less than 200 mg/dLBorderline High Cholesterol: 200-239 mg/dLHigh Cholesterol: greater than 239 mg/dL LDL Cholesterol Calculated 137(H) <100 mg/dL [facility] Comment:Desirable LDL: less than 100 mg/dLNear Optimal/Above Optimal LDL: 110- 129 mg/dLBorderline High LDL: 130-159 mg/dLHigh LDL: 160-189 mg/dLVery High LDL: greater than or equal to 190 mg/dL HDL Cholesterol 83 >40 mg/dL [facility] Comment:Desirable HDL: great er than 40 mg/dL Note: This HDL assay may give artificially low results in patients with liver disease. Blood Venous blood specimen / Unknown 02/28/2024 10:40 AM EST 02/28/2024 2:28 PM EST Shu Hurtado COMMERCIAL LOAN SPECIALIST LAB BLOOD ORDERABLES Final Res ult [facility] [address] [place], [place] [phone] * (ABNORMAL) Comprehensive Metabolic Panel (02/28/2024 10:40 AM EST) Sodium 142 135 - 145 mmol/L [facility] Potassium 4.3 3.3 - 5.1 mmol/L [facility] Chloride 111(H) 96 - 108 mmol/L [facility] Carbon Dioxide 28 22 - 29 mmol/L [facility] Anion Gap 7(L) 12 - 20 [facility] Urea Nitrogen (BUN) 12 9 - 16 mg/dL [facility] Creatinine, Serum 0.71 0.5 - 1.4 mg/dL [facility] Estimated Glomerular Filt Rate >60 [facility] Comment:Chronic Kidney Disea se: Estimated GFR < 60 mL/min/1.82f1Ffximj Kidney Disease: Estimated GFR < 15 mL/min/1.73m2 Glucose 89 60 - 115 mg/dL [facility] Calcium 9.0 8.4 - 10.2 mg/dL [facility] Bilirubin, Total 0.5 0.0 - 1.0 mg/dL [facility] Aspartate Amino Transferase 24 5 - 31 U/L [facility] Alanine Aminotransferase 21 0 - 31 U/L [facility] Total Protein 7.6 6.5 - 8.0 g/dL [facility] Albumin Level 4.1 3.5 - 5.0 g/dL [facility] Alkaline Phosphatase 79 39 - 117 U/L [facility] Blood Venous blood specimen / Unknown 02/28/2024 10:40 AM EST 02/28/2024 2:28 PM EST us Shu Hurtado COMMERCIAL LOAN SPECIALIST LAB BLOOD ORDERABLES Final Res ult [facility] [address] [facility] [address] [place] [phone] * BI Mammogram Screening Tomosynthesis Bilateral (11/19/2023 8:55 AM EDT) Anatomical Region Laterality Modality Breast Bilateral Mammography 11/19/2023 8:55 AM EDT Narrative 12/03/2023 5:55 PM EDT ? [facility] ? [address] ?[place] [address] ? Mammography Report ? Signed ? Patient: Vadim,Nati ?MR#: [id number] ?? 003 ? : 1975 ?Acct:[id number] ? Age/Sex: 48 / F ?ADM Date: 11/19/23 ? Loc: HO.MAMMO ? Attending Dr: Shu Hurtado COMMERCIAL LOAN SPECIALIST ? Ordering Physician: Shu Hurtado COMMERCIAL LOAN SPECIALIST ?Results: 1Negat ?? riccardo ? Date of Service: 11/19/23 ?Follow Up: 1 Year From Orig ?? inal Mammogram ? Procedure(s): MM tomosynthesis screening BI ?? Accession Number(s): [id number] ? cc: Shu Hurtado COMMERCIAL LOAN SPECIALIST ? EXAMINATION: ?? MM SCREENING DIGITAL BREAST [...] ? DD/ 0855 ? TD/TT: 11/19/2315 ? Embedded Processor: ? Procedure Note David Gonzales - 12/03/2023 [facility] [address] [place] [address] Mammography Report Signed Patient: Suzanne Fierro#: [id number] 003 : 1975Acct:[id number] Age/Sex: 48 / FADM Date: 11/19/23 Loc: [facility] Attending Dr: Shu Hurtado COMMERCIAL LOAN SPECIALIST Ordering Physician: Shu Hurtado FNPResults: 1Negat riccardo Date of Service: 11/19/23Follow Up: 1 Year From Orig inal Mammogram Procedure(s): MM tomosynthesis screening BI Accession Number(s): [id number] cc: Shu Hurtado EXAMINATION: MM SCREENING DIGITAL [...] 12/03/23 1752 DD/ 0855 TD/TT: 11/19/23 0915 Embedded Processor: Shu CERRATO IMG BI PROCEDURES Final Result * Pap Smear (10/26/2022 10:10 AM EDT) 10/26/2022 10:1 0 AM EDT 10/27/2022 9:00 AM EDT [facility] - 11/14/2022 9:40 AM EDT ----- ------- Name: Vadim,Nati ?Age/Sex: 47/F ? : 1975 Unit#: [id number] ?? Attend Dr: Jovanni Byrd MD ?Re10/26/22 ?Status: DEP REF ? Location: HO.LNP ?Disch: ? ----- ------- SPEC : [id number] ?RECD: 10/27/22 ? STATUS: ??SOUT ? REQ NUM: [id number] ? CHET: 10/26/22-0 ? SUBM DR: Jovanni Byrd MD ? ENTERED: ??10/27/22 ?SP TYPE: Pap Smr ?OTHR DR: Shu Hurtado COMMERCIAL LOAN SPECIALIST ? ORDERED: ??Pap Smear ? Interpretation ?? Satisfactory for evaluation. ?? Negative for intraepithelial lesion or malignancy. ?HPV mRNA E6/E7: ?NOT DETECTED ? This assay detects E6/E7 viral messenger RNA (mRNA) from 14 high-risk HPV types (16, 18, ?? 31, 33, 35, 39, 45, 51, 52, 56, 58, 59, 66, 68) ?? HPV testing performed by [employer] [facility] [employer], [place]. ??See reference laboratory ?? pion of the EMR for entire report. ?Clinical Information LMP:Postmenopausal Previous PAP test:Unknown date/findings Other history:Polyp of the cervix uteri, amenorrhea unspecified, postcoital and contact bleeding ? Material Received ?? ThinPrep-Cervical Copies To: ?? Shu Hurtado COMMERCIAL LOAN SPECIALIST ?? [address] [facility] ?? [place] [address] ?? [phone] ?? Jovanni Byrd MD ?? [address] [facility] [address] [facility] ?? [place] [address] ?? [phone] ----- ------- Signed (signature on file) MARIA LUISA Cee (ASCP) 11/14/22 2787 ? ----- ------- ? END OF REPORT ? [facility] External Provider LAB CYT OLOGY ORDERABLES Final Result Performing Organization Address City/[facility]/ZIP Co de Phone Number [facility] [address] [place] [address] [phone] * HPV mRNA E6/E7 (10/07/2020 9:23 AM EDT) HPV nRNA E6/E7 Not Detected Not Detected [facility] Comment: Methodology: Blueprint Maker-Mediated Amplification This assay detects E6/E7 viral messenger RNA (mRNA) from 14 high-risk HPV types (16,18,31,33,35,39,45,51,52,56,58,59,66,68). ? The analytical performance characteristics of this assay have been determined by [employer] [facility] [employer]. The modifications have not been cleared or approved by the FDA. This assay has been validated pursuant to the CLIA regulations and is used for clinical purposes. ?? For additional information, please refer to http://education.[employer]/faq/CCH532s9 (This link if provided for information/ educational purposes only.) 10/07/2020 9:23 AM EDT Susy Espinoza MD LAB BLOOD ORDERABLES Final Re sult Performing Organization Address City/[facility] Co de Phone Number [facility] [address] from Last 3 Months or Most Recently Relevant to Health Maintenance Insurance [facility] LIMITED ADULT DENTAL - HSN FULL (MEDICAID) Care Teams Case Briefer Relationship Specialty Start Date End Date Shu Hurtado FNP [address] [place] [address] [place] [address] PCP - General Family Medicine 11/05/21 Hina Santos MD [address] [place] [address] Hematology and Oncology 03/09/24 Jovanni Byrd MD [address] [place] [address] [place] [phone] Obstetrics and Gynecology 03/09/24
[2024-06-02 13:16] VITALS: BMI 27.1
[2024-06-04] VITALS (7 sets, daily range): BP systolic 102–137; BP diastolic 55–79; PULSE 62–83; RESP 16–17; TEMP 36.2–36.5; O2SAT 98–100; BMI 26.2
[2024-06-04 08:01] LABS: UPreg QC Valid YES; Urine Pregnancy NEGATIVE (NEGATIVE)
[2024-06-04] MEDS: Lactated Ringers 1,000 ML 100 ML IVCONT (08:14)
--- NOTE | 2024-06-04 08:37 | MHC.SHP ---
Pre-Procedural Eval Section A - 24 Hr Update-Section A only Date of Service: 06/04/24 The patient is an INPATIENT: No Changes since office visit: Yes Patient answered all questions; No Cold of Flu in the past 2 weeks, No New Medical Problems and No Changes in Medication The patient has been examined within 24 hours of the surgical procedure. The History & Physical has been completed within 30 days and I have reviewed it.: No Section B - Complete if H&P > 30 days Chief Complaint: Benign lipomatous neoplasm of skin and tissue Details of Present Illness: No change in patient's symptoms Relevant Family History (Specify if Yes): No Relevant Social History: None Present Medications: see Short Stay Collaborative assessment Medical History: No relevant PMH History of Previous Operations: No relevant previous surgery Allergies: Allergies Allergy/AdvReac Type Severity Reaction Status Date / Time No Known Allergies Allergy Verified 04/24/24 09:45 Review of Systems Sugical H&P ROS: Negative: Constitution, Cardiovascular, Respiratory, Neurological, Psychiatric, Hem-Onc, Allergic/Immunologic, Gastrointestinal, Genitourinary, Musculoskeletal and Integumentary Exam Surgical H&P Exam: Normal: Heart, Normal: Lungs, Normal: Extremities, Normal: Abdomen and Normal: Skin Plan Diagnosis/Plan: Unchanged I have reviewed the history and physical and performed a pertinent physical examination on my patient. No changes have occurred unless specified. Time Spent With Patient Time: Total time managing care of this patient today ____ minutes.
--- NOTE | 2024-06-04 09:22 | P.CONAN_ITS ---
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) Cervical radiculopathy (Acute) Bursitis of shoulder, left (Acute) Leucopenia (Acute) Endocervical polyp (Acute) Amenorrhea (Acute) Postcoital bleeding (Acute) Past Medical History Medical History Leukopenia DJD of left shoulder Family History Family history of problems with anesthesia: No Surgical History Surgical History Hx of section History of Problems with Anesthesia: No Social History Social History Alcohol intake: never Patient Tobacco Use Status: Never used Tobacco Use of substances other than those prescribed or required for medical reasons: No Are you DNR?: No Advance Directives: No Advance Directives Information Provided: Yes Advance Directives on File: No Recently lost weight without trying: No Nutrition Risks: No Nutritional Risk Current occupational status: employed Current occupation: right [employer] Allergies Allergy/AdvReac Type Severity Reaction Status Date / Time No Known Allergies Allergy Verified 04/24/24 09:45 Active Medications: Current Medications Lactated Ringer's (Lr) 1,000 mls @ 100 mls/hr IVCONT .Q10H HARRY Last Admin: 06/04/24 08:14 Dose: 100 mls/hr Home Medications ?Medication ?Instructions ?Recorded ?Confirmed ?Last Taken ?Type ibuprofen 600 mg tablet 800 mg PO BID PRN Pain 04/24/24 06/02/24 Unknown History Exam Height,Weight and Vital Signs: Height 5 ft 5 in Weight 71.3 kg Last Vital Signs Temp 97.7 F 06/04/24 08:02 Pulse 71 06/04/24 08:02 Resp 16 06/04/24 08:02 BP 137/79 06/04/24 08:02 Pulse Ox 99 06/04/24 08:02 O2 Del Method Room Air 06/04/24 08:02 Pertinent Lab Results Pertinent Lab Results: Laboratory Tests 06/04/24 07:42 Urine Test NEGATIVE Airway Mallampati Class: II TM Dist: >3cm Neck ROM: Full Heart: rrr Lungs: cta Assessment and Plan Assessment Anesthesia Assessment: Anesthesia Plan Discussed and Chart Reviewed Final Anesthetic Review Family History of Problems with Anesthesia: No History of Problems with Anesthesia: No NPO: Yes ASA Class: II Final Preanesthetic Review: No Changes in Pt Med Stat, Meds/Allgs Chart Reviewed, Consent Obtained/Reviewed and Anes Risks/Benef Reviewed Patient Risk: Low Procedure Risk: Low Anesthetic Plan Anesthetic Plan: GA Disposition: Standard PACU
--- NOTE | 2024-06-11 14:21 | W.PM.OPN ---
Operative Note Operative Note Date of Service: 06/11/24 Narrative: Preoperative diagnosis: lipoma left shoulder Postoperative diagnosis: same Procedure: excision of lipoma left shoulder Surgeon: Kwadwo Ortiz MD [employer] [place] [place]: Caroline Andrews PA-C; SABINE Carroll Anesthesia: general LMA Indications for procedure: 49-year-old female patient with a gradually enlarging soft tissue mass of the left shoulder which is now causing discomfort. Patient has requested excision. On examination the lesion measures at least 4 cm in diameter. Operative findings: Lipoma left shoulder Specimen: lipoma left shoulder Estimated blood loss: less than 2 mL Complications: none Procedure details: patient was brought to the OR placed in a supine position. After administering general anesthesia patient's left shoulder was prepped with ChloraPrep and draped in a sterile fashion. A surgical time-out was called the consent confirmed. Patient received preoperative antibiotics and Venodyne boots were in place. Local anesthesia consisting of 0.5% Sensorcaine was infiltrated over the lipoma. A longitudinal incision was then made with the scalpel carried out through subcutaneous tissue up to the upper surface of the lipoma. A combination of sharp and blunt dissection was used to dissect the lipoma from the surrounding subcutaneous tissue. Specimen was removed and sent to pathology for further examination. Wounds were checked for hemostasis. Wounds were irrigated with saline solution and suctioned dry. Subcutaneous tissue and dermis were then reapproximated using interrupted 3-0 Polysorb sutures. Skin was closed using a running subcuticular 4-0 Polysorb suture. Steri-Strips, 4 x 4 gauze and Tegaderm were then applied. The patient tolerated the procedure well. Sponge, instrument, needle counts reported as correct. The patient was transferred to PACU in stable condition.
== END 2024-06-04 11:04 | disposition home or self-care (01) ==
PROVIDERS: PCP Registered Nurse; Visit Provider Surgery
PROC: (CPT 23071; principal; 2024-06-04 09:00)
DX: D17.22 Benign lipomatous neoplasm of skin and subcutaneous tissue of left arm (principal); Z79.1 Long term (current) use of non-steroidal anti-inflammatories (NSAID)
CPT/HCPCS: 23071; 81025; 88304; J0131; J0690; J1100; J2003; J2405; J2704; J2795; J3010

== ENCOUNTER → 2024-06-04 07:28 | Outpatient (BNV) | payer OTHER, SELFPAY | PROVIDERS: PCP Registered Nurse; Visit Provider Surgery | DX: D17.22 Benign lipomatous neoplasm of skin and subcutaneous tissue of left arm (principal) | CPT/HCPCS: 23071 ==

== ENCOUNTER 2024-06-13 11:17 | Outpatient (AMB) | payer OTHER, SELFPAY ==
--- NOTE | 2024-06-13 11:24 | A.OFFVIS_ITS ---
Vital Signs 06/13/24 11:43 Height 5 ft 5 in Weight 156 lb 8.451 oz BMI 26.0 Intake Visit Reasons: s/p exc lipoma lft shoulder Intake Note: Patient is seen in office for post op assessment post excision of lipoma left shoulder. Pt c/o: no concerns surgery:06/04/24 Bight Maker Required: No Accompanied by: Self / Same As Patient Allergies No Known Allergies Allergy (Verified 06/13/24 11:44) HPI Comments Details: 49-year-old female patient returning 1 week following excision of a left shoulder lipoma. She tolerated the procedure well and generally feels well. She denies any bleeding or discharge from the incision. Pathology confirmed a lipoma. [facility] Medical History Leukopenia DJD of left shoulder Surgical History Hx of excision of mass (06/04/24) Hx of section Social History Alcohol intake: never Patient Tobacco Use Status: Never used Tobacco Current occupational status: employed Current occupation: [employer], right Female Reproductive History Menstrual Age of Menarche: 10 Physical Exam Vital Signs: BMI result Body Mass Index 26.0 Const General: healthy appearing Nutritional Appearance: well nourished Orientation/consciousness: patient oriented x3 Resp Effort & Inspection: normal respiratory effort Neuro General: patient oriented x3 Extrem Other: Left shoulder incision is clean, dry, and intact without redness or discharge. No palpable seroma/hematoma identified. Assessment & Plan Assessment & Plan (1) Lipoma of left shoulder: Code(s): D17.22 - Benign lipomatous neoplasm of skin and subcutaneous tissue of left arm Category: Medical Plan 49-year-old female patient status post excision of a lipoma of the left shoulder. She tolerated the procedure well and her wounds are healing nicely. Pathology confirmed a lipoma. She should return as necessary. Coding Level of Care Code Global (99575) Diagnoses Lipoma of left shoulder D17.22
[2024-06-13 11:43] VITALS: BMI 26.0
== END 2024-06-13 11:48 | disposition home or self-care (01) ==
LOC: HO.HGS 11:17
PROVIDERS: PCP Registered Nurse; Visit Provider Surgery
DX: D17.22 Benign lipomatous neoplasm of skin and subcutaneous tissue of left arm (principal)
CPT/HCPCS: 99024

== ENCOUNTER → 2024-06-13 11:17 | Outpatient (BNVA) | payer OTHER, SELFPAY | PROVIDERS: PCP Registered Nurse; Visit Provider Surgery | DX: Z48.817 Encounter for surgical aftercare following surgery on the skin and subcutaneous tissue (principal); Z98.890 Other specified postprocedural states | CPT/HCPCS: 99212 ==

== ENCOUNTER 2024-08-03 12:22 | Emergency (ER) | payer OTHER, SELFPAY ==
--- NOTE | ~2024-08-03 | XR_ITS ---
CLINICAL HISTORY: fall, pain Single view of the chest with left rib films. COMPARISON: XR chest dated 05/23/22 at 16:53 EDT FINDINGS: Normal heart and mediastinal contours. No consolidation. No pleural effusion or pneumothorax. No fracture identified. IMPRESSION: 1. No acute cardiopulmonary abnormality. 2. No rib fracture identified. This document has been electronically signed by: David Kuhn MD on 08/03/2024 14:39:29
--- NOTE | ~2024-08-03 | XR_ITS ---
CLINICAL HISTORY: fall, pain Three views of the left shoulder. COMPARISON: XR left shoulder dated 04/08/24 at 09:48 EST FINDINGS: Proximal left humerus, the left scapula, and the left clavicle appear intact. Humeral head is appropriately seated in the glenoid. Mild hypertrophy of the left acromioclavicular joint. Visualized portions of the left lung are clear. IMPRESSION: 1. No radiographic evidence of acute injury to the left shoulder. This document has been electronically signed by: David Kuhn MD on 08/03/2024 14:37:19
--- NOTE | 2024-08-03 12:38 | ED.FALL ---
HPI - Fall General Chief Complaint: Fall Stated Complaint: wokr inj - fall Time Seen by Provider: 08/03/24 15:01 Source: patient, family, RN notes reviewed and parts interpreter Mode of arrival: ambulatory Limitations: language barrier History of Present Illness ED Provider: Tori Bulter PA-C HPI Narrative: This is a 49-year-old [place]an-speaking female who presents emergency department with concerns for left shoulder and left rib/back pain status post mechanical fall which occurred this afternoon. Patient states that she accidentally slipped and fell on a cup of ice. She landed onto her left side. She states she did not hit her head or lose consciousness. She is not on anticoagulation. She was able to get herself off the ground. Denies taking any medications to treat her pain. She states that she felt well prior to the fall. No dizziness, lightheadedness, headache, chest pain, shortness of breath, abdominal pain, nausea, vomiting or diarrhea. No other complaints or concerns at this time. MD complaint: fall Onset (ago): hour(s) Fall from: standing Place fall occurred: work Loss of consciousness: none Prolonged down time: no Symptoms prior to fall: none Context: tripped/slipped Location of injury - extremities: left: shoulder Quality: aching Associated symptoms (after fall): denies Related Data Home Medications ?Medication ?Instructions ?Recorded ?Confirmed ibuprofen 600 mg tablet 800 mg PO BID PRN Pain 04/24/24 06/02/24 Previous Rx's ?Medication ?Instructions ?Recorded oxycodone 5 mg tablet 5 mg PO Q6H PRN pain (scale score 06/04/24 7-10) #15 tabs acetaminophen 500 mg tablet 500 - 1,000 mg (1 - 2 x 500 mg) PO 08/03/24 (Tylenol Extra Strength) Q8H PRN pain #30 tabs ibuprofen 600 mg tablet 600 mg PO Q6H PRN pain #30 tabs 08/03/24 lidocaine 5 % topical patch 1 patch topical DAILY #30 ea 08/03/24 tramadol 50 mg tablet 50 mg PO Q6H PRN pain #20 tabs 08/05/24 Allergies Allergy/AdvReac Type Severity Reaction Status Date / Time No Known Allergies Allergy Verified 08/04/24 22:15 Review of Systems Review of Systems: Yes all other systems are reviewed and are negative Constitutional: Constitutional: Reports as per HPI [facility] Past Medical History Medical History Leukopenia DJD of left shoulder Surgical History Hx of excision of mass (06/04/24) Hx of section Social History Social History Alcohol intake: never Patient Tobacco Use Status: Never used Tobacco Smoked in Last 30 Days: No Use of substances other than those prescribed or required for medical reasons: No Advance Directives: No Advance Directives Information Provided: Yes Do you have a plan to hurt others: No Plan Patient : No Current occupational status: employed Current occupation: [employer], right Physical Exam Vital Signs: Vital Signs: Last Vital Signs Temp 97.6 F 08/03/24 16:18 Pulse 80 08/03/24 16:18 Resp 18 08/03/24 16:18 BP 129/66 08/03/24 16:18 Pulse Ox 99 08/03/24 16:18 O2 Del Method Room Air 08/03/24 16:18 BMI result Body Mass Index 27.1 Const: General: cooperative, comfortable and no acute distress Orientation/consciousness: patient oriented x3 Limitations: no limitations HEENT: Head: Yes normal to inspection, Yes normocephalic and Yes atraumatic Ears: hearing grossly normal bilaterally General nose exam: Normal external nose present Face and sinus: Yes normal facial exam Mouth: Normal oral and palatal mucosa present, oropharynx normal and moist mucous membranes Throat: Yes posterior oropharynx normal Eyes: General: appearance normal, both eyes and all related structures Eyelids: Yes eyelids normal Conjunctivae: conjunctivae normal Sclerae: sclerae normal Pupils: Equal, round and reactive pupils present EOM: EOMs intact bilaterally Neck: Neck: Yes normal visual inspection, Yes full ROM and Yes no lymphadenopathy Lymphatic: no lymphadenopathy noted Chest: Chest palpation & inspection: normal inspection of the chest Resp: Effort & Inspection: normal respiratory effort and able to speak in complete sentences Auscultation: clear to auscultation bilaterally, no crackles, no rales, no rhonchi and no wheezes Cardio: Rate: regular rate Rhythm: regular rhythm Heart sounds: S1 normal heart sound present and S2 normal heart sound present GI: Inspection: Yes normal to inspection Back/Spine/Pelvis: Other: Tenderness palpation along the left posterior lateral rib, as well as the left paraspinous muscles with spasm. No bony step-off or deformity. No midline spine tenderness on examination. Patient ambulatory with steady gait. Skin: General skin exam: no rashes or lesions noted Trauma: no lacerations or abrasions Wounds: no wounds Neuro: General: patient oriented x3 and moves all extremities Cranial nerves: Yes Equal, round and reactive pupils present Extrem: Other: Left shoulder with no obvious bony deformity or swelling, full ROM of the joint. She does have tenderness palpation along the left scapula extending into the left trapezius with spasm noted. No overlying skin changes or lacerations. General: Yes normal to inspection Right upper extremity: normal to inspection Left upper extremity: normal to inspection Right lower extremity: normal to inspection Left lower extremity: normal to inspection Course Course Course Narrative: This is an RME performed by Sherif Gonzáles CNP: Additional HPI, ROS, PE not included below will be deferred to primary provider. Patient is a 49 year old female who presents to the emergency department for evaluation of work related injury, slip and fall on ice at [facility], fell onto left side. Diffuse pain primarily localized to the left shoulder and left lateral ribs. Denies head strike or LOC, no use of anticoagulants Plan: XR shoulder/ribs Medical Decision Making Medical Decision Making MDM Narrative: This is a 49-year-old female who presents emergency department with concerns for left shoulder, left-sided posterior rib pain status post mechanical fall which occurred this morning. On arrival, vital signs within normal limits. She is speaking full sentences under no acute distress. No LOC or head strike. She is not on anticoagulation. Differential diagnoses include fracture, contusion, sprain, strain. X-rays were obtained prior to my evaluation, no acute bony abnormality seen on the rib or shoulder x-ray. Discussed findings with patient. Discharged on ibuprofen and Tylenol. Given strict return precautions. Patient understands and agrees with plan. Patient stable for discharge Differential Diagnosis Differential Diagnoses: The differential diagnosis associated with the presentation includes See above Radiology Impression Discussion of test interpretation with radiology: I have reviewed the radiologist's reading. Radiologist Impression: FINDINGS: Normal heart and mediastinal contours. No consolidation. No pleural effusion or pneumothorax. No fracture identified. IMPRESSION: 1. No acute cardiopulmonary abnormality. 2. No rib fracture identified. This document has been electronically signed by: David Kuhn MD on 08/03/2024 14:39:29 FINDINGS: Proximal left humerus, the left scapula, and the left clavicle appear intact. Humeral head is appropriately seated in the glenoid. Mild hypertrophy of the left acromioclavicular joint. Visualized portions of the left lung are clear. IMPRESSION: 1. No radiographic evidence of acute injury to the left shoulder. This document has been electronically signed by: David Kuhn MD on 08/03/2024 14:37:19 Dictated By: David Kuhn MD Discharge Plan Discharge Clinical Impression: Fall, Contusion of back, Acute shoulder pain Patient Disposition: Home, Self-Care Instructions: Contusion in Adults (ED), Shoulder Pain (ED), Rib Contusion (ED) Additional Instructions: You were seen in the emergency department after a fall at work Your x-rays of your left shoulder and left ribs do not show any broken bones. You likely will be sore for the next several days. Please alternate between ibuprofen and or Tylenol as needed for pain. Lidocaine patches can also help with your pain. Do not apply heat or ice directly to the patches. Ice the areas of discomfort in the 1st 24-48 hours. Gentle stretching and massage can also help. Drink plenty of fluids get plenty of rest. If any new or worsening symptoms occur including but not limited to severe headache, dizziness, chest pain, shortness of breath, please seek emergent care. Follow-up with your primary care physician regarding this visit. Prescriptions: New ibuprofen 600 mg tablet 600 mg PO Q6H PRN (Reason: pain) Qty: 30 0RF acetaminophen [Tylenol Extra Strength] 500 mg tablet 500 - 1,000 mg PO Q8H PRN (Reason: pain) Qty: 30 0RF lidocaine 5 % adhesive patch,medicated 1 patch topical DAILY Qty: 30 0RF Rx Instructions: leave on most painful area for up to 12 hrs No Action oxycodone 5 mg tablet 5 mg PO Q6H PRN (Reason: pain (scale score 7-10)) Qty: 15 0RF Rx Instructions: Partial Fill upon patient request. tramadol 50 mg tablet 50 mg PO Q6H PRN (Reason: pain) Qty: 20 0RF ibuprofen 600 mg tablet 800 mg PO BID PRN (Reason: Pain) Stand Alone Forms: Work/School Release Interventions: ED Discharge Assessment Last Done: 08/03/24 16:18 Discharge Date/Time: 08/03/24 16:19 Print Language: B[place]an
[2024-08-03 12:39] VITALS: BP 136/61; PULSE 79; RESP 18; TEMP 36.4; O2SAT 99; BMI 27.1
[2024-08-03 16:07] VITALS: BP 129/66; PULSE 80; RESP 18; TEMP 36.4; O2SAT 99
[2024-08-03 16:18] VITALS: BP 129/66; PULSE 80; RESP 18; TEMP 36.4; O2SAT 99
== END 2024-08-03 16:19 | disposition home or self-care (01) ==
PROVIDERS: Emergency Provider Emergency Medicine
DX: S30.0XXA Contusion of lower back and pelvis, initial encounter (principal); M25.512 Pain in left shoulder; M54.50 Low back pain, unspecified; R07.81 Pleurodynia; X58.XXXA Exposure to other specified factors, initial encounter; W00.0XXA Fall on same level due to ice and snow, initial encounter; Y93.01 Activity, walking, marching and hiking; Y92.511 Restaurant or cafe as the place of occurrence of the external cause; Y99.0 Civilian activity done for income or pay; Z79.899 Other long term (current) drug therapy
CPT/HCPCS: 71101; 73030; 99283; 99284

== ENCOUNTER → 2024-08-03 12:47 | Outpatient (BNV) | payer OTHER, SELFPAY | PROVIDERS: Visit Provider Radiology Diagnostic Radiology | DX: R07.81 Pleurodynia (principal); M25.512 Pain in left shoulder; W19.XXXA Unspecified fall, initial encounter | CPT/HCPCS: 71101; 73030 ==

== ENCOUNTER 2024-08-04 22:04 | Emergency (ER) | payer OTHER, SELFPAY ==
[2024-08-04 22:12] VITALS: BP 146/85; BP 150/79; PULSE 79; PULSE 98; RESP 16; TEMP 36.8; O2SAT 98; BMI 26.6
[2024-08-04 23:30] VITALS: BP 139/62; PULSE 68
--- NOTE | 2024-08-04 23:53 | ED_ITS ---
HPI - Fall General Chief Complaint: Fall Stated Complaint: L flank pain, here yesterday for fall. Time Seen by Provider: 08/04/24 23:53 Source: patient Mode of arrival: ambulatory Limitations: no limitations History of Present Illness ED Provider: HPI Narrative: Patient apparently slipped and fell on the ice yesterday hitting her left ribs to the ground was seen here yesterday x-ray was negative comes here as check the blood pressure at home was 175/111 had headache no nausea no vomiting after coming to the ER patient's blood pressure improved 150/79 repeat blood pressure was 139/62 no prior history of hypertension no nausea no vomiting Related Data Home Medications ?Medication ?Instructions ?Recorded ?Confirmed ibuprofen 600 mg tablet 800 mg PO BID PRN Pain 04/24/24 06/02/24 Previous Rx's ?Medication ?Instructions ?Recorded oxycodone 5 mg tablet 5 mg PO Q6H PRN pain (scale score 06/04/24 7-10) #15 tabs acetaminophen 500 mg tablet 500 - 1,000 mg (1 - 2 x 500 mg) PO 08/03/24 (Tylenol Extra Strength) Q8H PRN pain #30 tabs ibuprofen 600 mg tablet 600 mg PO Q6H PRN pain #30 tabs 08/03/24 lidocaine 5 % topical patch 1 patch topical DAILY #30 ea 08/03/24 tramadol 50 mg tablet 50 mg PO Q6H PRN pain #20 tabs 08/05/24 Allergies Allergy/AdvReac Type Severity Reaction Status Date / Time No Known Allergies Allergy Verified 08/04/24 22:15 Review of Systems Review of Systems: Yes all other systems are reviewed and are negative [facility] Past Medical History Medical History Leukopenia DJD of left shoulder Surgical History Hx of excision of mass (06/04/24) Hx of section Social History Social History Alcohol intake: never Patient Tobacco Use Status: Never used Tobacco Advance Directives: No Advance Directives Information Provided: Yes Do you have a plan to hurt others: No Plan Current occupational status: employed Current occupation: [employer], right Physical Exam Vital Signs: Vital Signs: Last Vital Signs Temp 98.2 F 08/04/24 22:12 Pulse 68 08/04/24 23:30 Resp 16 08/04/24 22:12 BP 139/62 08/04/24 23:30 Pulse Ox 98 08/04/24 22:12 O2 Del Method Room Air 08/04/24 22:12 BMI result Body Mass Index 26.6 Appearance: Alert. Oriented X3. No acute distress. Eyes: PERRLA, No Nystagmus ENT: Pharynx normal. Oral Mucosa moist Neck: Normal inspection. Neck supple. CVS: Normal heart rate and rhythm. Pulses normal. Respiratory: No respiratory distress. Equal air entry bilateral, no wheezing/rales/rhonchi mild tenderness left ribs in mid axillary area no crepitus Abdomen: Soft and nontender. Bowel sounds are present, no mass palpable, no CVA tenderness Skin: Skin warm and dry. Normal skin color. Normal skin turgor. Extremities: No lower extremity edema. No calf tenderness Neuro: Oriented X 3. No motor deficit. No sensory deficit.No cerebellar signs , cranial nerves II-XII intact Medications Administered Discontinued Medications Generic Name Dose Route Start Last Admin Trade Name Freq PRN Reason Stop Dose Admin Tramadol HCl 50 mg 08/05/24 00:09 08/05/24 00:16 Tramadol Hcl 50 Mg Tablet PO 08/05/24 00:10 50 mg ONCE ONE Administration Medical Decision Making Medical Decision Making MDM Narrative: Patient's transient hypertension repeat blood pressure was normal hypertension likely from pain and ibuprofen use patient advised to decrease salt intake keep an eye on the blood pressure and follow up with PCP Discharge Plan Discharge Clinical Impression: Elevated blood pressure reading without diagnosis of hypertension, Contusion of rib on left side Patient Disposition: Home, Self-Care Instructions: How to Take a Blood Pressure Reading (ED), Rib Contusion (ED) Additional Instructions: You had transient elevated blood pressure repeat blood pressure was normal Decrease salt intake Pain medication as prescribed Follow up with your PCP blood pressure persistently higher than 140/90 Prescriptions: New tramadol 50 mg tablet 50 mg PO Q6H PRN (Reason: pain) Qty: 20 0RF No Action oxycodone 5 mg tablet 5 mg PO Q6H PRN (Reason: pain (scale score 7-10)) Qty: 15 0RF Rx Instructions: Partial Fill upon patient request. ibuprofen 600 mg tablet 600 mg PO Q6H PRN (Reason: pain) Qty: 30 0RF acetaminophen [Tylenol Extra Strength] 500 mg tablet 500 - 1,000 mg PO Q8H PRN (Reason: pain) Qty: 30 0RF lidocaine 5 % adhesive patch,medicated 1 patch topical DAILY Qty: 30 0RF Rx Instructions: leave on most painful area for up to 12 hrs ibuprofen 600 mg tablet 800 mg PO BID PRN (Reason: Pain) Print Language: [place]
[2024-08-05] MEDS: traMADoL HCL 50 MG TABLET PO (00:16)
[2024-08-05 00:31] VITALS: BP 132/78; PULSE 64; RESP 16; TEMP 36.6; O2SAT 98
[2024-08-05 00:34] VITALS: BP 132/78; PULSE 64; RESP 16; TEMP 36.6; O2SAT 98
== END 2024-08-05 00:35 | disposition home or self-care (01) ==
PROVIDERS: Emergency Provider Internal Medicine
DX: R51.9 Headache, unspecified (principal); R03.0 Elevated blood-pressure reading, without diagnosis of hypertension; S20.212A Contusion of left front wall of thorax, initial encounter; W00.0XXA Fall on same level due to ice and snow, initial encounter; Y93.01 Activity, walking, marching and hiking; Y92.9 Unspecified place or not applicable; Y99.9 Unspecified external cause status
CPT/HCPCS: 99283; 99284

== ENCOUNTER 2024-10-03 12:43 | Emergency (ER) | payer OTHER, SELFPAY ==
--- NOTE | ~2024-10-03 | XR_ITS ---
EXAMINATION: XR PELVIS CLINICAL INFORMATION: falll, pain on L COMPARISON: None available. TECHNIQUE: AP view of the pelvis. FINDINGS: Bony pelvis is intact. Coxofemoral joints are intact with normal alignment. No lytic or blastic lesions. XR/XR pelvis 1-2V IMPRESSION: No acute fracture. Negative x-ray exam. Electronically signed by: Raúl Morrissey MD 10/03/2024 01:57 PM EDT
--- NOTE | ~2024-10-03 | XR_ITS ---
EXAMINATION: XR FEMUR, LEFT CLINICAL INFORMATION: fall and now leg pain COMPARISON: None available. TECHNIQUE: AP and lateral views of the left femur were obtained. FINDINGS: No acute cortical disruption. Mild sclerosis along the articular surface of the medial tibial plateau with asymmetric joint space narrowing. No lytic or blastic lesions. XR/XR femur LT 2V IMPRESSION: No acute fracture. 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 Electronically signed by: Raúl Morrissey MD 10/03/2024 01:58 PM EDT
[2024-10-03 12:48] VITALS: BP 186/90; PULSE 98; O2SAT 100
[2024-10-03 12:51] VITALS: BP 143/64; PULSE 78; RESP 18; TEMP 36.6; O2SAT 100; BMI 26.6
--- NOTE | 2024-10-03 15:42 | ED.LOWEXIN ---
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 She was working today at [employer], reports that she was standing on a wooden Pallet removing a box from the palate. She reports that wrapping from the [employer] had got tangled up along her foot resulting in her falling landing onto her left side with resultant pain to the left hip/proximal femur. No deformity. Pain with attempted ambulation. Denies any head strike or associated loss of consciousness, no use of anticoagulants or known coagulation disorders. Denies having any paresthesias to the left lower extremity. No deformity. Denies prior injury Related Data Home Medications ?Medication ?Instructions ?Recorded ?Confirmed ibuprofen 600 mg tablet 800 mg PO BID PRN Pain 04/24/24 06/02/24 Previous Rx's ?Medication ?Instructions ?Recorded oxycodone 5 mg tablet 5 mg PO Q6H PRN pain (scale score 06/04/24 7-10) #15 tabs acetaminophen 500 mg tablet 500 - 1,000 mg (1 - 2 x 500 mg) PO 08/03/24 (Tylenol Extra Strength) Q8H PRN pain #30 tabs ibuprofen 600 mg tablet 600 mg PO Q6H PRN pain #30 tabs 08/03/24 lidocaine 5 % topical patch 1 patch topical DAILY #30 ea 08/03/24 tramadol 50 mg tablet 50 mg PO Q6H PRN pain #20 tabs 08/05/24 Allergies Allergy/AdvReac Type Severity Reaction Status Date / Time No Known Allergies Allergy Verified 10/03/24 12:53 Review of Systems Review of Systems: Yes all other systems are reviewed and are negative [facility] Past Medical History Attestation statement: The following information was validated with the patient. Source: old records reviewed Medical History Leukopenia DJD of left shoulder Surgical History Hx of excision of mass (06/04/24) Hx of section Social History Social History Alcohol intake: never Patient Tobacco Use Status: Never used Tobacco Advance Directives: No Advance Directives Information Provided: Yes Current occupational status: employed Current occupation: [employer], right Physical Exam Exam: Exam: Appearance: Alert.?Oriented to person, place and time. No acute distress.?Normal affect. Head: Normocephalic, atraumatic Neck: Normal inspection.? Neck supple.??No midline cervical spine tenderness, step-offs, deformities CVS: Heart sounds normal. Normal heart rate and rhythm.? Pulses normal.?? Respiratory: No respiratory distress.? Lung sounds clear to auscultation bilaterally?? Abdomen: Soft and non-tender. Normoactive bowel sounds. Back: No lumbar spine tenderness, step-offs, deformities. Lower paraspinal muscle tenderness. Skin: Skin warm and dry.? Normal skin color.? Normal skin turgor.?? Extremities: No lower extremity edema.? No calf ttp. 2+ DP/PT pulse. Decreased AROM to the right hip. No acute deformity. Neuro: Moves all extremities spontaneously. Sensation intact bilaterally.No focal neuro deficits. Ambulates with antalgic gait. Vital Signs: Vital Signs: Last Vital Signs Temp 97.8 F 10/03/24 15:49 Pulse 78 10/03/24 15:49 Resp 18 10/03/24 15:49 BP 143/64 H 10/03/24 15:49 Pulse Ox 100 10/03/24 15:49 O2 Del Method Room Air 10/03/24 15:49 BMI result Body Mass Index 26.6 Medications Administered Discontinued Medications Generic Name Dose Route Start Last Admin Trade Name Freq PRN Reason Stop Dose Admin Acetaminophen 975 mg 10/03/24 15:41 10/03/24 15:47 Acetaminophen 325 Mg Tablet PO 10/03/24 15:42 975 mg ONCE ONE Administration Ibuprofen 600 mg 10/03/24 15:41 10/03/24 15:47 Ibuprofen 600 Mg Tablet PO 10/03/24 15:42 600 mg ONCE ONE Administration Medical Decision Making Medical Decision Making MDM Narrative: Patient is a 49-year-old female who presents emergency department for evaluation after mechanical fall with resultant pain to the left hip. Overall the extremity is neurovascularly intact distally, no obvious deformity, no ecchymosis, has decreased AROM on attempt due to pain. XR imaging of the hip and pelvis in addition to the femur was obtained and no evidence of acute dislocation, there was incidental finding of arthritis to the knee. Would conservative treatment, outpatient follow-up with primary care provider, all questions answered. Ambulatory with antalgic gait. Differential Diagnosis Differential Diagnoses: The differential diagnosis associated with the presentation includes (Fracture, dislocation, contusion, sprain, bursitis) Admission/Observation Consideration of admission/observation: Escalation of care including admission/observation considered Independent Interpretation I performed an independent interpretation of an: Plain X-Ray (See narrative above) Radiology Impression Discussion of test interpretation with radiology: I have reviewed the radiologist's reading. Radiologist Impression: XR/XR femur LT 2V IMPRESSION: No acute fracture. 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 XR/XR pelvis 1-2V IMPRESSION: No acute fracture. Negative x-ray exam. Independent Historian Clinical information obtained from an independent historian. History obtained from or confirmed by: Spouse and EMS External Record Review External record reviewed: Outpatient record Prescription Management I considered prescription management with: Pain Medication Discharge Plan Discharge Clinical Impression: Contusion of hip Qualifiers: Encounter type: initial encounter Laterality: left Qualified Code(s): S70.02XA - Contusion of left hip, initial encounter Patient Disposition: Home, Self-Care Instructions: Hip Contusion (ED) Additional Instructions: X-ray today of the hip pelvis femur and knee did not show evidence of fracture dislocation. You had incidental finding of arthritis to the knee which is likely chronic in nature. Please be sure to rest over the next few days, apply ice for 10-15 minutes 4-6 times daily. You can take ibuprofen 200 mg, 3 tablets (600mg) every 6-8 hours as needed for pain, in addition to Tylenol 500 mg, 2 tablets (1,000mg) every 4-6 hours as needed for pain, but not to exceed 3 doses daily (3,000mg).? Refrain from excessive walking, stair climbing or movement that might trigger worsen your pain. You have been provided with a work note. If you feel that you are still unable to return after 3 days please follow-up with your primary care doctor. I suggest calling their office today before the upcoming weekend. 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 You may return back to emergency department with any new or worsening symptoms or concerns. Prescriptions: No Action oxycodone 5 mg tablet 5 mg PO Q6H PRN (Reason: pain (scale score 7-10)) Qty: 15 0RF Rx Instructions: Partial Fill upon patient request. tramadol 50 mg tablet 50 mg PO Q6H PRN (Reason: pain) Qty: 20 0RF ibuprofen 600 mg tablet 600 mg PO Q6H PRN (Reason: pain) Qty: 30 0RF acetaminophen [Tylenol Extra Strength] 500 mg tablet 500 - 1,000 mg PO Q8H PRN (Reason: pain) Qty: 30 0RF lidocaine 5 % adhesive patch,medicated 1 patch topical DAILY Qty: 30 0RF Rx Instructions: leave on most painful area for up to 12 hrs ibuprofen 600 mg tablet 800 mg PO BID PRN (Reason: Pain) Referrals: Physician,Unknown J [Primary Care Provider, Medical] Interventions: ED Discharge Assessment Last Done: 10/03/24 15:49 Discharge Date/Time: 10/03/24 15:58 Print Language: Chinese
[2024-10-03 15:49] VITALS: BP 143/64; PULSE 78; RESP 18; TEMP 36.6; O2SAT 100
== END 2024-10-03 15:58 | disposition home or self-care (01) ==
PROVIDERS: Emergency Provider Emergency Medicine Emergency Medical Services
DX: S70.02XA Contusion of left hip, initial encounter (principal); R10.2 Pelvic and perineal pain; M79.605 Pain in left leg; X58.XXXA Exposure to other specified factors, initial encounter; Y93.9 Activity, unspecified; Y92.9 Unspecified place or not applicable; Y99.0 Civilian activity done for income or pay
CPT/HCPCS: 72170; 73552; 99283

== ENCOUNTER → 2024-10-03 13:43 | Outpatient (BNV) | payer OTHER, SELFPAY | PROVIDERS: Visit Provider Radiology Diagnostic Radiology | DX: M79.605 Pain in left leg (principal); M17.12 Unilateral primary osteoarthritis, left knee; R10.2 Pelvic and perineal pain; W19.XXXA Unspecified fall, initial encounter | CPT/HCPCS: 72170; 73552 ==

== ENCOUNTER 2024-11-04 08:43 | Outpatient (REF) | payer OTHER, SELFPAY ==
--- NOTE | ~2024-11-04 | XR_ITS ---
Exam: Three-view bilateral hands Comparison made with the right hand x-ray June 19, 2023 INDICATION: Pain TECHNIQUE: PA, oblique, and lateral view x-rays, bilateral hands FINDINGS: Right hand: There is normal bone mineral density. Joint spaces are preserved. No osteophytes are identified. No erosions are seen. There is no soft tissue swelling. Left hand: There is normal bone mineral density. Joint spaces are preserved. No osteophytes are identified. No erosions are seen. There is no soft tissue swelling. XR/XR Hand Bilat min 3v Impression: Unremarkable bilateral hands. Electronically signed by: Didier Yang MD 11/04/2024 03:16 PM EDT RP
== END 2024-11-04 08:44 | disposition home or self-care (01) ==
LOC: HO.HOSX 08:43
DX: M65.332 Trigger finger, left middle finger (principal); M65.331 Trigger finger, right middle finger; M79.641 Pain in right hand; M79.642 Pain in left hand
CPT/HCPCS: 73130; 99212

== ENCOUNTER 2024-11-04 15:04 | Outpatient (AMB) | payer OTHER, SELFPAY ==
[2024-11-04 15:10] VITALS: BMI 26.6
--- NOTE | 2024-11-04 15:10 | MHC.OFFVIS ---
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 Patient states for the past 5 months she has been experiencing stiffness. 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 Denies any known injuries to the hands. Reports numbness on her right middle and ring finger. She also complains of right middle finger locking and catching. Denies previous surgeries to the hands. Denies any previous treatment like OT, hand brace, or injections. 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 Patient states for the past 5 months she has been experiencing stiffness. 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 Denies any known injuries to the hands. Reports numbness on her right middle and ring finger. She also complains of bilateral middle finger locking and catching. Denies previous surgeries to the hands. Denies any previous treatment like OT, hand brace, or injections. PFSH Medical History Leukopenia DJD of left shoulder Surgical History Hx of excision of mass (06/04/24) Hx of section Social History Alcohol intake: never Patient Tobacco Use Status: Never used Tobacco Current occupational status: employed Current occupation: [employer], right Female Reproductive History Menstrual Age of Menarche: 10 Review of Systems Const All systems reviewed & are unremarkable except as noted in HPI and below Physical Exam Vital Signs: BMI result Body Mass Index 26.6 Extrem Other: Patient is alert, oriented, and in no acute distress. Neuro: Normal sensation of the tips of all digits of the bilateral hands at this time Vascular: Cap refill brisk Pain: There is tenderness to palpation of the A1 pulleys of the middle fingers of bilateral hands in the office today Mild pain associated with locking and catching of bilateral middle fingers ROM: There is visible and palpable locking and catching of bilateral middle fingers in a flexed position, patient is able to release these without difficulty Patient is able to flex and extend all other digits of bilateral hands fully and without difficulty Skin: No lacerations or abrasions. General: No ecchymosis, erythema, or evidence of infection. Psych: Appears grossly normal Affect normal Attitude cooperative Assessment & Plan Assessment & Plan (1) Trigger middle finger of left hand: Code(s): M65.332 - Trigger finger, left middle finger Category: Medical (2) Trigger middle finger of right hand: Code(s): M65.331 - Trigger finger, right middle finger Category: Medical Plan 1. bilateral middle finger trigger fingers Patient is educated about this condition Patient is educated about the treatment options available, namely injections and surgery Patient states she is interested in potential injections, but is apprehensive about perform the injections today, as this is unexpected and she feels she needs some time to prepare Patient will be booked an appointment in 3-4 weeks to see me for bilateral middle finger trigger injections Patient understands this is amenable to this plan Follow-up in Orders: Orders XR Hand Bilat min 3v 11/04/24 M79.643 - Pain in unspecified hand Coding Level of Care Code Est Pt Level 3 (22623) Diagnoses Trigger middle finger of left hand M65.332 Trigger middle finger of right hand M65.331
--- OUTSIDE RECORDS SUMMARY | 2024-11-04 15:57 | XMS_ITS | Encounter Summary ---
Author Organization [employer] Address [address] [place] [address] Care Team Providers Care Tag Press Operator Name Role Phone Shu Hurtado Primary Care Provider [phone] Hina Santos MD Unavailable [phone] Jovanni Byrd MD Unavailable Shu Hurtado Primary Care Provider [phone] Shu Hurtado Primary Care Provider Encounter Details Date Type Department Care Team (Late st Contact Info) Description 02/14/2022 Abstract [facility] MEDICINE [address] [place], [place] [phone] Provider, MD Samanta Social History Tobacco Use [...] Care Team (Late st Contact Info) Description 12/26/2024 9:00 AM EDT Office Visit [facility] ADULT DENTAL [address] [place], [place] [phone] Jacqueline Cooper documented as of this encounter Visit Diagnoses Not on filedocumented in this encounter Care Teams Tag Press Operator Relationship Specialty Start Date End Date Shu Hurtado FNP [address] [place], [place] [phone] PCP - General Family Medicine 11/05/21 08/17/24 Shu Hurtado FNP [address] [place] [address] PCP - General Family Medicine 08/18/24 08/18/24 Shu Hurtado FNP [address] [place] [address] PCP - General Family Medicine 09/04/24 Hina Santos MD [address] [place] [address] Hematology and Oncology 03/09/24 Jovanni Byrd MD [address] [place] [address] Obstetrics and Gynecology 03/09/24 documented as of this encounter
--- OUTSIDE RECORDS SUMMARY | 2024-11-04 15:57 | XMS_ITS | Encounter Summary ---
Author Organization [employer] Address [address] [place] [address] 7 [place] [address] Care Team Providers Care Electromagnet Crane Operator Name Role Phone Shu Hurtado Primary Care Provider Hina Santos MD Unavailable [phone] Jovanni Byrd MD Unavailable Shu Hurtado Primary Care Provider [phone] Shu Hurtado Primary Care Provider [phone] Reason for Visit * Reason Comments Med Change Request Encounter Details Date Type Department Care Team ([facility] st Contact Info) Description 02/25/2024 Refill [facility] MED & PEDS [address] [place], [place] [phone] Suh Hurtado FNP [address] [place], [place] [phone] Social History Tobacco Use Types Packs/Day Years [...] AM EDT documented as of this encounter Functional Status * Over the past 2 weeks, how often have you been bothered by any of the following problems? Question Answer Date of Assessment Author Patient Health Questionnaire-2 Score 2 02/25/2024 3:31 PM Gucci Casper MA * Little interest or pleasure in doing things Answer Date of Assessment Author Several days 02/25/2024 3:31 PM Gucci Almazan MA * Feeling down, depressed, or hopeless Answer Date of Assessment Author Several days 02/25/2024 3:31 PM Gucci Almazan MA * Trouble falling or staying asleep, or sleeping too much Answer Date of Assessment Author Several days 02/25/2024 3:31 PM Gucci Almazan MA * Feeling tired or having little energy Answer Date of Assessment Author Several days 02/25/2024 3:31 PM Gucci Almazan MA * Poor appetite or overeating Answer Date of Assessment Author Several days 02/25/2024 3:31 PM Gucci Almazan MA * Feeling bad about yourself - or that you are a failure or have let yourself or your family down Answer Date of Assessment Author Not at all 02/25/2024 3:31 PM Gucci Almazan MA * Trouble concentrating on things, such as reading the newspaper or watching television Answer Date of Assessment Author Not at all 02/25/2024 3:31 PM Gucci Almazan MA * Moving or speaking so slowly that other people could have noticed? Or the opposite - being so fidgety or restless that you have been moving around a lot more than usual. Answer Date of Assessment Author Not at all 02/25/2024 3:31 PM Gucci Almazan MA * Thoughts that you would be better off or hurting yourself in some way Answer Date of Assessment Author Not at all 02/25/2024 3:31 PM Gucci Almazan MA * Patient Health Questionnaire-9 Score Answer Date of Assessment Author 5 02/25/2024 3:31 PM Gucci Almazan MA * How difficult have these problems made it for you to do your work, take care of things at home, or get along with other people? Answer Date of Assessment Author Not difficult at all 02/25/2024 3:31 PM Gucci Walsh MA documented as of this encounter Plan of Treatment Upcoming Encounters Date Type Department Care Team (Late st Contact Info) Description 12/26/2024 9:00 AM EDT Office Visit [facility] ADULT D[facility]AL [address] [place] [address] Jacqueline Cooper documented as of this encounter Visit Diagnoses Not on filedocumented in this encounter Additional Health Concerns Assessment Noted Time PHQ-9 Depression Total Score: 5 02/25/20 24 3:31 PM EST documented as of this encounter Care Teams Electromagnet Crane Operator Relationship Specialty Start Date End Date Shu Hurtado FNP [address] [place] [address] PCP - General Family Medicine 11/05/21 08/17/24 Shu Hurtado FNP [address] [place] [address] PCP - General Family Medicine 08/18/24 08/18/24 Shu Hurtado FNP [address] [place] [address] PCP - General Family Medicine 09/04/24 Hina Santos MD [address] [place] [address] Hematology and Oncology 03/09/24 Jovanni Byrd MD [address] [place] [address] Obstetrics and Gynecology 03/09/24 documented as of this encounter
--- OUTSIDE RECORDS SUMMARY | 2024-11-04 15:57 | XMS_ITS | Encounter Summary ---
Author Organization [email or web address] Address [address] [place] [address] 7 [place] [address] Care Team Providers Care Parent Educator Name Role Phone Hina Santos MD Unavailable [phone] Jovanni Byrd MD Unavailable Shu Hurtado Primary Care Provider Reason for Visit * Reason Onset Date Comments Letter for School/Work 10/13/2024 Encounter Details Date Type Department Care Team ([facility] st Contact Info) Description 10/13/2024 Telephone [facility] MED[facility]INE [address] [place] [address] Shu Hurtado FNP [address] [place], [place] [phone] Letter for School/Work Social History Tobacco Use Types Packs/Day Years [...] encounter Miscellaneous Notes * Telephone Encounter - Cristina Ruano RN - 10/15/2024 11:36 AM EDT Extension generated per provider request. Pt advised if not feeling better next week pt needs to beseen again. Pt to come in to product picker letter at [facility]. * Telephone Encounter - BLOSSOM Jones - 10/13/2024 5:23 PM EDT Yes, I agree to having a few more days off prior to return to work. Thanks! * Telephone Encounter - Leonardo Cruz - 10/13/2024 3:48 PM EDT Patient reports receiving a letter excusing her from work until 10/13. She is requesting an extension, since she is still not feeling 100% and is unable to return to work. Patient also noted that although she was referred for Physical Therapy, the specialist office informed her that she needs to contact her employer's insurance to confirm coverage before proceeding. documented in this encounter Plan of Treatment Upcoming Encounters Date Type Department Care Team (Late st Contact Info) Description 12/26/2024 9:00 AM EDT Office Visit [facility] ADULT DENTAL [address] [place] [address] Jacqueline Cooper documented as of this encounter Visit Diagnoses Not on filedocumented in this encounter Additional Health Concerns Assessment Noted Time PHQ-9 Depression Total Score: 5 02/25/20 24 3:31 PM EST documented as of this encounter Care Teams Parent Educator Relationship Specialty Start Date End Date Shu Hurtado FNP [address] [place] [address] PCP - General Family Medicine 09/04/24 Hina Santos MD [address] [place] [address] Hematology and Oncology 03/09/24 Jovanni Byrd MD [address] [place] [address] Obstetrics and Gynecology 03/09/24 documented as of this encounter
--- OUTSIDE RECORDS SUMMARY | 2024-11-04 15:57 | XMS_ITS | Clinical Summary ---
Author Organization [employer] Address [address] [place] [address] 7t [place] [address] Care Team Providers Care Computer Game Programmer Name Role Phone Hina Santos MD Unavailable [phone] Jovanni Byrd MD Unavailable Shu Hurtado Primary Care Provider [phone] Allergies Active Allergy Reactions Criticality Noted Date Comments Calcium Channel Blockers Swelling 09/01/2022 Pedal Edema Medications magnesium oxide (Mag-Ox) 400 mg tabletIndication s:Sleep [...] 48 weeks) 35 mL 2 4 Active magnesium oxide (Mag-Ox) 400 (240 Mg) MG tablet Take 400 mg by mouth at bedtime. 5 Active estradiol (Estrace) 0.1 MG/GM vaginal cream Insert 1 g vaginally x 14 days, then use 1 g vaginally twice weekly ongoing after that 42.5 g 1 5 Active ibuprofen 600 MG tabletIndication s:Routine health maintenance Take 1 tablet (600 mg) by mouth every 8 (eight) hours if needed for headaches or moderate pain. 100 tablet 3 5 10/07/19 26 Active cyclobenzaprine (Flexeril) 10 MG tabletIndication s:Acute bilateral low back pain with bilateral sciatica Take 1 tablet (10 mg) by mouth 3 times daily for 10 days. 30 tablet 5 Active Diclofenac Sodium 1 % gelIndications:A cute bilateral low back pain with bilateral sciatica Apply 1 g topically if needed in the morning, at noon, and at bedtime (pain). 100 g 5 11/06/19 25 Active naproxen (Naprosyn) 500 MG tabletIndication s:Acute bilateral low back pain with bilateral sciatica Take 1 tablet (500 mg) by mouth 2 times daily. 60 tablet 5 11/06/19 25 Active Active Problems Problem Noted Date Diagnosed Date Acute pain of left shoulder 08/15/2024 Assessment & Plan (08/15/2024 9:17 AM EDT): - S/p mechanical fall at work on 08/03/24 - Cont alternating APAP/ibuprofen for pain control - Referral to [facility] placed Lipoma of left shoulder 06/25/2024 Assessment & Plan (08/15/2024 9:07 AM EDT): S/p removal May [address] Ortiz at [facility] Incision well healed Other neutropenia 09/21/2023 Overview (09/21/2023): Lab Results Component Value Date WBC 5.3 07/09/2023 WBC 3.5 (L) 07/02/2023 WBC 2.7 (L) 06/19/2023 NEUTABSAUTO 3.2 07/09/2023 NEUTABSAUTO 1.4 (L) 07/02/2023 NEUTABSAUTO 0.9 (L) 06/19/2023 Assessment & Plan (03/09/2024 10:25 PM EST): -Initial referral after two low readings. Following with [facility]. Consult in August 2023 with suspicion of leukopenia r/t UTI or viral infection. Plan to monitor in 6 months. Assessment & Plan (09/21/2023 3:33 PM EDT): -Initial referral after two low readings. Following with [facility]. Consult in August 2023 with suspicion of leukopenia r/t UTI or viral infection. Plan to monitor in 6 months. PCB (post coital bleeding) 03/16/2023 Overview (06/17/2023): 10/26/22: [facility] Dr. yBrd - visit for post-coital bleeding. Biopsy of the endocervical polyp. Pathology: Cervix, polyp, biopsy: Small fragment of squamous mucosa within normal limits; negative for a squamous intraepithelial lesion. Assessment & Plan (03/09/2024 10:24 PM EST): Denies PCB since, follow up with [facility] as scheduled Assessment & Plan (06/17/2023 10:54 AM EDT): Denies PCB since, follow up with [facility] as scheduled Primary hypertension 07/19/2022 Assessment & Plan (09/29/2024 10:27 AM EDT): - Elevated upon initial and repeat BP check in office - Hx of hypertension, although had been off medication. May be acutely elevated secondary to pain - Rec: monitor home BP readings. If above goal, plan to re-start anti- hypertension medications - Lifestyle recs Assessment & Plan (08/15/2024 9:18 AM EDT): - Elevated upon initial and repeat BP check in office - Hx of hypertension, although had been off medication. May be acutely elevated secondary to pain - Rec: monitor home BP readings. If above goal, plan to re-start anti- hypertension medications - Lifestyle recs Assessment & Plan (03/09/2024 10:25 PM EST): [...] Assessment & Plan (11/09/2022 2:12 PM EDT): Currently well controlled off medication (Previous tx - amlodipine lead to lower extremity edema) Continue with low salt diet and daily physical activity ED precautions reviewed Assessment & Plan (07/20/2022 7:36 AM EDT): BP well controlled on current regimen, asymptomatic Continue amlodipine 5mg daily Continue with low salt diet and daily physical activity ED precautions reviewed Routine health maintenance 05/29/2022 Overview (09/29/2024): Last PE: 02/25/24 Pap: 10/30 nilm hpv-, repeat 11/04 Mammo: 11/19/23: Mammo BIRADS 1 Colon cancer: Coljing (per records, received Oct 2021, pt reports sent back to [facility] (Last year ?2022) and was told results were normal. Referral to GI for colonoscopy placed 09/21/23. Repeat GI referral sent 09/29/24. Assessment & Plan (06/17/2023 11:16 AM EDT): [...] Encounters Date Type Department Care Team Description 10/13/2024 Telephone [facility] [address] [place] [address] Shu Hurtado FNP Letter for School/Work 10/06/2024 10:15 AM EDT Office Visit [facility] [address] [place] [phone] Elida Muse, COOK FISHING VESSEL Fall, subsequent encounter (Primary Dx); Acute bilateral low back pain with bilateral sciatica 10/06/[address] [address] Shu Hurtado FNP 10/06/2024 Travel 10/03/2024 Refill [facility] [address] [place] [address] Shu Hurtado FNP Routine health maintenance 09/29/2024 10:00 AM EDT Office Visit [facility] [address] [place] [address] Shu Hurtado FNP Arthralgia of both hands (Primary Dx); Colon cancer screening; Encounter for immunization; Vaginal dryness, menopausal; Routine health maintenance 09/29/2024 Travel 09/11/2024 Telephone [facility] [address] [place] [address] Terry Lewis, DMD 08/14/[address] [address] Shu Hurtado FNP Nurse Triage 08/08/2024 3:15 PM EDT Office Visit [facility] [address] [place] [address] Shu Hurtado FNP Acute pain of left shoulder (Primary Dx); Primary hypertension 08/08/2024 Travel 08/05/2024 Telephone [facility] [address] [place] [address] Shu Hurtado FNP Nurse Triage from Last 3 Months Immunizations Immunization Administration Dates Next Due DTaP 03/30/2020 Influenza Injectable Quadriv alant Preservative Free IIV4 MDCK 02/02/2021 Influenza injectable quadrivalent preservative f ree 12/30/2021,03/30/2020 MMR 03/30/2020 Pneumococcal Conjugate PCV 20 09/29/2024 Tdap 02/07/2021 Varicella 03/30/2020 Family History Medical [...] Sign Reading Time Taken Comments Blood Pressure 120/80 10/06/2024 10:11 AM EDT Pulse 81 10/06/2024 10:11 AM EDT Temperature 36.9 C (98.4 F) 10/06/2024 10:11 AM EDT Respiratory Rate 20 10/06/2024 10:11 AM EDT Oxygen Saturation 98% 10/06/2024 10:11 AM EDT Inhaled Oxygen Concentration - - Weight 76.7 kg (169 lb) 10/06/2024 10:11 AM EDT Height 165.1 cm (5' 5 ) 10/06/2024 10:11 AM EDT Body Mass Index 28.12 10/06/2024 10:11 AM EDT Plan of Treatment Upcoming Encounters Date Type Department Care Team (Late st Contact Info) Description 12/26/2024 9:00 AM EDT Office Visit [facility] [address] [place] [address] Jacqueline Cooper Health Maintenance Due Date Last Done Comments CT Colonography 1975 Colonoscopy 1975 Colorectal Cancer Screening 1975 FIT DNA/Cologuard 1975 FIT 1975 FOBT 1975 Sigmoidoscopy 1975 Family Planning (PISQ) 01/20/1991 Hepatitis B Vaccines (1 of 3 - 19+ 3-dose series) 01/20/1995 Zoster Vaccines (1 of 2) 05/25/2020 COVID-19 Vaccine ( season) 2023 02/07/2021, 07/25/2020, 07/04/2020 Influenza Vaccine (#1) 2024 , 02/02/2021, 03/30/2020 Mammogram 11/18/2024 11/19/2023, 09/0 08/2022, 11/08/2021, Additional history exists Dental X-Ray: Bitewings 12/20/2024 12/20/2023 Dental Oral Exam 12/26/2024 06/25/2024, 12/20/2023 Dental Prophylaxis 12/26/2024 06/25/2024, 12/20/2023 Alcohol/Substance Use Screening 02/24/2025 02/25/2024 Depression Screening 02/24/2025 02/25/2024, 02/25/20 24 SDOH Screening 02/24/2025 02/25/2024 Disability Screening 09/29/2025 09/29/2024 Tobacco Screening 10/06/2025 10/06/2024 Dental X-Ray: Full Mouth 12/20/2026 12/20/2023 Cervical [...] 02/28/2024 , 06/19/2023, 07/14/2022, Additional history exists Pneumococcal Vaccine: Pediatrics (0 to 5 Years) and At-Risk Patients (6 to 49) Years Completed 09/29/2024 HIB Vaccines Aged Out No longer eligi [...] patient's age to complete this topic Meningococcal B Vaccine Aged Out No l onger eligible based on patient's age to complete [...] Procedure Name Priority Date/Time Associated Diagnosis Comments PROPHYLAXIS - ADULT Routine 06/25/2024 9 :00 AM EDT PERIODIC ORAL EVALUATION - ESTABLISHED PATIENT Routine 06/25/2024 9:00 AM EDT HEPATITIS C VIRAL RNA, QUANTITATIVE, REAL-TIME PCR Routine 02/28/2024 10:40 AM EST Routine health maintenance HIV 1/2 ANTIGEN/ANTIBODY, FOURTH GENERATION W/RFL Routine 02/28/2024 10:40 AM EST Routine health maintenance LIPID PANEL, STANDARD Routine 02/28/2024 10:40 AM EST Routine health maintenance INTRAORAL - COMPLETE SERIES OF RADIOGRAPHIC IMAGES Routine 12/20/2023 9:00 AM EDT BI MAMMOGRAM SCREENING TOMOSYNTHESIS BILATERAL Routine 11/19/2023 8:55 AM EDT PAP SMEAR Routine 10/26/2022 10:10 AM EDT HPV MRNA E6/E7 Routine 10/07/2020 9:23 AM EDT from Last 3 Months or Most Recently Relevant to Health Maintenance Results * Hepatitis C Viral RNA, Quantitative, Real-Time PCR (02/28/2024 10:40 AM EST) Pathologist [facility] [place] Hepatitis C Viral Load <15 NOT DETECTED NOT DETECTED IU/mL [facility] HCV Log PCR <1.18 NOT DETECTED NOT DETECTED Log IU/mL [facility] Comment:For additional infor caron, please refer tohttp://education.Maluuba/faq/RWR56x3(This link is being provided for informational/educational purposes only.)THIS TEST WAS PERFORMED AT:[facility] [place] [id number] JUAN MD Blood 02/28/2024 10:4 0 AM EST 02/28/2024 2:22 PM EST us Shu Hurtado EMERGENCY SERVICE RESTORER LAB BLOOD ORDERABLES Final Res ult [facility] [address] [place] [phone] * HIV-1/2 Antigen and Antibodies, Fourth Generation, with Reflexes (02/28/2024 10:40 AM EST) HIV AB/AG Nonreactive Nonreactive [facility] Comment:HIV-1 p24 Ag and/or HIV-1/HIV-2 Ab not detected.A test result that is nonreactive does not exclude thepossibility of exposure to or infection with HIV-1 and/orHIV-2. Nonreactive results in this assay for individualswith prior exposure to HIV-1 and/or HIV-2 may be due toantigen and antibody levels that are below the limit ofdetection of this assay.The [employer] HIV Ag/Ab Combo assay result andsupplemental assay results should be interpreted inconjunction with the patient's clinical presentation,history and other laboratory results. If the results areinconsistent with clinical evidence, additional testing issuggested to confirm the result. Blood Venous blood specimen / Unknown 02/28/2024 10:40 AM EST 02/28/2024 2:28 PM EST us Shu Hurtado [facility] LAB BLOOD ORDERABLES Final Res ult [facility] [address] [place], [place] [phone] * (ABNORMAL) Lipid Panel, Standard (02/28/2024 10:40 AM EST) Triglycerides 73 <150 mg/dL [facility] Comment:Desirable Triglyceri de: less than 150 mg/dLBorderline High Triglyceride 150-199 mg/dLHigh Triglyceride: 200-499 mg/dLVery High Triglyceride: greater than or equal to 5OO mg/dL Cholesterol 234(H) <200 mg/dL [facility] Comment:Desirable Cholestero l: less than 200 mg/dLBorderline High Cholesterol: 200-239 mg/dLHigh Cholesterol: greater than 239 mg/dL LDL Cholesterol Calculated 137(H) <100 mg/dL [facility] Comment:Desirable LDL: less than 100 mg/dLNear Optimal/Above Optimal LDL: 110- 129 mg/dLBorderline High LDL: 130-159 mg/dLHigh LDL: 160-189 mg/dLVery High LDL: greater than or equal to 190 mg/dL HDL Cholesterol 83 >40 mg/dL [facility] Comment:Desirable HDL: great er than 40 mg/dL Note: This HDL assay may give artificially low results in patients with liver disease. Blood Venous blood specimen / Unknown 02/28/2024 10:40 AM EST 02/28/2024 2:28 PM EST us Shu Hurtado EMERGENCY SERVICE RESTORER LAB BLOOD ORDERABLES Final Res ult [facility] [address] [place] [address] [phone] * BI Mammogram Screening Tomosynthesis Bilateral (11/19/2023 8:55 AM EDT) Anatomical Region Laterality Modality Breast Bilateral Mammography 11/19/2023 8:55 AM EDT Narrative 12/03/2023 5:55 PM EDT [address] [place] [address] Mammography Report Signed Patient: Nati Fierro MR#: [id number] : 1975 Acct:[id number] Age/Sex: 48 / F ADM Date: 11/19/23 Loc: HO.MAMMO Attending Dr: Shu CERRATO Ordering Physician: Shu Hurtado Results: 1Negat js Date of Service: 11/19/23 Follow Up: 1 Year From Orig inal Mammogram Procedure(s): MM tomosynthesis screening BI Accession Number(s): [id number] cc: Shu Hurtado EXAMINATION: MM SCREENING DIGITAL [...] Bea Castellano DO 12/03/2023 05:52 PM EDT RP Dictated By: Bea Castellano DO Signed By: <Electronically signed by Bea Castellano DO in OV> 12/03/23 1752 DD/ 0855 TD/TT: 11/19/23 0915 Stage Manager: Procedure Note Donotuseinterpreter, Image - 12/03/2023 [facility] [address] [place], [place] [address] Mammography Report Signed Patient: Suzanne Fierro#: [id number] : 1975Acct:[id number] Age/Sex: 48 / FADM Date: 11/19/23 Loc: HO.MAMMO Attending Dr: Shu Hurtado EMERGENCY SERVICE RESTORER Ordering Physician: Shu Hurtado FNPResults: 1Negat js Date of Service: 11/19/23Follow Up: 1 Year From Orig ina Mammogram Procedure(s): MM tomosynthesis screening BI Accession Number(s): [id number] cc: Shu Hurtado EMERGENCY SERVICE RESTORER EXAMINATION: MM SCREENING DIGITAL BREAST TOMOSYNTHESIS, BILATERAL [...] Castellano DO in OV> 12/03/23 1752 DD/ TD/TT: 11/19/23 0915 Stage Manager: Shumalcolm Hurtado EMERGENCY SERVICE RESTORER IMG BI PROCEDURES Final Result * Pap Smear (10/26/2022 10:10 AM EDT) 10/26/2022 10:1 0 AM EDT 10/27/2022 9:00 AM EDT [facility] - 11/14/2022 9:40 AM EDT ----- ------- Name: Nati Fierro Age/Sex: 47/F : 1975 Unit#: [id number] Attend Dr: Jovanni Byrd MD Re10/26/22 Status: APOLINAR SHABAZZ Location: HO.LNP Disch: ----- ------- SPEC : [id number] RECD: 10/27/22-899 STATUS: ARIANNA WALL NUM: [id number] CHET: 10/26/22-1010 [facility] DR: Jovanni Byrd MD ENTERED: 10/27/22 SP TYPE: Pap Smr OTHR DR: Shu Hurtado ORDERED: Pap Smear Interpretation Satisfactory for evaluation. Negative for intraepithelial lesion or malignancy. HPV mRNA E6/E7: NOT DETECTED This assay detects E6/E7 viral messenger RNA (mRNA) from 14 high-risk HPV types (16, 18, 31, 33, 35, 39, 45, 51, 52, 56, 58, 59, 66, 68) HPV testing performed by [employer] [facility] [place], [place]. See reference laboratory pion of the EMR for entire report. Clinical Information LMP:Postmenopausal Previous PAP test:Unknown date/findings Other history:Polyp of the cervix uteri, amenorrhea unspecified, postcoital and contact bleeding Material Received ThinPrep-Cervical Copies To: Shu Hurtado [address] [place] [address] Jovanni Byrd MD [address] [place] [address] Dr[address] [place] [address] ----- ------- Signed (signature on file) MARIA LUISA Cee (ASCP) 11/14/22 0940 ----- ------- END OF REPORT [facility] External Provider LAB CYT OLOGY ORDERABLES Final Result [facility] [address] [place] [address] [phone] * HPV mRNA E6/E7 (10/07/2020 9:23 AM EDT) HPV nRNA E6/E7 Not Detected Not Detected [facility] Comment: Methodology: Vacuum Drum Drier Operator-Mediated Amplification This assay detects E6/E7 viral messenger RNA (mRNA) from 14 high-risk HPV types (16,18,31,33,35,39,45,51,52,56,58,59,66,68). The analytical performance characteristics of this assay have been determined by [employer] [facility] The modifications have not been cleared or approved by the FDA. This assay has been validated pursuant to the CLIA regulations and is used for clinical purposes. For additional information, please refer to http://education.Maluuba/faq/RZV376q0 (This link if provided for information/ educational purposes only.) 10/07/2020 9:23 AM EDT us Susy Espinoza MD LAB BLOOD ORDERABLES Final Re sult [facility] [address] from Last 3 Months or Most Recently Relevant to Health Maintenance Insurance [facility] [place] [id number] D[facility]AL-[facility] MEDICAID LIMITED ADULT DENTAL - HSN FULL (MEDICAID) GENERIC WORKERS' COMP GENERIC WORKERS' COMP Care Teams Computer Game Programmer Relationship Specialty Start Date End Date Shu Hurtado FNP [address] [place] [address] PCP - General Family Medicine 09/04/24 Hina Santos MD [address] [place] [address] Hematology and Oncology 03/09/24 Jovanni Byrd MD [address] [place] [address] Obstetrics and Gynecology 03/09/24
== END 2024-11-04 15:38 | disposition home or self-care (01) ==
LOC: HO.HOS 15:04
DX: M65.332 Trigger finger, left middle finger (principal); M65.331 Trigger finger, right middle finger
CPT/HCPCS: 99213

== ENCOUNTER → 2024-11-04 15:06 | Outpatient (BNV) | payer OTHER, SELFPAY | PROVIDERS: Visit Provider Radiology Diagnostic Radiology | DX: M79.641 Pain in right hand (principal); M79.642 Pain in left hand | CPT/HCPCS: 73130 ==

== ENCOUNTER 2024-11-24 09:00 | Outpatient (REF) | payer OTHER, SELFPAY ==
--- NOTE | ~2024-11-24 | MM_ITS ---
EXAMINATION: MM SCREENING DIGITAL BREAST TOMOSYNTHESIS, BILATERAL CLINICAL INFORMATION: Screening. Asymptomatic. COMPARISON: Mammography: Comparison is made with available priors TECHNIQUE: Digital breast mammography with tomosynthesis is performed in both the craniocaudal and mediolateral oblique views along with computer-aided detection (CAD). FINDINGS: The breasts are heterogeneously dense, which may obscure small masses (ACR BI-RADS breast composition Category c). Left: Asymmetry retroareolar region middle depth on MLO view. No suspicious calcifications or other abnormal findings. Right: There are no significant masses, abnormal calcifications, or other abnormalities. MM/MM tomosynthesis screening BI IMPRESSION: Additional imaging is recommended ASSESSMENT: BI-RADS BI-RADS 0 - Incomplete: Needs additional Imaging. RECOMMENDATION: 1. Additional views of the left breast. 2. Targeted ultrasound if warranted after review of the additional views. 3. Radiology department staff will contact the patient for additional imaging. Additional Imaging required Electronically signed by: Bea Castellano DO 11/25/2024 04:37 PM EDT
--- OUTSIDE RECORDS SUMMARY | 2024-11-24 10:29 | XMS_ITS | Encounter Summary ---
Author Organization [employer] Address [address] [place] [address] [address] [place] [address] Care Team Providers Care Predator Control Trapper Name Role Phone Shu Hurtado Primary Care Provider [phone] Hina Santos MD Unavailable [phone] Jovanni Byrd MD Unavailable Shu Hurtado Primary Care Provider [phone] Shu Hurtado Primary Care Provider [phone] Reason for Visit * Reason Comments Med Change Request Encounter Details Date Type Department Care Team ([facility] st Contact Info) Description 02/25/2024 Refill [facility] [address] [place], [place] [phone] Shu Hurtado FNP [address] [place], [place] [phone] Social History Tobacco Use Types Packs/Day Years [...] Assessment Author Several days 02/25/2024 3:31 PM EST Gucci Morrow MA * Feeling bad about yourself - [...] Not difficult at all 02/25/2024 3:31 PM EST Gucci Cody MA documented as of this encounter Plan of Treatment Not on file documented as of this encounter Visit Diagnoses Not on filedocumented in this encounter Additional Health Concerns Assessment Noted Time PHQ-9 Depression Total Score: 5 02/25/20 24 3:31 PM EST documented as of this encounter Care Teams Predator Control Trapper Relationship Specialty Start Date End Date Shu Hurtado FNP [address] [place] [address] PCP - General Family Medicine 11/05/21 08/17/24 Shu Hurtado FNP [address] [place] [address] PCP - General Family Medicine 08/18/24 08/18/24 Shu Hurtado FNP [address] [place] [address] PCP - General Family Medicine 09/04/24 Hina Santos MD [address] [place] [address] Hematology and Oncology 03/09/24 Jovanni Byrd MD [address] [place] [phone] Obstetrics and Gynecology 03/09/24 documented as of this encounter
--- OUTSIDE RECORDS SUMMARY | 2024-11-24 10:29 | XMS_ITS | Clinical Summary ---
Author Organization [employer] Address [address] [place] [address] 7[address] [place] [address] Care Team Providers Care Guide Cruise Name Role Phone Hina Santos MD Unavailable [phone] Jovanni Byrd MD Unavailable Shu Hurtado Primary Care Provider [phone] Allergies Active Allergy Reactions Criticality Noted Date [...] or moderate pain. 100 tablet 3 5 026 Active cyclobenzaprine (Flexeril) 10 MG tabletIndication s:Acute bilateral low back pain with bilateral sciatica Take 1 tablet (10 mg) by mouth 3 times daily for 10 days. 30 tablet 5 Active Diclofenac Sodium 1 % gelIndications:A cute bilateral low back pain with bilateral sciatica Apply 1 g topically if needed in the morning, at noon, and at bedtime (pain). 100 g 5 025 naproxen (Naprosyn) 500 MG tabletIndication s:Acute bilateral low back pain with bilateral sciatica Take 1 tablet (500 mg) by mouth 2 times daily. 60 tablet 5 025 Active Problems Problem Noted Date Diagnosed Date Acute pain of left shoulder 08/15/2024 Assessment & Plan (08/15/2024 9:17 AM EDT): - S/p mechanical fall at work on 08/03/24 - Cont alternating APAP/ibuprofen for pain control - Referral to [facility] placed Lipoma of left shoulder 06/25/2024 Assessment & Plan (08/15/2024 9:07 AM EDT): S/p removal May [address] Ortiz at [facility] Incision well healed Other neutropenia 09/21/2023 Overview (09/21/2023): Lab Results Component Value Date WBC 5.3 07/09/2023 WBC 3.5 (L) 07/02/2023 WBC 2.7 (L) 06/19/2023 NEUTABSAUTO 3.2 07/09/2023 NEUTABSAUTO 1.4 (L) 07/02/2023 NEUTABSAUTO 0.9 (L) 06/19/2023 Assessment & Plan (03/09/2024 10:25 PM EST): -Initial referral after two low readings. Following with [facility] Consult in August 2023 with suspicion of leukopenia r/t UTI or viral infection. Plan to monitor in 6 months. Assessment & Plan (09/21/2023 3:33 PM EDT): -Initial referral after two low readings. Following with [facility]. Consult in August 2023 with suspicion of leukopenia r/t UTI or viral infection. Plan to monitor in 6 months. PCB (post coital bleeding) 03/16/2023 Overview (06/17/2023): 10/26/22: [facility] NURSE Dr. Byrd - visit for post-coital bleeding. Biopsy of the endocervical polyp. Pathology: Cervix, polyp, biopsy: Small fragment of squamous mucosa within normal limits; negative for a squamous intraepithelial lesion. Assessment & Plan (03/09/2024 10:24 PM EST): Denies PCB since, follow up with [facility] as scheduled Assessment & Plan (06/17/2023 10:54 AM EDT): Denies PCB since, follow up with [facility] as scheduled Primary hypertension 07/19/2022 Assessment & [...] Oct 2021, pt reports sent back to [facility] (Last year ?2022) and was told results [...] Type Department Care Team Description 10/13/2024 Telephone [facility] [address] [place] [address] Shu Hurtado FNP Letter for School/Work 10/06/2024 10:15 AM EDT Office Visit [facility] [address] [place] [address] Elida Muse NP Fall, subsequent encounter (Primary Dx); Acute bilateral low back pain with bilateral sciatica 10/06/2024 Telephone [facility] [address] [place], [place] [phone] Shu Hurtado FNP 10/06/2024 Travel 10/03/2024 Refill [facility] [address] [place] [address] Shu Hurtado FNP Routine health maintenance 09/29/2024 10:00 AM EDT Office Visit [facility] [address] [place], [place] [phone] Shu Hurtado, MANAGER ETL Arthralgia of both hands (Primary Dx); Colon cancer screening; Encounter for immunization; Vaginal dryness, menopausal; Routine health maintenance 09/29/2024 Travel 09/11/2024 Telephone [facility] [address] [place], [place] [phone] Terry Lewis DMD from Last 3 Months Immunizations Immunization Administration [...] 10/06/2024 10:11 AM EDT Plan of Treatment Health Maintenance Due Date Last Done Comments CT Colonography 1975 Colonoscopy 1975 Colorectal Cancer Screening 1975 FIT DNA/Cologuard 1975 FIT 1975 FOBT 1975 Sigmoidoscopy 1975 Family Planning (PISQ) 01/20/1991 Hepatitis B Vaccines (1 of 3 - 19+ 3-dose series) 01/20/1995 Zoster Vaccines (1 of 2) 05/25/2020 COVID-19 Vaccine ( season) 2024 02/07/2021, 07/25/2020, 07/04/2020 Influenza Vaccine (#1) 2024 , 02/02/2021, 03/30/2020 Mammogram 11/18/2024 11/19/2023, 08/2022, 11/08/2021, Additional history exists Dental X-Ray: [...] 10/27/2027 10/26/2022, 10/07/2020 Lipid Panel 02/27/2029 02/28/2024, 040 11/2023, 07/14/2022, Additional history exists DTaP/Tdap/Td Vaccines [...] Quantitative, Real-Time PCR (02/28/2024 10:40 AM EST) Hepatitis C Viral Load <15 NOT DETECTED NOT DETECTED IU/mL [facility] HCV Log PCR <1.18 NOT DETECTED NOT DETECTED Log IU/mL [facility] Comment:For additional infor caron, please refer tohttp://education.Ziptr/faq/HSC65l0(This link is being provided for informational/educational purposes only.)THIS TEST WAS PERFORMED AT:[facility] [place] [phone] JUAN MD Blood 02/28/2024 10:4 0 AM EST 02/28/2024 2:22 PM EST Shu Hurtado [facility] BLOOD ORDERABLES Final Res ult [facility] [address] [place] [phone] * HIV-1/2 Antigen and Antibodies, Fourth Generation, with Reflexes (02/28/2024 10:40 AM EST) Pathologist [facility] HIV AB/AG Nonreactive Nonreactive [facility] Comment:HIV-1 p24 Ag and/or HIV-1/HIV-2 Ab not detected.A test result that is nonreactive does not exclude thepossibility of exposure to or infection with HIV-1 and/orHIV-2. Nonreactive results in this assay for individualswith prior exposure to HIV-1 and/or HIV-2 may be due toantigen and antibody levels that are below the limit ofdetection of this assay.The [employer] HIV Ag/Ab Combo assay result andsupplemental assay results should be interpreted inconjunction with the patient's clinical presentation,history and other laboratory results. If the results areinconsistent with clinical evidence, additional testing issuggested to confirm the result. Blood Venous blood specimen / Unknown 02/28/2024 10:40 AM EST 02/28/2024 2:28 PM EST Shu Hurtado [facility] BLOOD ORDERABLES Final Res ult Performing Organization Address [facility] de Phone Number [facility] [address] [place] [phone] [phone] * (ABNORMAL) Lipid Panel, Standard (02/28/2024 10:40 AM EST) Triglycerides 73 <150 mg/dL [facility] Comment:Desirable Triglyceri de: less than 150 mg/dLBorderline High Triglyceride 150-199 mg/dLHigh Triglyceride: 200-499 mg/dLVery High Triglyceride: greater than or equal to 5OO mg/dL Cholesterol 234(H) <200 mg/dL [facility] Comment:Desirable Cholestero l: less than 200 mg/dLBorderline High Cholesterol: 200-239 mg/dLHigh Cholesterol: greater than 239 mg/dL LDL Cholesterol Calculated 137(H) <100 mg/dL [facility] Comment:Desirable LDL: less than 100 mg/dLNear Optimal/Above Optimal LDL: 110- 129 mg/dLBorderline High LDL: 130-159 mg/dLHigh LDL: 160-189 mg/dLVery High LDL: greater than or equal to 190 mg/dL HDL Cholesterol 83 >40 mg/dL [facility] Comment:Desirable HDL: great er than 40 mg/dL Note: This HDL assay may give artificially low results in patients with liver disease. Blood Venous blood specimen / Unknown 02/28/2024 10:40 AM EST 02/28/2024 2:28 PM EST Shu Hurtado [facility] BLOOD ORDERABLES Final Res ult Performing Organization Address [facility] Co de Phone Number [facility] [address] [place] [address] [phone] * BI Mammogram Screening Tomosynthesis Bilateral (11/19/2023 8:55 AM EDT) Anatomical Region Laterality Modality Breast Bilateral Mammography 11/19/2023 8:55 AM EDT Narrative 12/03/2023 5:55 PM EDT [address] [place], [place] [address] Mammography Report Signed Patient: Nati Fierro MR#: [id number] : 1975 Acct:[id number] Age/Sex: 48 / F ADM Date: 11/19/23 Loc: HO.MAMMO Attending Dr: Shu Hurtado MANAGER ETL Ordering Physician: Shu Hurtado Results: 1Negat js Date of Service: 11/19/23 Follow Up: 1 Year From Orig inal Mammogram Procedure(s): MM tomosynthesis screening BI Accession Number(s): [id number] cc: Shu Hurtado EXAMINATION: MM SCREENING DIGITAL [...] 12/03/23 1752 DD/ 0855 TD/TT: 11/19/23 0915 Clinical Documentation Improvement Specialist: Procedure Note Donotuseinterpreter, Image - 12/03/[address] [place] [address] Mammography Report Signed Patient: Suzanne Fierro#: [id number] : 1975Acct:[id number] Age/Sex: 48 / FADM Date: 11/19/23 Loc: HO.MAMMO Attending Dr: Shu CERRATO Ordering Physician: Shu HurtadoPResults: 1Negat js Date of Service: 11/19/23Follow Up: 1 Year From Orig inal Mammogram Procedure(s): MM tomosynthesis screening BI Accession Number(s): [id number] cc: Shu Hurtado EXAMINATION: MM SCREENING DIGITAL [...] 12/03/23 1752 DD/ 0855 TD/TT: 11/19/23 0915 Clinical Documentation Improvement Specialist: Shu CERRATO IMG BI PROCEDURES Final Result * Pap Smear (10/26/2022 10:10 AM EDT) 10/26/2022 10:1 0 AM EDT 10/27/2022 9:00 AM EDT [facility] - 11/14/2022 9:40 AM EDT ----- ------- Name: Nati Fierro Age/Sex: 47/F : 1975 Unit#: [id number] Attend Dr: Jovanni Byrd MD Re10/26/22 Status: DEP REF Location: [facility] Disch: ----- ------- SPEC : [id number] RECD: 10/27/22-899 STATUS: ARIANNA WALL NUM: [id number] CHET: 10/26/22-[address] [facility] [address]: Jovanni Byrd MD ENTERED: 10/27/22-911 SP TYPE: Pap Smr [facility] DR: Shu Hurtado ORDERED: Pap Smear Interpretation Satisfactory for evaluation. Negative for intraepithelial lesion or malignancy. HPV mRNA E6/E7: NOT DETECTED This assay detects E6/E7 viral messenger RNA (mRNA) from 14 high-risk HPV types (16, 18, 31, 33, 35, 39, 45, 51, 52, 56, 58, 59, 66, 68) HPV testing performed by [employer], [place], [place]. See reference laboratory pion of the EMR for entire report. Clinical Information LMP:Postmenopausal Previous PAP test:Unknown date/findings Other history:Polyp of the cervix uteri, amenorrhea unspecified, postcoital and contact bleeding Material Received ThinPrep-Cervical Copies To: Shu Hurtado [address] [place] [address] Jovanni Byrd MD [address] [place] [address] Dr. Andrade [address] [place] [address] ----- ------- Signed (signature on file) MARIA LUISA Cee ([facility]) 11/14/22 0940 ----- ------- END OF REPORT [facility] External Provider LAB CYT OLOGY ORDERABLES Final Result [facility] [address] [place] [address] [phone] * HPV mRNA E6/E7 (10/07/2020 9:23 AM EDT) HPV nRNA E6/E7 Not Detected Not Detected [facility] Comment: Methodology: Manager Family-Mediated Amplification This assay detects E6/E7 viral messenger RNA (mRNA) from 14 high-risk HPV types (16,18,31,33,35,39,45,51,52,56,58,59,66,68). The analytical performance characteristics of this assay have been determined by [employer]. The modifications have not been cleared or approved by the FDA. This assay has been validated pursuant to the CLIA regulations and is used for clinical purposes. For additional information, please refer to http://education.amprice.SheZoom/faq/TBZ751b5 (This link if provided for information/ educational purposes only.) 10/07/2020 9:23 AM EDT us Susy Espinoza MD LAB BLOOD ORDERABLES Final Re sult [facility] [address] from Last 3 Months or Most Recently Relevant to Health Maintenance Insurance [facility] MEDICAID LIMITED ADULT DENTAL - N FULL (MEDICAID) GENERIC WORKERS' COMP GENERIC WORKERS' COMP Care Teams Guide Cruise Relationship Specialty Start Date End Date Shu Hurtado FNP [address] [place] [address] PCP - General Family Medicine 09/04/24 Hina Santos MD [address] [place] [address] Hematology and Oncology 03/09/24 Jovanni Byrd MD [address] [place] [address] Obstetrics and Gynecology 03/09/24
--- OUTSIDE RECORDS SUMMARY | 2024-11-24 10:29 | XMS_ITS | Encounter Summary ---
Author Organization [employer] Address [address] [place] [address] Care Team Providers Care Fermenting Cellar Dropper Name Role Phone Shu Hurtado Primary Care Provider [phone] Hina Santos MD Unavailable [phone] Jovanni Byrd MD Unavailable Shu Hurtado Primary Care Provider [phone] Shu Hurtado Primary Care Provider [phone] Encounter Details Date Type Department Care Team (Late st Contact Info) Description 02/14/2022 Abstract [facility] [address] [place], [place] [phone] Provider, MD Samanta Social History Tobacco Use [...] on filedocumented in this encounter Care Teams Fermenting Cellar Dropper Relationship Specialty Start Date End Date Shu Hurtado FNP [address] [place] [address] PCP - General Family Medicine 11/05/21 08/17/24 Shu Hurtado FNP [address] [place] [address] PCP - General Family Medicine 08/18/24 08/18/24 Shu Hurtado FNP [address] [place] [address] [phone] PCP - General Family Medicine 09/04/24 Hina Santos MD [address] [place] [address] [phone] Hematology and Oncology 03/09/24 Jovanni Byrd MD [address] [place] [address] Obstetrics and Gynecology 03/09/24 documented as of this encounter
--- OUTSIDE RECORDS SUMMARY | 2024-11-24 10:29 | XMS_ITS | Encounter Summary ---
Author Organization [employer] Address [address] [place] [address] 7 [place] [address] Care Team Providers Care Vacuum Cleaner Repairer Name Role Phone Hina Santos MD Unavailable [phone] Jovanni Byrd MD Unavailable Shu Hurtado Primary Care Provider [phone] Reason for Visit * Reason Onset Date Comments Letter for School/Work 10/13/2024 Encounter Details Date Type Department Care Team ([facility] st Contact Info) Description 10/13/[address] [facility] [address] [place] [address] Shu Hurtado FNP [address] [place], [place] [phone] Letter for School/Work Social History Tobacco Use [...] beseen again. 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 * Telephone Encounter - [...] Time PHQ-9 Depression Total Score: 5 02/25/20 3:31 PM EST documented as of this encounter Care Teams Vacuum Cleaner Repairer Relationship Specialty Start Date End Date Shu Hurtado FNP [address] [place] [address] PCP - General Family Medicine 09/04/24 Hina Santos MD [address] [place] [address] Hematology and Oncology 03/09/24 Jovanni Byrd MD [address] [place] [address] Obstetrics and Gynecology 03/09/24 documented as of this encounter
== END 2024-11-24 09:01 | disposition home or self-care (01) ==
LOC: HO.MAMMO 09:00
PROVIDERS: Visit Provider Registered Nurse
DX: Z12.31 Encounter for screening mammogram for malignant neoplasm of breast (principal)
CPT/HCPCS: 77063; 77067

== ENCOUNTER → 2024-11-24 09:00 | Outpatient (BNV) | payer OTHER, SELFPAY | PROVIDERS: Visit Provider Internal Medicine | DX: Z12.31 Encounter for screening mammogram for malignant neoplasm of breast (principal) | CPT/HCPCS: 77063; 77067 ==

== ENCOUNTER 2024-12-19 08:34 | Outpatient (REF) | payer OTHER, SELFPAY ==
--- NOTE | ~2024-12-19 | MM_ITS ---
EXAMINATION: MM DIAGNOSTIC DIGITAL BREAST TOMOSYNTHESIS, LEFT CLINICAL INFORMATION: Call back from screening for asymmetry in the left retroareolar region on MLO view. COMPARISON: Mammography: Priors on PACS. TECHNIQUE: Digital breast tomosynthesis is performed in both the craniocaudal and mediolateral oblique views along with computer-aided detection (CAD). Synthesized 2D images are generated from the tomosynthesis. FINDINGS: The breasts are heterogeneously dense, which may obscure small masses. Asymmetry in the left retroareolar region on MLO view does not persist on additional imaging projections and likely represented overlapping breast tissue. There are no significant masses, abnormal calcifications, or other abnormalities. MM/MM tomosynthesis added views L IMPRESSION: No mammographic evidence of malignancy. ASSESSMENT: BI-RADS Category 1: Negative RECOMMENDATION: 1 year F/U Results were provided to the patient at time of visit by the technologist. This patient's information was entered into a reminder system with a target due date for their next mammogram. Electronically signed by: Bea Castellano DO 12/19/2024 10:00 AM EDT
--- OUTSIDE RECORDS SUMMARY | 2024-12-19 08:49 | XMS_ITS | Encounter Summary ---
Author Organization [employer] Address [address] [place] [address] Care Team Providers Care Edging Machine Setter Name Role Phone Shu Hurtado Primary Care Provider [phone] Hina Santos MD Unavailable [phone] Jovanni Byrd MD Unavailable Shu Hurtado Primary Care Provider [phone] Shu Hurtado Primary Care Provider [phone] Encounter Details Date Type Department Care Team (Late st Contact Info) Description 02/14/[address] [facility] [address] [place], [place] [phone] Provider, MD Samanta Social History Tobacco Use [...] on filedocumented in this encounter Care Teams Edging Machine Setter Relationship Specialty Start Date End Date Shu Hurtado FNP [address] [place] [address] PCP - General Family Medicine 11/05/21 08/17/24 Shu Hurtado FNP [address] [place] [address] PCP - General Family Medicine 08/18/24 08/18/24 Shu Hurtado FNP [address] [place] [address] [phone] PCP - General Family Medicine 09/04/24 Hina Santos MD [address] [place] [address] [phone] Hematology and Oncology 03/09/24 Jovanni Byrd MD [address] [place] [address] Obstetrics and Gynecology 03/09/24 documented as of this encounter
--- OUTSIDE RECORDS SUMMARY | 2024-12-19 08:49 | XMS_ITS | Encounter Summary ---
Author Organization [employer] Address [address] [place] [address] 7 [place] [address] Care Team Providers Care Disposal Man Name Role Phone Shu Hurtado Primary Care Provider [phone] Hina Santos MD Unavailable [phone] Jovanni Byrd MD Unavailable Shu Hurtado Primary Care Provider [phone] Shu Hurtado Primary Care Provider [phone] Reason for Visit * Reason Comments Med Change Request Encounter Details Date Type Department Care Team ([facility] st Contact Info) Description 02/25/2024 Refill [facility] [address] [place], [place] [phone] Shu Hurtado FNP [address] [place], [place] [phone] Social History Tobacco Use Types Packs/Day Years [...] documented as of this encounter Care Teams Disposal Man Relationship Specialty Start Date End Date Shu Hurtado FNP [address] [place] [address] PCP - General Family Medicine 11/05/21 08/17/24 Shu Hurtado FNP [address] [place] [address] PCP - General Family Medicine 08/18/24 08/18/24 Shu Hurtado FNP [address] [place] [address] PCP - General Family Medicine 09/04/24 Hina Santos MD [address] [place] [address] Hematology and Oncology 03/09/24 Jovanni Byrd MD [address] [place] [address] Obstetrics and Gynecology 03/09/24 documented as of this encounter
--- OUTSIDE RECORDS SUMMARY | 2024-12-19 08:49 | XMS_ITS | Encounter Summary ---
Author Organization [employer] Address [address] [place] [address] 7 [place] [address] Care Team Providers Care Senior Software Engineering Manager Name Role Phone Hina Santos MD Unavailable [phone] Jovanni Byrd MD Unavailable Shu Hurtado Primary Care Provider [phone] Reason for Visit * Reason Onset Date Comments Letter for School/Work 10/13/2024 Encounter Details Date Type Department Care Team ([facility] st Contact Info) Description 10/13/2024 Telephone [facility] [address] [place] [address] Shu Hurtado FNP [address] [place], [place] [phone] Letter for School/Work Social History Tobacco Use [...] beseen again. 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 * Telephone Encounter - [...] documented as of this encounter Care Teams Senior Software Engineering Manager Relationship Specialty Start Date End Date Shu Hurtado FNP [address] [place] [address] PCP - General Family Medicine 09/04/24 Hina Santos MD [address] [place] [address] Hematology and Oncology 03/09/24 Jovanni Byrd MD [address] [place] [address] Obstetrics and Gynecology 03/09/24 documented as of this encounter
--- OUTSIDE RECORDS SUMMARY | 2024-12-19 08:49 | XMS_ITS | Clinical Summary ---
Author Organization [employer] Address [address] [place] [address] 7[address] [place] [address] Care Team Providers Care Insurance Adjustor Name Role Phone Hina Santos MD Unavailable Jovanni Byrd MD Unavailable Shu Hurtado Primary Care Provider [phone] Allergies Active Allergy Reactions Criticality Noted Date [...] for 10 days. 30 tablet 5 Active Active Problems Problem Noted Date Diagnosed Date Acute pain of left shoulder 08/15/2024 Assessment & Plan (08/15/2024 9:17 AM EDT): - S/p mechanical fall at work on 08/03/24 - Cont alternating APAP/ibuprofen for pain control - Referral to [facility] placed Lipoma of left shoulder 06/25/2024 Assessment & Plan (08/15/2024 9:07 AM EDT): S/p removal May [address] Ortiz at [facility] Incision well healed Other neutropenia 09/21/2023 Overview (09/21/2023): Lab Results Component Value Date WBC 5.3 07/09/2023 WBC 3.5 (L) 07/02/2023 WBC 2.7 (L) 06/19/2023 NEUTABSAUTO 3.2 07/09/2023 NEUTABSAUTO 1.4 (L) 07/02/2023 NEUTABSAUTO 0.9 (L) 06/19/2023 Assessment & Plan (03/09/2024 10:25 PM EST): -Initial referral after two low readings. Following with [facility] Consult in August 2023 with suspicion of leukopenia r/t UTI or viral infection. Plan to monitor in 6 months. Assessment & Plan (09/21/2023 3:33 PM EDT): -Initial referral after two low readings. Following with [facility]. Consult in August 2023 with suspicion of leukopenia r/t UTI or viral infection. Plan to monitor in 6 months. PCB (post coital bleeding) 03/16/2023 Overview (06/17/2023): 10/26/22: [facility]VIS[facility] Dr. Byrd - visit for post-coital bleeding. Biopsy of the endocervical polyp. Pathology: Cervix, polyp, biopsy: Small fragment of squamous mucosa within normal limits; negative for a squamous intraepithelial lesion. Assessment & Plan (03/09/2024 10:24 PM EST): Denies PCB since, follow up with [facility] as scheduled Assessment & Plan (06/17/2023 10:54 AM EDT): Denies PCB since, follow up with [facility] as scheduled Primary hypertension 07/19/2022 Assessment [...] Mammo: 11/19/23: Mammo BIRADS 1 Colon cancer: Doron (per records, received Oct 2021, pt reports [...] Encounters Date Type Department Care Team Description 11/24/2024 Orders Only [facility] [address] [place] [address] Shu Hurtado FNP 10/13/2024 Telephone [facility] [address] [place] [address] Shu Hurtado FNP Letter for School/Work 10/06/2024 10:15 AM EDT Office Visit [facility] [address] [place] [address] Elida Muse NP Fall, subsequent encounter (Primary Dx); Acute bilateral low back pain with bilateral sciatica 10/06/2024 Telephone [facility] [address] [place] [address] Shu Hurtado FNP 10/06/2024 Travel 10/03/2024 Refill [facility] [address] [place], [place] [phone] Shu Hurtdao FNP Routine health maintenance 09/29/2024 10:00 AM EDT Office Visit [facility] [address] [place], [place] [phone] Shu Hurtado FNP Arthralgia of both hands (Primary Dx); Colon cancer screening; Encounter for immunization; Vaginal dryness, menopausal; Routine health maintenance 09/29/2024 Travel from Last 3 Months Immunizations Immunization Administration [...] Influenza Vaccine (#1) 2024 , 02/02/2021, 03/30/2020 Dental X-Ray: Bitewings 12/20/2024 12/20/2023 Dental Oral Exam 12/26/2024 06/25/2024, 12/20/2023 Dental Prophylaxis 12/26/2024 06/25/2024, 12/20/2023 Alcohol/Substance Use Screening 02/24/2025 02/25/2024 Depression Screening 02/24/2025 02/25/2024, 02/25/20 SDOH Screening 02/24/2025 02/25/2024 Disability Screening 09/29/2025 09/29/2024 Tobacco Screening 10/06/2025 10/06/2024 Mammogram 11/24/2025 11/24/2024, 11/2023, 11/15/2022, Additional history exists Dental X-Ray: Full Mouth 12/20/2026 12/20/2023 Cervical [...] Procedure Name Priority Date/Time Associated Diagnosis Comments BI MAMMOGRAM SCREENING TOMOSYNTHESIS BILATERAL Routine 11/24/2024 9:10 AM EDT PROPHYLAXIS - ADULT Routine 06/25/2024 9 :00 [...] RADIOGRAPHIC IMAGES Routine 12/20/2023 9:00 AM EDT PAP SMEAR Routine 10/26/2022 10:10 AM EDT HPV MRNA E6/E7 Routine 10/07/2020 9:23 AM EDT from Last 3 Months or Most Recently Relevant to Health Maintenance Results * BI Mammogram Screening Tomosynthesis Bilateral (11/24/2024 9:10 AM EDT) Anatomical Region Laterality Modality Breast Bilateral Mammography 11/24/2024 9:10 AM EDT Narrative 11/25/2024 4:40 PM EDT [facility]riela [facility] [address] [place], [place] [id number] Mammography Report Signed Patient: Nati Fierro MR#: [id number] : 1975 Acct:[id number] Age/Sex: 49 / F ADM Date: 11/24/24 Loc: HO.MAMMO Attending Dr: Shu CERRATO Ordering Physician: Shu Hurtado Results: 0Incom plete: Needs Additional Imaging Evaluation Date of Service: 11/24/24 Follow Up: Additional Imagi ng Procedure(s): MM tomosynthesis screening BI Accession Number(s): [id number] cc: Shu Hurtado Reason For Exam: SCREENING EXAMINATION: MM SCREENING DIGITAL BREAST TOMOSYNTHESIS, BILATERAL CLINICAL INFORMATION: Screening. Asymptomatic. COMPARISON: Mammography: Comparison is made with available priors TECHNIQUE: Digital breast mammography with tomosynthesis is performed in both the craniocaudal and mediolateral oblique views along with computer-aided detection (CAD). FINDINGS: The breasts are heterogeneously dense, which may obscure small masses (ACR BI-RADS breast composition Category c). Left: Asymmetry retroareolar region middle depth on MLO view. No suspicious calcifications or other abnormal findings. Right: There are no significant masses, abnormal calcifications, or other abnormalities. MM/MM tomosynthesis screening BI IMPRESSION: Additional imaging is recommended ASSESSMENT: BI-RADS BI-RADS 0 - Incomplete: Needs additional Imaging. RECOMMENDATION: 1. Additional views of the left breast. 2. Targeted ultrasound if warranted after review of the additional views. 3. Radiology department staff will contact the patient for additional imaging. Additional Imaging required Electronically signed by: Bea Castellano DO 11/25/2024 04:37 PM EDT Dictated By: Bea Castellano DO Signed By: <Electronically signed by Bea Castellano DO in OV> 11/25/24 1637 DD/ 0910 TD/TT: 11/24/24 0930 Maintenance Mechanic: Procedure Note Donotuseinterpreter, Image - 11/25/[facility] [address] [place], [place] [address] Mammography Report Signed Patient: Suzanne Fierro#: [id number] : 1975Acct:[id number] Age/Sex: 49 / FADM Date: 11/24/24 Loc: HO.MAMMO Attending Dr: Shu CERRATO Ordering Physician: Shu HurtadoPResults: 0Incom plete: Needs Additional Imaging Evaluation Date of Service: 11/24/24Follow Up: Additional Imagi ng Procedure(s): MM tomosynthesis screening BI Accession Number(s): [id number] cc: Shu Hurtado Reason For Exam: SCREENING EXAMINATION: MM SCREENING DIGITAL BREAST TOMOSYNTHESIS, BILATERAL CLINICAL INFORMATION: Screening. Asymptomatic. COMPARISON: Mammography: Comparison is made with available priors TECHNIQUE: Digital breast mammography with tomosynthesis is performed in both the craniocaudal and mediolateral oblique views along with computer-aided detection (CAD). FINDINGS: The breasts are heterogeneously dense, which may obscure small masses (ACR BI-RADS breast composition Category c). Left: Asymmetry retroareolar region middle depth on MLO view. No suspicious calcifications or other abnormal findings. Right: There are no significant masses, abnormal calcifications, or other abnormalities. MM/MM tomosynthesis screening BI IMPRESSION: Additional imaging is recommended ASSESSMENT: BI-RADS BI-RADS 0 - Incomplete: Needs additional Imaging. RECOMMENDATION: 1. Additional views of the left breast. 2. Targeted ultrasound if warranted after review of the additional views. 3. Radiology department staff will contact the patient for additional imaging. Additional Imaging required Electronically signed by: Bea Castellano DO 11/25/2024 04:37 PM EDT Dictated By: Bea Castellano DO Signed By: <Electronically signed by Bea Castellano DO in OV> 11/25/24 1637 DD/ 0910 TD/TT: 11/24/24 0930 Maintenance Mechanic: Shu CERRATO IMG BI PROCEDURES Edited Resul t - Final * Hepatitis C Viral RNA, Quantitative, Real-Time PCR (02/28/2024 10:40 AM EST) Hepatitis C Viral Load <15 NOT DETECTED NOT DETECTED IU/mL [facility] HCV Log PCR <1.18 NOT DETECTED NOT DETECTED Log IU/mL [facility] Comment:For additional infor caron, please refer tohttp://education.[employer]/faq/MNM89v8(This link is being provided for informational/educational purposes only.)THIS TEST WAS PERFORMED AT[employer] [place] [phone] JUAN MD Blood 02/28/2024 10:4 0 AM EST 02/28/2024 2:22 PM EST Shu Hurtado [facility] LAB BLOOD ORDERABLES Final Res ult Performing Organization Address City/State/[facility] Co de Phone Number [facility] [address] [place] [address] [phone] * HIV-1/2 Antigen and Antibodies, Fourth Generation, with Reflexes (02/28/2024 10:40 AM EST) HIV AB/AG Nonreactive Nonreactive [facility] Comment:HIV-1 p24 Ag and/or HIV-1/HIV-2 Ab not detected.A test result that is nonreactive does not exclude thepossibility of exposure to or infection with HIV-1 and/orHIV-2. Nonreactive results in this assay for individualswith prior exposure to HIV-1 and/or HIV-2 may be due toantigen and antibody levels that are below the limit ofdetection of this assay.The [employer] HIV Ag/Ab Combo assay result andsupplemental assay results should be interpreted inconjunction with the patient's clinical presentation,history and other laboratory results. If the results areinconsistent with clinical evidence, additional testing issuggested to confirm the result. Blood Venous blood specimen / Unknown 02/28/2024 10:40 AM EST 02/28/2024 2:28 PM EST us Shu CARBALLOP LAB BLOOD ORDERABLES Final Res ult Performing Organization Address City/State/[facility] Co de Phone Number [facility] [address] [place] [address] [phone] * (ABNORMAL) Lipid Panel, Standard (02/28/2024 10:40 AM EST) Triglycerides 73 <150 mg/dL [facility] Comment:Desirable Triglyceri de: less than 150 mg/dLBorderline High Triglyceride 150-199 mg/dLHigh Triglyceride: 200-499 mg/dLVery High Triglyceride: greater than or equal to 5OO mg/dL Cholesterol 234(H) <200 mg/dL [facility] Comment:Desirable Cholestero l: less than 200 mg/dLBorderline High Cholesterol: 200-239 mg/dLHigh Cholesterol: greater than 239 mg/dL LDL Cholesterol Calculated 137(H) <100 mg/dL [facility] Comment:Desirable LDL: less than 100 mg/dLNear Optimal/Above Optimal LDL: 110- 129 mg/dLBorderline High LDL: 130-159 mg/dLHigh LDL: 160-189 mg/dLVery High LDL: greater than or equal to 190 mg/dL HDL Cholesterol 83 >40 mg/dL [facility] Comment:Desirable HDL: great er than 40 mg/dL Note: This HDL assay may give artificially low results in patients with liver disease. Blood Venous blood specimen / Unknown 02/28/2024 10:40 AM EST 02/28/2024 2:28 PM EST Shu Hurtado BRAKE OPERATOR HELPER LAB BLOOD ORDERABLES Final Res ult Performing Organization Address [facility]/ZIP Co de Phone Number [facility] [address] [place] [address] [phone] * Pap Smear (10/26/2022 10:10 AM EDT) 10/26/2022 10:1 0 AM EDT 10/27/2022 9:00 AM EDT Narrative [facility] - 11/14/2022 9:40 AM EDT ----- ------- Name: Nati Fierro Age/Sex: 47/F : 1975 Unit#: [id number] Attend Dr: Jovanni Byrd MD Re10/26/22 Status: DEP REF Location: [facility] Disch: ----- ------- SPEC : [id number] RECD: 10/27/22 STATUS: ARIANNA WALL NUM: [id number] CHET: 10/26/22-[address] [facility] [address]: Jovanni Byrd MD ENTERED: 10/27/22 SP TYPE: Pap Smr OTHR DR: Shu Hurtado ORDERED: Pap Smear Interpretation Satisfactory for evaluation. Negative for intraepithelial lesion or malignancy. HPV mRNA E6/E7: NOT DETECTED This assay detects E6/E7 viral messenger RNA (mRNA) from 14 high-risk HPV types (16, 18, 31, 33, 35, 39, 45, 51, 52, 56, 58, 59, 66, 68) HPV testing performed by [facility], [place], [place]. See reference laboratory pion of the EMR for entire report. Clinical Information LMP:Postmenopausal Previous PAP test:Unknown date/findings Other history:Polyp of the cervix uteri, amenorrhea unspecified, postcoital and contact bleeding Material Received ThinPrep-Cervical Copies To: Shu Hurtado [address] [place] [address] Jovanni Byrd MD [address] [place] [address] [address] ----- ------- Signed (signature on file) MARIA LUISA Cee ([facility]) 11/14/22 0940 ----- ------- END OF REPORT [facility] External Provider LAB [facility] ORDERABLES Final Result [facility] [address] [place] [phone] * HPV mRNA E6/E7 (10/07/2020 9:23 AM EDT) HPV nRNA E6/E7 Not Detected Not Detected [facility] Comment: Methodology: Physical Therapy Aides Teacher-Mediated Amplification This assay detects E6/E7 viral messenger RNA (mRNA) from 14 high-risk HPV types (16,18,31,33,35,39,45,51,52,56,58,59,66,68). The analytical performance characteristics of this assay have been determined by [facility]. The modifications have not been cleared or approved by the FDA. This assay has been validated pursuant to the CLIA regulations and is used for clinical purposes. For additional information, please refer to http://education.[employer]el[employer]/faq/HPL068j2 (This link if provided for information/ educational purposes only.) 10/07/2020 9:23 AM EDT us Susy Espinoza MD LAB BLOOD ORDERABLES Final Re sult [facility] [address] from Last 3 Months or Most Recently Relevant to Health Maintenance Insurance [facility] MEDICAID LIMITED ADULT DENTAL - N FULL (MEDICAID) GENERIC WORKERS' COMP GENERIC WORKERS' COMP Care Teams Insurance Adjustor Relationship Specialty Start Date End Date Shu Hurtado FNP [address] [place] [address] [place] [address] PCP - General Family Medicine 09/04/24 Hina Santos MD [address] [place] [phone] Hematology and Oncology 03/09/24 Jovanni Byrd MD [address] [place] [phone] Obstetrics and Gynecology 03/09/24
== END 2024-12-19 08:35 | disposition home or self-care (01) ==
LOC: HO.MAMMO 08:34
PROVIDERS: PCP Registered Nurse; Visit Provider Registered Nurse
DX: N64.89 Other specified disorders of breast (principal)
CPT/HCPCS: 77061; 77065

== ENCOUNTER → 2024-12-19 09:00 | Outpatient (BNV) | payer OTHER, SELFPAY | PROVIDERS: PCP Registered Nurse; Visit Provider Internal Medicine | DX: R92.8 Other abnormal and inconclusive findings on diagnostic imaging of breast (principal); R92.332 Mammographic heterogeneous density, left breast | CPT/HCPCS: 77061; 77065 ==